=== PATIENT | female | born 1955 | race American Indian/Alaskan Native ===

== ENCOUNTER 2016-10-30 06:14 | Day surgery (SDC) | payer MEDICAID ==
[2016-10-30 07:10] VITALS: BMI 33.3
[2016-10-30 07:35] VITALS: O2SAT 100
[2016-10-30] MEDS ORDERED: Propofol 10 mg/ml Inj (20 ML) ONE (08:02)
[2016-10-30] MEDS ORDERED: Atropine 0.4 mg/ml Inj (1 mL) ONE (08:07)
--- NOTE | 2016-10-30 08:07 | CP.SDSHP ---
Same Day Surgery H & P - History Proposed Procedure: endoscopy colonoscopy Pre-Op Diagnosis: anemia, wt loss, reflux, change bowels - Previous Medical/Surgical History Cardiac: Hypertension Comments: duodenal cancer - Allergies Allergies: Allergies No Known Allergies Allergy (Verified 10/30/16 07:10) - Physical Exam Vital Signs: Vital Signs 10/30/16 10/30/16 07:34 08:01 Temperature 57 F L 97 F L Pulse Rate 9 L 57 L Respiratory 100 H 19 Rate Blood Pressure 160/71 H 160/71 H O2 Sat by Pulse 100 100 Oximetry Mental Status: Alert & Oriented x3 Neuro: WNL Heart: WNL Lungs: WNL GI: WNL - {Optional Preform as Required} Abdomen: WNL - Impression Impression: reflux, anemia, change bowels Pt. Evaluated Today:Candidate for Anesthesia & Procedure: Yes - Date & Time Date: 10/30/16 Time: 08:06 Short Stay Discharge - Short Stay Discharge Admitting Diagnosis/Reason for Visit: CHANGE IN BOWEL HABITS,GASTRO-ESOPHAGEAL REFLUX Disposition: HOME/ ROUTINE
[2016-10-30] MEDS ORDERED: ePHEDrine 50 mg/ml Inj ONE (08:23)
[2016-10-30 08:49] VITALS: TEMP 98.9
[2016-10-30 13:46] VITALS: BP 144/60; PULSE 61; RESP 12
== END 2016-10-30 11:20 | disposition home or self-care (01) ==
LOC: C.ENDO 06:14
PROVIDERS: ATTEND Internal Medicine Gastroenterology
DX: R19.4 Change in bowel habit (principal); K64.9 Unspecified hemorrhoids; K21.0 Gastro-esophageal reflux disease with esophagitis; D64.9 Anemia, unspecified; R63.4 Abnormal weight loss
CPT/HCPCS: 43239; 45378; 88305; J0461; J2001; J2704; J3010

== ENCOUNTER 2018-01-02 11:16 | Inpatient (IN) | payer MEDICARE ==
[2018-01-02 11:17] VITALS: BMI 33.3
[2018-01-02] MEDS ORDERED: Sodium Chloride 0.9% 1,000 ML IV ONE (12:12)
--- NOTE | 2018-01-02 13:00 | CT ---
Date of service: 01/02/2018 PROCEDURE: CT HEAD WITHOUT CONTRAST. HISTORY: syncope, left frontal contusion, colon cancer COMPARISON: None available. TECHNIQUE: Axial computed tomography images were obtained through the head/brain without intravenous contrast. Radiation dose: Total exam DLP = 970.2 mGy-cm. This CT exam was performed using one or more of the following dose reduction techniques: Automated exposure control, adjustment of the mA and/or kV according to patient size, and/or use of iterative reconstruction technique. FINDINGS: HEMORRHAGE: No intracranial hemorrhage. BRAIN: No mass effect or edema. No atrophy or chronic microvascular ischemic changes. Small hypodensities in the bilateral basal ganglia may represent prominent perivascular spaces versus small chronic lacunar infarcts. VENTRICLES: Unremarkable. No hydrocephalus. Cavum septum pellucidum. CALVARIUM: Unremarkable. PARANASAL SINUSES: Unremarkable as visualized. No significant inflammatory changes. MASTOID AIR CELLS: Unremarkable as visualized. No inflammatory changes. OTHER FINDINGS: Soft tissue swelling overlying the left frontal cranium IMPRESSION: No acute intracranial abnormality. Small hypodensities in the bilateral basal ganglia may represent prominent perivascular spaces versus small chronic lacunar infarcts. Soft tissue swelling overlying the left frontal cranium. If symptoms persists, consider correlation with MRI.
[2018-01-02] MEDS ORDERED: Sodium Chloride 0.9% 1,000 ML ONE (13:09)
[2018-01-02 13:14] LABS: BASO % 1.2 % (0.0-2.0); EOS # 0.1 K/uL (0.0-0.7); EOS % 3.5 % (0.0-4.0); HEMOGLOBIN 11.3 g/dL (11.0-16.0); LYMPH # 0.9 K/uL (1.0-4.3); LYMPH % 36.7 % (20.0-40.0); MEAN CORPUSCULAR HGB CONC 32.9 g/dL (33.0-37.0); MEAN PLATELET VOLUME 7.4 fL (7.2-11.7); MONO # 0.2 K/uL (0.0-0.8); MONO % 6.4 % (0.0-10.0); NEUT # 1.3 K/uL (1.8-7.0); NEUT % 52.2 % (50.0-75.0); NRBC % 0.2 % (0.0-2.0); RBC 4.36 Mil/uL (3.80-5.20); RED CELL DISTRIBUTION WIDTH 16.3 % (11.5-14.5)
[2018-01-02 13:15] LABS: WHITE BLOOD COUNT 2.4 K/uL (4.8-10.8)
[2018-01-02 13:23] LABS: SQUAMOUS EPITHIAL 5 /hpf (0-5); URINE BACTERIA RARE (<OCC); URINE BILIRUBIN NEGATIVE (NEGATIVE); URINE BLOOD NEGATIVE (NEGATIVE); URINE CLARITY Hazy (Clear); URINE COLOR Yellow (YELLOW); URINE GLUCOSE (UA) 3+ mg/dL (Normal); URINE LEUKOCYTE ESTERASE NEG Leu/uL (Negative); URINE PROTEIN 1+ mg/dL (NEGATIVE)
[2018-01-02 13:25] LABS: INR 1.5; PROTHROMBIN TIME 16.9 SECONDS (9.7-12.2)
[2018-01-02 13:29] LABS: ALB/GLOB RATIO 1.2 (1.0-2.1); ALBUMIN 3.2 g/dL (3.5-5.0); ALT/SGPT 26 U/L (9-52); AST/SGOT 22 U/L (14-36); BLOOD UREA NITROGEN 13 mg/dL (7-17); CALCIUM 8.3 mg/dl (8.6-10.4); GFR NON-AFRICAN AMERICAN > 60
--- NOTE | 2018-01-02 13:29 | RAD ---
Date of service: 01/02/2018 HISTORY: Shortness of breath COMPARISON: No prior. FINDINGS: LUNGS: Mild venous congestion. Left central venous catheter tip extending to the cavoatrial junction. Mild linear atelectasis at the right base. PLEURA: No significant pleural effusion identified, no pneumothorax apparent. CARDIOVASCULAR: No atherosclerotic calcification present Normal. OSSEOUS STRUCTURES: No significant abnormalities. VISUALIZED UPPER ABDOMEN: Normal. OTHER FINDINGS: None. IMPRESSION: Mild venous congestion. Left central venous catheter tip extending to the cavoatrial junction. Mild linear atelectasis at the right base.
[2018-01-02 13:41] LABS: B-TYPE NATRIURETIC PEPTIDE 75.3 pg/mL (0-900)
--- NOTE | 2018-01-02 15:02 | C.PDOC ---
History Of Present Illness 62 year old female referred by Dr. Alarcon for evaluation of a fall that occurred at the patients home. Patient states she struck her left forehead on fall, but does not remember falling. Patient states she did not stand suddenly when it happened. Patient reports she is under treatment for small bowel cancer and is receiving chemotherapy. Patient states she had a ct scan showing normal results 2 days ago. Denies fever, chills, neck pain, photophobia. - HPI Time Seen by Provider: 01/02/18 12:05 Chief Complaint (Nursing): Trauma History Per: Patient History/Exam Limitations: no limitations Onset/Duration Of Symptoms: Days Past Medical History Reviewed: Historical Data, Nursing Documentation, Vital Signs Vital Signs: Last Vital Signs Temp 98.0 F 01/02/18 11:22 Pulse 63 01/02/18 11:22 Resp 19 01/02/18 11:22 BP 128/73 01/02/18 11:22 Pulse Ox 100 01/02/18 11:22 - Medical History PMH: Colonic Polyps Denies: Fractures, TIA Surgical History: Endoscopy Family History: States: No Known Family Hx - Social History Hx Alcohol Use: No Hx Substance Use: No Review Of Systems Except As Marked, All Systems Reviewed And Found Negative. Constitutional: Negative for: Fever, Chills Cardiovascular: Negative for: Chest Pain Respiratory: Negative for: Cough, Shortness of Breath Musculoskeletal: Negative for: Neck Pain Neurological: Positive for: Other ((-) photophobia) Physical Exam - Physical Exam Appears: Non-toxic, No Acute Distress, Other (Pleasant) Skin: Warm, Dry Head: Atraumatic, Normacephalic Eye(s): bilateral: PERRL, EOMI Oral Mucosa: Moist Neck: Supple Cardiovascular: Rhythm Regular, No Murmur Respiratory: Normal Breath Sounds, No Rales, No Rhonchi, No Wheezing Gastrointestinal/Abdominal: Soft, No Tenderness Neurological/Psych: Oriented x3, Other (Awake, alert and oriented) ED Course And Treatment - Laboratory Results Result Diagrams: 01/02/18 13:07 01/02/18 13:07 Lab Interpretation: Normal (ua neg, trop neg.) ECG: Interpreted By Pr ECG Rhythm: Sinus Rhythm ECG Interpretation: Normal Rate From EC O2 Sat by Pulse Oximetry: 100 (RA) Pulse Ox Interpretation: Normal - Radiology CXR: Interpreted by Me CXR Interpretation: Yes: No Acute Disease - CT Scan/US head CT Other Rad Studies (CT/US): Radiology Report Reviewed (no acute findings) Reevaluation Time: 15:02 Reassessment Condition: Improved - Physician Consult Information Outcome Of Conversation: 1000, 1500 d/w akhil Villatoro to Obs, will consult. 1500: d/w akhil Martins to med/Surg Obs Medical Decision Making Medical Decision Making: syncope from standing with L frontal contusion/superficial lac normal w/u ? vasovagal vs meningial signs. consider LP and Brain MRI Plan: * CT head * EKG * Labs * Chest x-ray * Imodium * IV fluids * Toradol * Urinalysis Disposition Doctor Will See Patient In The: Office Counseled Patient/Family Regarding: Studies Performed, Diagnosis - Disposition Disposition: HOME/ ROUTINE Disposition Time: 15:04 Condition: GOOD - Clinical Impression Clinical Impression: Syncope and collapse, Head contusion - Scribe Statement The provider has reviewed the documentation as recorded by the Carlos A Vega Adi Provider Attestation: All medical record entries made by the Carlos A were at my direction and pe rsonally dictated by me. I have reviewed the chart and agree that the record accurately reflects my personal performance of the history, physical exam, medical decision making, and the department course for this patient. I have also personally directed, reviewed, and agree with the discharge instructions and disposition.
[2018-01-02] MEDS: Sodium Chloride 0.9% 1,000 ML IV SCH (17:00)
[2018-01-02] MEDS: (Novolin R) Insulin Human Regular 100 units/ml vial SC SCH (21:56)
--- NOTE | 2018-01-02 23:33 | CP.PCM.CON ---
History of Present Illness - History of Present Illness History of Present Illness: 62 yo woman with a history of small bowel cancer, diagnosed when she presented with iron deficiency anemia in 2016, underwent extensive surgery followed by postop chemo. She was in remission for less than a year, only to have disease r ecurrence and has been on chemo since. She has been tolerating chemo fairly well, on 5FU and Oxaliplatin therapy, when she started developing ataxia, with falls at home and more recently with LOC and resultant fall. The patient said she woke up on the floor this morning and was not sure how she ended up there. Called EMT who brought her in for further evaluation and work up. PMHx- Significant for HTN, newly diagnosed DM, history of 5FU related angina relieved by po nitrates Past Patient History - Past Medical History & Family History Past Medical History?: No - Past Social History Smoking Status: Former Smoker - CARDIAC Hx Heart Attack: No - NEUROLOGICAL Hx Transient Ischemic Attacks (TIA): No - ENDOCRINE/METABOLIC Hx Diabetes Mellitus Type 2: Yes - HEMATOLOGICAL/ONCOLOGICAL Hx Cancer: Yes (DUODENAL) Hx Chemotherapy: Yes (PRESENTLY Q 3 WEEKS) - MUSCULOSKELETAL/RHEUMATOLOGICAL Hx Fractures: No - GASTROINTESTINAL Hx Gastrointestinal Disorders: Yes Hx Bowel Surgery: Yes (WHIPPLE PROCEDURE 2013) Other/Comment: DUODENAL CANCER; MALROTATED INTESTINES - PSYCHIATRIC Hx Substance Use: No - SURGICAL HISTORY Hx Surgeries: Yes Hx Hysterectomy: Yes (PARTIAL 1990; FIBROIDS) Other/Comment: WHIPPLE - ANESTHESIA Hx Anesthesia: Yes Hx Anesthesia Reactions: No Hx Malignant Hyperthermia: No Meds Allergies/Adverse Reactions: Allergies Allergy/AdvReac Type Severity Reaction Status Date / Time No Known Allergies Allergy Verified 01/02/18 11:25 - Medications Medications: Current Medications Heparin Sodium (Porcine) (Heparin) 5,000 units SC Q8 [facility] Last Admin: 01/02/18 22:40 Dose: 5,000 units Sodium Chloride (Sodium Chloride 0.9%) 1,000 mls @ 50 mls/hr IV .Q20H [facility] Last Admin: 01/02/18 17:00 Dose: 50 mls/hr Insulin Human Regular (Novolin R) 0 unit SC ACHS [facility]; Protocol Last Admin: 01/02/18 21:56 Dose: Not Given Pantoprazole Sodium (Protonix Inj) 40 mg IVP DAILY [facility] Pneumococcal Polyvalent Vaccine (Pneumovax 23 Vaccine) 0.5 ml IM .ONCE ONE Stop: 01/04/18 10:01 Results - Vital Signs Recent Vital Signs: Last Vital Signs Temp 98.2 F 01/02/18 16:00 Pulse 60 01/02/18 16:00 Resp 20 01/02/18 16:00 BP 113/67 01/02/18 16:00 Pulse Ox 97 01/02/18 19:43 - Labs Result Diagrams: 01/02/18 13:07 01/02/18 13:07 Labs: Laboratory Results - last 24 hr 01/02/18 01/02/18 01/02/18 13:07 13:07 13:07 WBC 2.4 L D RBC 4.36 Hgb 11.3 Hct 34.5 MCV 79.0 L MCH 26.0 L MCHC 32.9 L RDW 16.3 H Plt Count 189 D MPV 7.4 Neut % (Auto) 52.2 Lymph % (Auto) 36.7 Yates % (Auto) 6.4 Eos % (Auto) 3.5 Baso % (Auto) 1.2 Neut # (Auto) 1.3 L Lymph # (Auto) 0.9 L Yates # (Auto) 0.2 Eos # (Auto) 0.1 Baso # (Auto) 0.0 PT 16.9 H INR 1.5 APTT 57 H Sodium 137 Potassium 3.7 Chloride 101 Carbon Dioxide 24 Anion Gap 15 BUN 13 Creatinine 0.8 Est GFR ( Amer) > 60 Est GFR (Non-Af Amer) > 60 POC Glucose (mg/dL) Random Glucose 210 H Calcium 8.3 L Magnesium 1.9 Total Bilirubin 1.6 H AST 22 ALT 26 Alkaline Phosphatase 117 Troponin I < 0.0120 NT-Pro-B Natriuret Pep 75.3 Total Protein 5.9 L Albumin 3.2 L D Globulin 2.7 Albumin/Globulin Ratio 1.2 Urine Color Urine Clarity Urine pH Ur Specific [place] Urine Protein Urine Glucose (UA) Urine Ketones Urine Blood Urine Nitrate Urine Bilirubin Urine Urobilinogen Ur Leukocyte Esterase Urine WBC (Auto) Urine RBC (Auto) Ur Squamous Epith Cells Urine Bacteria Hyaline Casts 01/02/18 01/02/18 13:07 17:36 WBC RBC Hgb Hct MCV MCH MCHC RDW Plt Count MPV Neut % (Auto) Lymph % (Auto) Yates % (Auto) Eos % (Auto) Baso % (Auto) Neut # (Auto) Lymph # (Auto) Yates # (Auto) Eos # (Auto) Baso # (Auto) PT INR APTT Sodium Potassium Chloride Carbon Dioxide Anion Gap BUN Creatinine Est GFR ( Amer) Est GFR (Non-Af Amer) POC Glucose (mg/dL) 220 H Random Glucose Calcium Magnesium Total Bilirubin AST ALT Alkaline Phosphatase Troponin I NT-Pro-B Natriuret Pep Total Protein Albumin Globulin Albumin/Globulin Ratio Urine Color Yellow Urine Clarity Hazy Urine pH 6.0 Ur Specific [place] 1.021 Urine Protein 1+ H Urine Glucose (UA) 3+ H Urine Ketones 1+ H Urine Blood Negative Urine Nitrate Negative Urine Bilirubin Negative Urine Urobilinogen 2.0 H Ur Leukocyte Esterase Neg Urine WBC (Auto) 2 Urine RBC (Auto) 2 Ur Squamous Epith Cells 5 Urine Bacteria Rare Hyaline Casts 6-10 H Assessment & Plan (1) Duodenal cancer Assessment and Plan: 62 yo woman with metastatic , progressive small bowel cancer, on several different chemotherapeutic agents for almost the past 2 years, new generalized weakness, ataxia, decreased appetite, ?LOC and falls. CAT scan of the head 2 days before admission, not showing any lesions/ bleed. Plan- MRI head, neuro eval, PT/OT Repeat labs, chemo on hold till above eval complete Status: Acute
[2018-01-03 08:07] LABS: FREE T4 1.43 ng/dL (0.78-2.19)
[2018-01-03] MEDS: (Novolin R) Insulin Human Regular 100 units/ml vial SC SCH ×4 (08:10→21:34)
[2018-01-03 08:15] LABS: PROLACTIN 14.6 ng/mL (3.0-18.9)
[2018-01-03 10:49] VITALS: RESP 20
[2018-01-03] MEDS: Sodium Chloride 0.9% 1,000 ML IV SCH (14:00)
--- NOTE | 2018-01-03 14:06 | CP.PCM.CON ---
History of Present Illness - History of Present Illness History of Present Illness: CONSULTATION DICTATED NEW SYNCOPE SUB ACUTE PROCESS OF IMBALANCE LEFT PLANTARS ARE UP -NEW VS OLD NEUROPATHY - PRE EXISTING MRI/EEG/BLOOD/CAROTID/PT ANTI PLATELETS Past Patient History - Past Medical History & Family History Past Medical History?: No - Past Social History Smoking Status: Former Smoker - CARDIAC Hx Heart Attack: No - NEUROLOGICAL Hx Transient Ischemic Attacks (TIA): No - ENDOCRINE/METABOLIC Hx Diabetes Mellitus Type 2: Yes - HEMATOLOGICAL/ONCOLOGICAL Hx Cancer: Yes (DUODENAL) Hx Chemotherapy: Yes (PRESENTLY Q 3 WEEKS) - MUSCULOSKELETAL/RHEUMATOLOGICAL Hx Fractures: No - GASTROINTESTINAL Hx Gastrointestinal Disorders: Yes Hx Bowel Surgery: Yes (WHIPPLE PROCEDURE 2013) Other/Comment: DUODENAL CANCER; MALROTATED INTESTINES - PSYCHIATRIC Hx Substance Use: No - SURGICAL HISTORY Hx Surgeries: Yes Hx Hysterectomy: Yes (PARTIAL 1990; FIBROIDS) Other/Comment: WHIPPLE - ANESTHESIA Hx Anesthesia: Yes Hx Anesthesia Reactions: No Hx Malignant Hyperthermia: No Meds Allergies/Adverse Reactions: Allergies Allergy/AdvReac Type Severity Reaction Status Date / Time No Known Allergies Allergy Verified 01/02/18 11:25 - Medications Medications: Current Medications Heparin Sodium (Porcine) (Heparin) 5,000 units SC Q8 [facility] Last Admin: 01/03/18 05:44 Dose: 5,000 units Sodium Chloride (Sodium Chloride 0.9%) 1,000 mls @ 50 mls/hr IV .Q20H [facility] Last Admin: 01/02/18 17:00 Dose: 50 mls/hr Insulin Human Regular (Novolin R) 0 unit SC ACHS [facility]; Protocol Last Admin: 01/03/18 12:15 Dose: 2 unit Lorazepam (Ativan) 1 mg IVP ONCE ONE Stop: 01/03/18 14:02 Pantoprazole Sodium (Protonix Inj) 40 mg IVP DAILY [facility] Last Admin: 01/03/18 10:30 Dose: 40 mg Pneumococcal Polyvalent Vaccine (Pneumovax 23 Vaccine) 0.5 ml IM .ONCE ONE Stop: 01/04/18 10:01 Results - Vital Signs Recent Vital Signs: Last Vital Signs Temp 99.1 F 01/03/18 10:49 Pulse 60 01/03/18 10:49 Resp 20 01/03/18 10:49 BP 117/75 01/03/18 10:49 Pulse Ox 95 01/03/18 10:49 - Labs Result Diagrams: 01/02/18 13:07 01/02/18 13:07 Labs: Laboratory Results - last 24 hr 01/02/18 01/03/18 01/03/18 17:36 07:20 07:20 POC Glucose (mg/dL) 220 H Triglycerides 96 Cholesterol 111 LDL Cholesterol Direct 46 HDL Cholesterol 59 Free T4 1.43 TSH 3rd Generation 0.66 Prolactin 14.6
[2018-01-03] MEDS ORDERED: Aluminum Hydroxide/Magnesium Hydroxide Susp (30 mL) PO STA (16:06)
--- NOTE | 2018-01-04 07:56 | CP.PCM.HP ---
History of Present Illness - History of Present Illness History of Present Illness: Chief complaint: Fall in the house History present illness: 61-year-old female with history of hypertension, heart disease, history of chemotherapy-induced heart disease. October 2013, patient underwent extensive abdominal surgery for pancreaticoduodenal cancer, Whipple's procedure. Following the procedure. Patient underwent chemotherapy for 6 months. Again recently with a followup CAT scan showing evidence of recurrence and star pankaj chemotherapy again. During the surgical intervention significant complications noted. But she r ecovered completely now. Patient was recently diagnosed with the very uncontrolled blood sugar, started on insulin. Given the history of pancreatic cancer oral anti-glycemic control was not started. For last 1 week she was having increasing difficulty in walking, climbing stairs. On the day of admission patient was trying to walk in the kitchen, and was not able to stand up and she fell on the floor, and she crawled to the bed following that. She last consciousness, but not clear how long. She did not take insulin for almost 3 days. She was also not eating well. She is also having difficult time in checking the blood sugar. Currently she is receiving intravenous IV fluids, also Decadron by the oncologist. She did not have any nausea, there was no evidence of seizure-like activities. Patient lives by herself. As the patient got the consciousness back she called the sister and who brought her to the hospital. In the hospital patient was feeling weak. But she was conscious and alert and awake and answering all the questions. She still having episodes of abdominal bloated sensation, nausea, and episodes of not eating well, pain, some occasional constipation. Patient also being treated for hypertension, osteoporosis and osteoarthritis. In the past many years ago patient had arthroscopy to the right knee, injection to the right knee, and following that the symptoms got better. Past medical history: Hypertension, osteoporosis, osteoarthritis, right knee pain history of pancrea tic duodenal cancer Surgical history: Right knee arthroscopy. Whipple's procedure in September 14, 2013 Chemotherapy, current chemotherapy. Family history: Father is 86-year-old, diabetes. Mother had a history of breast cancer, at the age of 89. Siblings healthy. Patient has no kids. Social history: Denies any smoking. Drinks alcohol occasionally. Drinks coffee and tea. Currently not working. 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 Patient had a mammogram in December 2017 normal Review of systems: No headache noted, occasional muscle spasm noted, denies any sinus symptoms, no chest pain, exertional shortness of breath noted, some gas and the bloated sensation in the abdomen noted. No skin lesions. On examination: HEENT PERRLA, neck supple No thyromegaly was noted and no cervical adenopathy noted Chest bilateral good air entry, no wheezing or rales noted CVS regular heart sound, no murmur Abdomen soft and no organomegaly Extremities no pedal edema, no leg swelling, pedal pulses are good. [employer] alert awake oriented x3 no functional neurological deficit. Significant weakness of the pelvic muscles noted,patient not able to hold her back properly. Weakness of the pelvic muscles and the pelvic girdle weakness noted Patient is having tenderness over the medial joint area, and it medial right tibiofemoral other area. Right knee moment is full patient's labs reviewed Nonspecific Elevated cholesterol, blood sugar noted. CAT scan of the head negative. Patient had Abrasion over the forehead Assessment/recommendation: 61-year-old female with multiple medical history hypertension, osteoarthritis, osteoporosis.Cancer of the pancreas Patient had a history of Whipple's procedure. Postoperatively having nonsignificant abdominal symptoms. Right knee pain, associate of osteoarthritis Patient may need intra-articular injection Patient admittedFollowing the fall. patient possibly has a hypoglycemic event,possible pelvic muscle weakness. Neuropathy seizure like activity possible Neurology evaluation oncology evaluation DVT, GI prophylaxis Glucose control. , Present on Admission - Present on Admission Any Indicators Present on Admission: No History of DVT/PE: No History of Uncontrolled Diabetes: No Urinary Catheter: No Decubitus Ulcer Present: No Past Patient History - Past Medical History & Family History Past Medical History?: No - Past Social History Smoking Status: Former Smoker - CARDIAC Hx Heart Attack: No - NEUROLOGICAL Hx Transient Ischemic Attacks (TIA): No - ENDOCRINE/METABOLIC Hx Diabetes Mellitus Type 2: Yes - HEMATOLOGICAL/ONCOLOGICAL Hx Cancer: Yes (DUODENAL) Hx Chemotherapy: Yes (PRESENTLY Q 3 WEEKS) - MUSCULOSKELETAL/RHEUMATOLOGICAL Hx Fractures: No - GASTROINTESTINAL Hx Gastrointestinal Disorders: Yes Hx Bowel Surgery: Yes (WHIPPLE PROCEDURE 2013) Other/Comment: DUODENAL CANCER; MALROTATED INTESTINES - PSYCHIATRIC Hx Substance Use: No - SURGICAL HISTORY Hx Surgeries: Yes Hx Hysterectomy: Yes (PARTIAL 1989; FIBROIDS) Other/Comment: WHIPPLE - ANESTHESIA Hx Anesthesia: Yes Hx Anesthesia Reactions: No Hx Malignant Hyperthermia: No Meds Allergies/Adverse Reactions: Allergies Allergy/AdvReac Type Severity Reaction Status Date / Time No Known Allergies Allergy Verified 01/02/18 11:25 Results - Vital Signs Recent Vital Signs: Last Vital Signs Temp 98.5 F 01/03/18 16:00 Pulse 54 L 01/03/18 16:00 Resp 20 01/03/18 16:00 BP 119/75 01/03/18 16:00 Pulse Ox 99 01/03/18 16:00 - Labs Result Diagrams: 01/02/18 13:07 01/02/18 13:07 Labs: Laboratory Results - last 24 hr 01/03/18 01/03/18 07:20 07:20 LDL Cholesterol Direct 46 Free T4 1.43 TSH 3rd Generation 0.66 Prolactin 14.6
--- NOTE | 2018-01-04 07:58 | CP.PCM.PN ---
Subjective - Date & Time of Evaluation Date of Evaluation: 01/03/18 Time of Evaluation: 20:00 - Subjective Subjective: Patient is having hard time in eating. She is able to have some breakfast. But no lunch. Having the nutritional supplementation. Patient calorie intake is low. No chest pain. Able to use bedside commode On examination: Vital signs stable. Chest good air entry. Regular heart sound. Reflexes normal Currently seen by neurologist. MRI pending. Labs pending. Assessment: 62-year-old female with a history of pancreatic cancer. Postprocedure. Hypertension diabetes. New onset diabetes. Diabetic neuropathy, pelvic muscle myopathy cannot be ruled out. Neurological follow-up. Will follow-up the patient Objective - Vital Signs/Intake and Output Vital Signs (last 24 hours): Temp Pulse Resp BP Pulse Ox 98.5 F 54 L 20 119/75 99 01/03/18 16:00 01/03/18 16:00 01/03/18 16:00 01/03/18 16:00 01/03/18 16:00 Intake and Output: 01/04/18 01/04/18 06:59 18:59 Intake Total 900 Balance 900 - Medications Medications: Current Medications Aspirin (Ecotrin) 81 mg PO DAILY [facility] Heparin Sodium (Porcine) (Heparin) 5,000 units SC Q8 [facility] Last Admin: 01/04/18 06:36 Dose: 5,000 units Sodium Chloride (Sodium Chloride 0.9%) 1,000 mls @ 50 mls/hr IV .Q20H [facility] Last Admin: 01/03/18 14:00 Dose: 50 mls/hr Insulin Human Regular (Novolin R) 0 unit SC ACHS [facility]; Protocol Last Admin: 01/03/18 21:34 Dose: Not Given Lorazepam (Ativan) 1 mg IVP ONCE PRN PRN Reason: MRI Stop: 01/04/18 14:53 Pantoprazole Sodium (Protonix Inj) 40 mg IVP DAILY [facility] Last Admin: 01/03/18 10:30 Dose: 40 mg Pneumococcal Polyvalent Vaccine (Pneumovax 23 Vaccine) 0.5 ml IM .ONCE ONE Stop: 01/04/18 10:01 - Labs Labs: 01/02/18 13:07 01/02/18 13:07 PT 16.9 SECONDS (9.7-12.2) H 10/20/18 13:07 INR 1.5 01/02/18 13:07 APTT 57 SECONDS (21-34) H 01/02/18 13:07
[2018-01-04] MEDS: (Novolin R) Insulin Human Regular 100 units/ml vial SC SCH ×4 (08:00→21:22)
[2018-01-04] MEDS ORDERED: Pneumococcal 23-Valent Vaccine IM ONE (10:00)
[2018-01-04] MEDS: Sodium Chloride 0.9% 1,000 ML IV SCH (10:00)
[2018-01-04] MEDS ORDERED: Gadodiamide 287 mg/ml 20 ml IV ONE (12:50)
--- NOTE | 2018-01-04 13:03 | PN ---
DATE: 01/04/2018 TIME OF EVALUATION: 07:05 a.m. NEUROLOGICAL PROBLEM: Subacute presence of balance problem with syncope. PHYSICAL EXAMINATION: VITAL SIGNS: Blood pressure 119/75 with mean arterial pressure of 89, respiratory rate 18, pulse rate 54, temperature 98.5 degrees Fahrenheit. The patient is comfortably sleeping, easily arousable on calling her first name. Speech is clear. She is claiming Levemir could be the cause for her losing her balance and passing out spell. She walked independently yesterday without any assistance. She claims . Examination which is unchanged to compare with my yesterday's examination except bilateral distal symmetric sensory motor neuropathy. Re-scheduled workup. MRI and electroencephalogram is on progress. Recent blood workup is not on board yet. The patient will be followed closely with you. Suhas Bourne MD
--- NOTE | 2018-01-04 15:29 | MRI ---
Date of service: 01/04/2018 PROCEDURE: MRI BRAIN WITH AND WITHOUT CONTRAST HISTORY: ataxia, confusion COMPARISON: Noncontrast head CT from 01/02/2018. TECHNIQUE: Multiplanar, multisequence MR images of the brain were obtained with and without intravenous contrast enhancement. 16 mL Omniscan was injected intravenously. FINDINGS: HEMORRHAGE: None DWI: No evidence of an acute or early subacute infarction. BRAIN PARENCHYMA: There are mild chronic microangiopathic changes. There is no mass mass effect or abnormal extra-axial fluid collection. The midline sagittal structures are normal. ENHANCEMENT: No abnormal intracranial enhancement. VENTRICLES: There are prominent perivascular spaces in bilateral basal ganglia. There is mild age-related global parenchymal volume loss and proportionate enlargement of the ventricles and cortical sulci. There is a cavum septum pellucidum. CRANIUM: There is normal bone marrow signal pattern. ORBITS: Grossly unremarkable. PARANASAL SINUSES/MASTOIDS: Predominantly clear. VASCULAR SYSTEM: There are normal signal voids in the larger intracranial arteries. OTHER FINDINGS: None . IMPRESSION: No acute intracranial abnormality. Mild chronic microangiopathic changes and mild age-related global parenchymal volume loss.
--- NOTE | 2018-01-04 16:55 | CON ---
DATE: 01/02/2018 ROOM NUMBER: Room #368, bed B. REASON FOR CONSULTATION: Syncopal attack . CHIEF COMPLAINT: The patient was brought into [facility] as per her attending advise because of new-onset of syncopal attack at home. From neurological point of view, I was called in to evaluate her for further management. HISTORY OF PRESENT ILLNESS: Ms. Jessa Yanes is a 62-year-old right-handed moderately obese female in her usual state of health. The day on admission, while she was going to grape picker her [place] for her stomach pain, the next thing she realized she was on the floor. She could not able to recall what went wrong to make her to fall on the floor and how long she was on the floor. No witness to seizure activities because she is living alone. No bowel and bladder incontinence at the scene. No bitten tongue. From the fall, she bruised her left frontal area. Immediately, she called her sister, and then she advised her to call her cordwainer, and she was advised to come to the hospital for further evaluation. No similar episodes happened in the past. PAST MEDICAL HISTORY Small bowel cancer, been diagnosed in 2013. She had undergone surgical resection, went on chemotherapy for 6 months. Since she had a recurrent problem, she was started back on chemotherapy of infusion every 3 weeks. She has been noticing for the last 1 month, often losing her balance, tendency to move her body, either left or right side. She also lost her taste for the last few weeks. No history of headache. No history of visual or bulbar dysfunction. No history of neck pain. No history of lower back pain. No history of bowel and bladder incontinence. PAST SURGICAL HISTORY: Endoscopy and stomach surgery. PERSONAL HISTORY: Denies smoking or alcohol use. ALLERGIES: NO KNOWN ALLERGIES. REVIEW OF SYSTEMS: A 12-point system being reviewed for neuro syncopal attack. MEDICATIONS: Heparin, Novolin, Pneumovax, Protonix and IV fluids. PHYSICAL EXAMINATION VITAL SIGNS: Blood pressure 117/75, mean arterial pressure of 89, respiratory rate 18, pulse rate 60 regular, and temperature 99.1 degrees Fahrenheit. NECK: Supple. No carotid bruits. HEART: Sounds are regular. LUNGS: Chest fair air entry. EXTREMITIES: No edema in the legs. ABDOMEN: Soft. NEUROLOGIC: The patient is awake, alert and orient to person, place and time. The speech is clear. Naming, repetition, fluency, and comprehension all within normal. CRANIAL NERVE EXAMINATION: Visual field intact. Pupils reactive to light. Extraocular movement normal. No nystagmus. No facial sensory deficit. No facial asymmetry. Hearing is normal. Tongue is midline. Good gag. MOTOR EXAMINATION: Outstretched hand with eyes closed, no drift noted. No asterixis. Power is symmetric on either side of her upper extremities. Both legs, could able to lift against the gravity. DEEP TENDON REFLEXES: Left upper extremity is 1+, right upper extremity is absent. Both knees are absent. Both ankles are absent. Plantar's are upgoing on her left side, right side was downgoing. SENSORY EXAMINATION: Significantly increased pinprick in both lower extremities, decreased vibration and position sense are intact. COORDINATION: Eafrkk-knhe-dmyrri test is intact. GAIT: Broad-based gait. CONCLUSION: As per neurological examination, Ms. Jessa Yanes has been presenting with new onset of syncopal attack which is superimposed with subacute process of imbalance, and as per neurological examination shows right cortical dysfunction manifesting with left hemiparesis. It is probably new versus old. WORKUP: CT of the head reviewed, no acute pathology is noted. BLOOD WORKUP: WBC 2.4, hemoglobin 11.3, hematocrit 34.5, and platelets 189. PT is 16.9, INR 1.5, and PTT is 57. Sodium 137, potassium 3.7, chloride 101, bicarbonate 24, BUN 13, creatinine 0.8, GFR more than 60, glucose 220, magnesium 1.9, cholesterol 111, LDL of 46, HDL 59, TSH is 0.66. Prolactin . Urine shows there is 1+ proteinuria, 3+ glycosuria, and 1+ ketonuria with hyaline cast noted. RECOMMENDATIONS: 1. Hydration. 2. MRI of the brain with and without gadolinium to rule out any metastatic process or ischemic process. 3. Carotid Doppler to assess the stenosis. 4. EEG to rule out any paroxysmal activities or focal slowing. 5. Aspirin should be started to prevent a stroke. 6. Out of bed and physical therapy should be followed, and keep her fall precaution. The patient condition meanwhile discussed. The patient agreed to plan of management. The patient will be followed closely with you during the hospitalization. Oleksandr Arndt MD [facility] # [id number]
[2018-01-05] MEDS: Sodium Chloride 0.9% 1,000 ML IV SCH (04:44)
[2018-01-05] MEDS: (Novolin R) Insulin Human Regular 100 units/ml vial SC SCH ×2 (08:01→12:05)
[2018-01-05 08:31] VITALS: BP 127/75; PULSE 60; TEMP 98.7; O2SAT 100
[2018-01-05] MEDS ORDERED: Influenza Vaccine 60 MCG/0.5 ML SYR (3 yr & up) IM ONE (12:30)
--- NOTE | 2018-01-05 12:52 | PN ---
DATE: 01/05/2018 TIME OF EVALUATION: 07:05 a.m. NEUROLOGICAL PROBLEM: Syncopal attack with metabolic encephalopathy superimposed with neuropathy. PHYSICAL EXAMINATION: VITAL SIGNS: Blood pressure 124/82, mean arterial pressure of 96, respiratory rate 18, temperature 98.5 with a pulse rate of 58. The patient is sleepy, easily arousable on calling her first name. She appears good. No new symptoms. No dizziness. No visual or verbal dysfunction. She is ambulatory on her own. The recommended MRI of the brain has been reviewed by me. 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 No metastatic processes noted. Her examination which is unchanged to compare with my previous examination. Her sugar was 215 last night. The patient should get out of the bed and encourage her ambulation. Neurologically the patient is stable at present. Suhas Bourne MD
--- NOTE | 2018-01-05 16:59 | CP.PCM.PN ---
Subjective - Date & Time of Evaluation Date of Evaluation: 01/05/18 Time of Evaluation: 11:00 - Subjective Subjective: Alert and orientedx3, no acute distress. Objective - Vital Signs/Intake and Output Vital Signs (last 24 hours): Temp Pulse Resp BP Pulse Ox 98.7 F 60 20 127/75 100 01/05/18 07:00 01/05/18 07:00 01/05/18 07:00 01/05/18 07:00 01/05/18 07:00 Intake and Output: 01/05/18 01/05/18 06:59 18:59 Intake Total 1610 Output Total 0 Balance 1610 - Labs Labs: 01/02/18 13:07 01/02/18 13:07 PT 16.9 SECONDS (9.7-12.2) H 01/02/18 13:07 INR 1.5 01/02/18 13:07 APTT 57 SECONDS (21-34) H 01/02/18 13:07 Assessment and Plan - Assessment and Plan (Free Text) Assessment: 62 Year old female admitted with syncope episode, gait ataxia, seen and examined. Denies any complaints. Alert and orientedx3, no acute distress. MRI of the brain shows no acute changes. Discussed with DR Arndt, plan to discharge home today. Refused to start with glipizide, says going to monitor blood sugar levels and follow up with DR Arndt in 1 week. Arranged home care, home PT.
--- NOTE | 2018-01-05 19:36 | CARD ---
APPROVED REPORT Date of service: 01/02/2018 EKG Measurement Heart [id number] <Conclusion> Sinus bradycardia Left axis deviation Abnormal ECG
[2018-01-06] MEDS ORDERED: Pantoprazole 40 mg EC Tab PO SCH (10:00)
--- NOTE | 2018-01-06 10:32 | VASCLAB ---
Date of service: 01/04/2018 PROCEDURE: Carotid Duplex Exam. HISTORY: Syncope, Ataxia COMPARISON: None available. TECHNIQUE: Grayscale and duplex Doppler evaluation of the cervical carotid and vertebral arteries were performed. The common carotid, carotid bifurcations and cervical Internal Carotid Artery (ICA) and proximal External Carotid Artery (ECA) were evaluated. The vertebral arteries were evaluated for gross patency and flow direction. Report prepared by Corey Raza, BS, RVT FINDINGS: RIGHT CAROTID ARTERIES: 1. Common Carotid Artery: No significant focal plaque formation of the right common carotid artery. Maximum Peak Systolic velocity: 76 cm/sec: End-diastolic velocity 15 cm/sec. 2. Carotid Bifurcation: plaque formation. Maximum Peak Systolic velocity: 52 cm/sec: End-diastolic velocity 13 cm/sec. 3. Internal Carotid Artery: Plaque description: 3.1. Proximal Segment: Peak systolic velocity 74 cm/sec: End-diastolic velocity 23 cm/sec - % stenosis 0-15% 3.2. Middle Segment: Peak systolic velocity 68 cm/sec: End-diastolic velocity 23 cm/sec - % stenosis 0-15% 3.3. Distal Segment: Peak systolic velocity 80 cm/sec: End-diastolic velocity 30 cm/sec - % stenosis 0-15% 4. External Carotid Artery: No significant focal plaque formation. Peak systolic velocity 83 cm/sec 5. ICA/CCA Ratio: 1.1 LEFT CAROTID ARTERIES: 1. Common Carotid Artery: No significant focal plaque formation of the left common carotid artery. Maximum Peak Systolic velocity: 96 cm/sec: End-diastolic velocity 15 cm/sec. 2. Carotid Bifurcation: plaque formation. Maximum Peak Systolic velocity: 69 cm/sec: End-diastolic velocity 12 cm/sec. 3. Internal Carotid Artery: Plaque description: 3.1. Proximal Segment: Peak systolic velocity 70 cm/sec: End-diastolic velocity 26 cm/sec - % stenosis 0-15% 3.2. Middle Segment: Peak systolic velocity 97 cm/sec: End-diastolic velocity 36 cm/sec - % stenosis 0-15% 3.3. Distal Segment: Peak systolic velocity 93 cm/sec: End-diastolic velocity 32 cm/sec - % stenosis 0-15% 4. External Carotid Artery: No significant focal plaque formation. Peak systolic velocity 88 cm/sec 5. ICA/CCA Ratio: 1.5 VERTEBRAL ARTERIES: 1. Right Vertebral Artery: The right vertebral artery flow direction is antegrade. 2. Left Vertebral Artery: The left vertebral artery flow direction is antegrade. OTHER FINDINGS: 1. Right Brachial Blood pressure: 138 mmHg. 2. Left Brachial Blood pressure: 130 mmHg. 3. No atherosclerotic calcification present IMPRESSION: RIGHT: Duplex scan does not suggest hemodynamically significant stenosis of the right extracranial carotid arteries. LEFT: Duplex scan does not suggest hemodynamically significant stenosis of the left extracranial carotid arteries.
== END 2018-01-05 14:15 | disposition home or self-care (01) | DRG 73 ==
LOC: C.ER 11:16 → C.9E 15:05 → C.3T 15:50 → OBSVTOIN 01-04 14:35
PROVIDERS: ADMIT Internal Medicine; ATTEND Internal Medicine
DX: E11.40 Type 2 diabetes mellitus with diabetic neuropathy, unspecified (principal); G93.41 Metabolic encephalopathy; R55 Syncope and collapse; G81.94 Hemiplegia, unspecified affecting left nondominant side; S00.83XA Contusion of other part of head, initial encounter; C17.9 Malignant neoplasm of small intestine, unspecified; C25.9 Malignant neoplasm of pancreas, unspecified; I10 Essential (primary) hypertension; M19.90 Unspecified osteoarthritis, unspecified site; M81.0 Age-related osteoporosis without current pathological fracture; W19.XXXA Unspecified fall, initial encounter; E66.9 Obesity, unspecified; G93.89 Other specified disorders of brain; R26.0 Ataxic gait; M17.11 Unilateral primary osteoarthritis, right knee; Y92.009 Unspecified place in unspecified non-institutional (private) residence as the place of occurrence of the external cause; Z90.411 Acquired partial absence of pancreas; Z80.3 Family history of malignant neoplasm of breast; Z83.3 Family history of diabetes mellitus; Z86.010 Personal history of colon polyps; Z90.710 Acquired absence of both cervix and uterus; Z87.891 Personal history of nicotine dependence; Z85.07 Personal history of malignant neoplasm of pancreas; Z92.21 Personal history of antineoplastic chemotherapy; Z79.4 Long term (current) use of insulin

== ENCOUNTER 2018-05-15 22:14 | Observation (INO) | payer MEDICARE ==
[2018-05-15 22:15] VITALS: BMI 33.3
--- NOTE | 2018-05-15 22:48 | C.PDOC ---
History Of Present Illness 62 year old female with PMHx of HTN, heart diseasem Hx of chemotherapy- induced heart disease presents to the ED c/o generalized weakness, decreased appetite, weight loss that has been worsening for the last several days. Patient also reports intermittent chronic abdominal pain, which has now resolved "Because I haven't been eating anything". Patient saw Dr. Alarcon on 05/11 s/p IVF and Keytruda. Patient has history of abdominal surgery for pancreaticoduodenal cancer, Whipple's procedure. Patient denies fever, chills, headache, CP, SOB, palpitations, rash, dysuria, recent travel, sick contacts. GEN WEAKNESS, DECR APPETITE, WT LOSS WORSENING X SEV DAYS. INTERMIT CHRONIC ABD PAIN, NOW RESOLVED "BC I HAVEN'T BEEN EATING ANYTHING. SAW DR LOPEZ 05/11 SP IVF AND KEYTRUDA. NO FEVER hypertension, heart disease, history of chemotherapy-induced heart disease. October 2013, HO abdominal surgery for pancreaticoduodenal cancer, Whipple's procedure. EXAM MILD DIST NONTOXIC HEENT NO PALLOR MMM ABD NEG REMAINDER NEG Time Seen by Provider: 05/15/18 22:46 Chief Complaint (Nursing): Abdominal Pain History Per: Patient History/Exam Limitations: no limitations Onset/Duration Of Symptoms: Days Current Symptoms Are (Timing): Still Present Reports Recently: Treated By A Physician (05/11 DR LOPEZ ) Recent travel outside of the [place]: No Additional History Per: Patient Past Medical History Reviewed: Historical Data, Nursing Documentation, Vital Signs Vital Signs: Last Vital Signs Temp 98.2 F 05/15/18 22:40 Pulse 96 H 05/15/18 22:40 Resp 20 05/15/18 22:40 BP 114/77 05/15/18 22:40 Pulse Ox 100 05/15/18 22:40 - Medical History PMH: Anxiety, Colonic Polyps Denies: Fractures, Chronic Kidney Disease, TIA Other PMH: chemotherapy-induced heart disease, pancreaticoduodenal cancer Surgical History: Endoscopy Other Surgeries: Whipple's procedure. Family History: States: Unknown Family Hx - Social History Hx Alcohol Use: No Hx Substance Use: No - Immunization History Hx Influenza Vaccination: Yes Hx Pneumococcal Vaccination: Yes Review Of Systems Constitutional: Positive for: Weight loss. Negative for: Fever, Chills Cardiovascular: Negative for: Chest Pain, Palpitations Respiratory: Negative for: Shortness of Breath Gastrointestinal: Positive for: Abdominal Pain. Negative for: Nausea, Vomiting, Diarrhea Skin: Negative for: Rash Neurological: Positive for: Weakness. Negative for: Numbness Physical Exam - Physical Exam Appears: Non-toxic, In Acute Distress Skin: Normal Color, Warm, Dry Head: Atraumatic, Normacephalic Eye(s): bilateral: Normal Inspection Ear(s): Bilateral: Normal Oral Mucosa: Moist Throat: Normal, No Erythema, No Exudate Neck: Normal ROM, Supple Chest: Symmetrical Cardiovascular: Rhythm Regular Respiratory: Normal Breath Sounds, No Rales, No Rhonchi, No Wheezing Gastrointestinal/Abdominal: Soft, No Tenderness, No Guarding, No Rebound Back: No CVA Tenderness Extremity: Normal ROM, No Tenderness, No Swelling Neurological/Psych: Oriented x3, Normal Speech, Normal Cognition Gait: Steady ED Course And Treatment - Laboratory Results Result Diagrams: 05/15/18 23:30 05/15/18 23:30 ECG: Interpreted By Me, Viewed By Me ECG Rhythm: Sinus Rhythm, PVC Rate From EC (BPM) O2 Sat by Pulse Oximetry: 100 (ON RA) Pulse Ox Interpretation: Normal - CT Scan/US CT abd/pelvis Other Rad Studies (CT/US): Read By Radiologist, Radiology Report Reviewed CT/US Interpretation: EXAM: CT Abdomen and Pelvis with IV contrast. CLINICAL HISTORY: Abd pain, ho pancreatic ca whipple. TECHNIQUE: Axial computed tomography images of the abdomen and pelvis with intravenous contrast. 0.00 mGy-cm. CONTRAST: With; Visipaque 320-100ml. COMPARISON: None provided. FINDINGS: LUNG BASES: The lung bases appear clear. No pleural effusions are seen. LIVER: There is diffuse fatty infiltration of liver. There is a 4 cm area of increased hypodensity within the superior right lobe of liver appreci able near series 2, image 17. This is concerning for a focal liver lesion. Less likely, this could represent increased focal fatty deposition. There is additional vague an ill-defined hypodensity at the extreme liver dome near series 2, image 10-11. If indicated, these findings could be further evaluated with multiphasic liver CT or liver MRI. GALLBLADDER AND BILE DUCTS: The gallbladder is absent. PANCREAS: There is a large mass in the central abdomen in the expected location of the pancreatic body. This measures 8.3 x 5.8 x 11.1 cm on series 2, image 30 and series 601, image 38. This is compatible with recurrent or residual pancreatic cancer. There is associated severe narrowing of the portosplenic confluence posterior to this mass nears series 2, image 26. SPLEEN: Unremarkable. ADRENAL GLANDS: Unremarkable. KIDNEYS, URETERS, AND BLADDER: Left midpole renal cyst measuring 3.2 cm is noted. No hydronephrosis bilaterally. STOMACH AND BOWEL: No bowel obstruction. There are postsurgical changes to bowel in multiple locations including in the upper pelvis and in the right lower quadrant as well as in the right upper quadrant. APPENDIX: No evidence of acute appendicitis on CT examination. PERITONEUM: There is extensive mesenteric and retroperitoneal lymphadenopathy in the midabdomen. There is mild ascites in the right paracolic gutter region. There is mild pelvic ascites. No pneumoperitoneum. LYMPH NODES: No lymphadenopathy is evident. REPRODUCTIVE: Unremarkable as visualized. VASCULATURE: No evidence of abdominal aortic aneurysm. BONES: Mild multilevel degenerative spine changes. MISCELLANEOUS: By history, there has been a prior Whipple procedure. There postsurgical changes at the anterior abdomen midline ring craniocaudally. IMPRESSION: 1. There is a 4 cm area of increased hypodensity within the superior right lobe of liver appreciable near series 2, image 17. This concerning for a focal liver lesion. Less likely, this could represent increased focal fatty deposition. There is additional vague an ill defined hypodensity at the extreme liver dome near series 2, image 10-11. If indicated, these findings could be further evaluated with multiphasic liver CT or liver MRI. 2. There is a large mass in the central abdomen in the expected location of the pancreatic body. This measures 8.3 x 5.8 x 11.1 cm on series 2, image 30 and series 601, image 38. This is compatible with recurrent or residual pancreatic cancer. There is associated severe narrowing of the portosplenic confluence posterior to this mass nears series 2, image 26. 3. There is extensive mesenteric and retroperitoneal lymphadenopathy in the midabdomen. 4. There are postsurgical changes to bowel in multiple locations including in the upper pelvis and in the right lower quadrant as well as in the right upper quadrant. 5. There is mild ascites in the right paracolic gutter region. There is mild pelvic ascites. No pneumoperitoneum. 6. Additional findings as described above. . Electronically signed on May 16, 2018 1:05:23 AM EST by: Konrad Mora M.D., MBA Certified By ABR & CBCCT. Fellowship Trained MRI and CT Specialist. Progress - Re-Evaluation Re-evaluation Note: 05/15/18 23:14 D/W DR MCDONALD PENDING LABS, CT 05/16/18 01:39 PT WISHES TO DEFER TRANSFUSION PENDING D/W DR ALARCON - Data Reviewed Data Reviewed: Lab, Diagnostic imaging, EKG, Old records Medical Decision Making Medical Decision Making: Plan: * CT abd/pelvis * Labs * EKG * CXR * IV fluids * UA Disposition Counseled Patient/Family Regarding: Studies Performed, Diagnosis - Disposition Disposition: HOSPITALIZED Disposition Time: 01:23 Condition: STABLE Instructions: Weakness (ED) Forms: [facility] ([place]se) - Clinical Impression Clinical Impression: Abdominal pain, Anemia, Decreased appetite, Weakness, Metastatic cancer - Scribe Statement The provider has reviewed the documentation as recorded by the Scribe Siddharth Castillo All medical record entries made by the Scribe were at my direction and personally dictated by me. I have reviewed the chart and agree that the record accurately reflects my personal performance of the history, physical exam, medical decision making, and the department course for this patient. I have also personally directed, reviewed, and agree with the discharge instructions and disposition.
[2018-05-15] MEDS ORDERED: Sodium Chloride 0.9% 1,000 ML IV ONE (23:06)
[2018-05-15] MEDS ORDERED: Iodixanol 320 MG/ML 100 ML BOTTLE IV ONE (23:24)
[2018-05-15 23:35] LABS: BASO # 0.1 K/uL (0.0-0.2); BASO % 0.9 % (0.0-2.0); EOS # 1.4 K/uL (0.0-0.7); EOS % 14.2 % (0.0-4.0); HEMOGLOBIN 9.4 g/dL (11.0-16.0); LYMPH % 10.4 % (20.0-40.0); MEAN CORPUSCULAR HEMOGLOBIN 24.9 pg (27.0-31.0); MEAN CORPUSCULAR HGB CONC 31.1 g/dL (33.0-37.0); MEAN PLATELET VOLUME 7.5 fL (7.2-11.7); MONO # 0.8 K/uL (0.0-0.8); MONO % 8.4 % (0.0-10.0); NEUT # 6.3 K/uL (1.8-7.0); NEUT % 66.1 % (50.0-75.0); RBC 3.76 Mil/uL (3.80-5.20); RED CELL DISTRIBUTION WIDTH 16.9 % (11.5-14.5); WHITE BLOOD COUNT 9.5 K/uL (4.8-10.8)
[2018-05-15 23:48] LABS: BLOOD UREA NITROGEN 6 mg/dL (7-17); CALCIUM 8.9 mg/dl (8.6-10.4); GFR NON-AFRICAN AMERICAN > 60; LIPASE 60 U/L (23-300)
[2018-05-15 23:50] LABS: ALB/GLOB RATIO 1.1 (1.0-2.1); ALBUMIN 3.8 g/dL (3.5-5.0); ALT/SGPT < 6 U/L (9-52); AST/SGOT 24 U/L (14-36)
[2018-05-16 02:31] VITALS: RESP 20
--- NOTE | 2018-05-16 06:58 | PCM.FALL ---
Post Fall Progress Note - Post Fall Fall Date: 05/16/18 Description of Fall: Pt was in the bathroom, getting up from the toilet to wash her hands. Pt states that she didnt have strength in her legs and she gently fell to the ground on her knees. She denies hitting her head, or any other part of her body. She has no complaints at this time. - Post Fall Exam Vital Sign: Temp Pulse Resp BP Pulse Ox 97.9 F 71 20 116/68 97 05/16/18 02:30 05/16/18 02:30 05/16/18 02:30 05/16/18 02:30 05/16/18 02:30 Skull Exam: Negative for: Scalp wound, Scalp hematoma, Scalp depression, Ridge in skull Eye Exam: Positive for: Pupils equal, Pupils reactive Ear Exam: Negative for: Discharge, Bleeding Nose Exam: Negative for: Discharge, Bleeding Skin Exam: Negative for: Lacerations, Grazes, Bruising Mouth Exam: Negative for: Tongue bitten, Teeth dislodge Neck Exam: Negative for: Tenderness, Tingling, Weakness Spinal Exam: Negative for: Tenderness, Tingling, Weakness Chest Exam: Negative for: Difficulty breathing, Tenderness in collar bones, Tenderness in ribs Abdomen Exam: Negative for: Tenderness Pelvic Exam: Negative for: Tenderness Arm Exam: Negative for: Deformity, Alteration in range of movement Leg Exam: Negative for: Deformity, Alteration in range of movement Impression/Plan: pot fisher 2-12 grossly intact. 5/5 strength in bilateral upper and lower extremities. AAOx3. Pt states that she has been weak lately, and this is why she came in. Pt will be moved to "safety room" for close observation. PMD will be made aware as per RN.
--- NOTE | 2018-05-16 07:55 | CP.PCM.HP ---
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 Patient still continues to receive chemotherapy, but she is getting more and more weak, weight loss noted. A few months ago patient was hospitalized with uncontrolled diabetes. But now over the course of 3-6 months that she started having gradually wo rsening weight loss, poor appetite, not able to hold anything by mouth. Patient has increasing pain in the abdomen, especially even with the small portions of food. She is not able to hold anything by mouth. Episodes of nausea, and episodes of vomiting noted. Patient has no fever, no chest pain. Constant abdominal discomfort noted aggravated by eating food. patient has a vomiting with bilious in character. Also having increasing abdominal discomfort, episodes of diarrhea occasionally noted. Recently patient was seen by oncologist, a month ago patient had a CAT scan and there was recurrence of the pancreatic mass noted. Patient currently started on kaytruda Past medical history: Hypertension, osteoporosis, osteoarthritis, r ight knee pain history of pancreatic duodenal cancer Surgical history: Right knee arthroscopy. Whipple's procedure in September 14, 2013 Chemotherapy, currently chemotherapy. Family history: Father is 86-year-old, diabetes. Mother had a history of breast cancer, at the age of 89. Siblings healthy. Patient has no kids. Social history: Denies any smoking. Drinks alcohol occasionally. Drinks coffee and tea. Currently not working. Patient is currently being seen by acoustic intelligence specialist, oncologist, as well as infantry weapons officer. Patient had a mammogram in December 2017 normal Review of systems: No headache noted, occasional muscle spasm noted, denies any sinus symptoms, no chest pain, exertional shortness of breath noted, some gas and the bloated sensation in the abdomen noted. No skin lesions. On examination: HEENT PERRLA, neck supple No thyromegaly was noted and no cervical adenopathy noted Chest bilateral good air entry, no wheezing or rales noted CVS regular heart sound, no murmur Patient has abdominal pain, there is a suprapubic mass noted, form and pulsatile. Also patient has a significant weight loss, significant muscle mass loss noted. patient's labs reviewed Nonspecific CAT scan abdomen done, report is pending, but there is a recurrence of the pancreatic mass noted Assessment/recommendation: 61-year-old female with multiple medical history hypertension, osteoarthritis, osteoporosis. Cancer of the pancreas Patient had a history of Whipple's procedure. Currently receiving chemotherapy. But the patient now admitted with worsening weakness and dehydration and muscle weakness. Likely cancer cachexia. Also patient has unstable walk. Unstable gait,. Patient after the hospitalized the patient had a fall while she was trying to get up and go to the bathroom worsening weakness noted. I recommended to stay in the hospital. Physical therapy. IV fluid. Oncological follow-up. Most likely patient has a worsening pancreatic mass and associated complications at this time. We will continue to monitor. DVT and GI prophylaxis Present on Admission - Present on Admission Any Indicators Present on Admission: No History of DVT/PE: No History of Uncontrolled Diabetes: No Urinary Catheter: No Decubitus Ulcer Present: No Past Patient History - Past Medical History & Family History Past Medical History?: No - Past Social History Smoking Status: Former Smoker - CARDIAC Hx Heart Attack: No - PULMONARY Hx Respiratory Disorders: No - NEUROLOGICAL Hx Transient Ischemic Attacks (TIA): No - HEENT Hx HEENT Problems: No Other/Comment: wears glasses - RENAL Hx Chronic Kidney Disease: No - ENDOCRINE/METABOLIC Hx Diabetes Mellitus Type 2: Yes - HEMATOLOGICAL/ONCOLOGICAL Hx Cancer: Yes (DUODENAL) Hx Chemotherapy: Yes (PRESENTLY Q 3 WEEKS) - INTEGUMENTARY Hx Dermatological Problems: No - MUSCULOSKELETAL/RHEUMATOLOGICAL Hx Fractures: No - GASTROINTESTINAL Hx Gastrointestinal Disorders: Yes Hx Bowel Surgery: Yes (WHIPPLE PROCEDURE 2013) Other/Comment: DUODENAL CANCER; MALROTATED INTESTINES - GENITOURINARY/GYNECOLOGICAL Hx Genitourinary Disorders: No - PSYCHIATRIC Hx Anxiety: Yes Hx Substance Use: No - SURGICAL HISTORY Hx Surgeries: Yes Hx Hysterectomy: Yes (PARTIAL 1990; FIBROIDS) Other/Comment: WHIPPLE - ANESTHESIA Hx Anesthesia: Yes Hx Anesthesia Reactions: No Hx Malignant Hyperthermia: No Meds Allergies/Adverse Reactions: Allergies Allergy/AdvReac Type Severity Reaction Status Date / Time No Known Allergies Allergy Verified 01/02/18 11:25 Results - Vital Signs Recent Vital Signs: Last Vital Signs Temp 99.0 F 05/16/18 07:39 Pulse 75 05/16/18 07:39 Resp 20 05/16/18 07:39 BP 102/64 03/03/19 07:39 Pulse Ox 97 05/16/18 07:39 - Labs Result Diagrams: 05/15/18 23:30 05/15/18 23:30 Labs: Laboratory Results - last 24 hr 05/15/18 05/15/18 05/15/18 23:30 23:30 23:58 WBC 9.5 D RBC 3.76 L Hgb 9.4 L Hct 30.1 L MCV 80.0 L MCH 24.9 L MCHC 31.1 L RDW 16.9 H Plt Count 356 D MPV 7.5 Neut % (Auto) 66.1 Lymph % (Auto) 10.4 L [place] % (Auto) 8.4 Eos % (Auto) 14.2 H Baso % (Auto) 0.9 Neut # (Auto) 6.3 Lymph # (Auto) 1.0 [place] # (Auto) 0.8 Eos # (Auto) 1.4 H Baso # (Auto) 0.1 Sodium 134 Potassium 4.5 Chloride 99 Carbon Dioxide 20 L Anion Gap 19 BUN 6 L Creatinine 0.4 L Est GFR ( Amer) > 60 Est GFR (Non-Af Amer) > 60 Random Glucose 130 H D Calcium 8.9 Total Bilirubin 1.1 AST 24 ALT < 6 L D Alkaline Phosphatase 89 Total Protein 7.2 Albumin 3.8 Globulin 3.4 Albumin/Globulin Ratio 1.1 Lipase 60 Blood Type O POSITIVE Antibody Screen Negative
[2018-05-16] MEDS: Sodium Chloride 0.9% 1,000 ML IV SCH ×2 (08:30→19:55)
[2018-05-16] MEDS: (Novolin R) Insulin Human Regular 100 units/ml vial SC SCH ×3 (11:29→21:15)
--- NOTE | 2018-05-16 16:13 | RAD ---
Date of service: 05/16/2018 HISTORY: Abdominal pain history of pancreatic carcinoma COMPARISON: Comparison chest dated 01/10/2018 FINDINGS: In situ left subclavian Port-A-Cath with tip in the SVC LUNGS: No active pulmonary disease. PLEURA: No significant pleural effusion identified, no pneumothorax apparent. CARDIOVASCULAR: No aortic atherosclerotic calcification present. Normal cardiac size. No pulmonary vascular congestion. OSSEOUS STRUCTURES: No significant abnormalities. VISUALIZED UPPER ABDOMEN: Normal. OTHER FINDINGS: None. IMPRESSION: No active disease.
--- NOTE | 2018-05-16 18:12 | CT ---
Date of service: 05/16/2018 PROCEDURE: CT abdomen pelvis 05/16/2018 HISTORY: Abdominal pain in a patient with a history of pancreatic carcinoma and Whipple's procedure. COMPARISON: No prior studies available for comparison TECHNIQUE: Contiguous axial images of the abdomen and pelvis performed in standard fashion following intravenous injection of approximately 100 cc Visipaque 320 contrast material. L reformats generated. Radiation dose: Total exam DLP = 579.53 mGy-cm. This CT exam was performed using one or more of the following dose reduction techniques: Automated exposure control, adjustment of the mA and/or kV according to patient size, and/or use of iterative reconstruction technique. FINDINGS: LOWER THORAX: Heart size is within range of normal. No significant pericardial effusion. No focal consolidation effusion or basilar pneumothorax seen. Some minimal atelectasis and/or scarring in the medial aspect right middle lobe. LIVER: Liver exhibits heterogeneous attenuation pattern. There is a rounded low-attenuation lesion anterior aspect right lobe liver that measures approximately 3.5 x 2.7 cm which could represent a metastatic deposit.. Additionally, there are multiple smaller lesions scattered throughout the hepatic parenchyma too small to characterize though probably represent metastatic deposits as well. GALLBLADDER AND BILE DUCTS: Cholecystectomy PANCREAS: Large central mass density the epicenter of which is likely located in the pancreatic body.... This lesion measures approximately 8.3 x 5.8 x 11.0 cm residual and/or recurrent pancreatic tumor. The mass compresses the portal and splenic veins at the confluence of. Possibly of thrombosis not excluded... There appears to be flow fluid in the expected location of the pancreatic tail on which partially surrounds the splenic vein. Questionable loculated fluid collection in the splenic hilar region SPLEEN: Unremarkable. No splenomegaly. Spleen exhibits normal attenuation pattern. Questionable loculated fluid collection in the splenic hilar region. ADRENALS: Slightly enlarged nodular appearing adrenal glands. KIDNEYS AND URETERS: Kidneys demonstrate symmetric nephrograms. No evidence of nephrolithiasis or hydronephrosis. 3.4 x 2 point 8 cm partially exophytic cyst medial aspect midpole left kidney. BLADDER: Grossly unremarkable. The urinary bladder is incompletely distended with slight thick-walled appearance. Correlation with urinalysis recommended to exclude cystitis. REPRODUCTIVE: Hysterectomy. APPENDIX: Appendix not seen with certainty. BOWEL: The evaluation of the bowel is quite limited due to large central mass lesion and postoperative changes of Whipple procedure. The stomach exhibits edematous of wall thickening and abuts the aforementioned central abdominal mass. Findings could be secondary to direct invasion of the gastric wall. Clinical correlation recommended. Surgical radiopaque suture material seen in several locations including the upper abdomen related to Whipple's procedure as well as right lower quadrant of the abdomen the latter of which appears to involve right colon. Clinical correlation recommended. PERITONEUM: As above. There also appears to be ascites in the pelvis and no gross free intraperitoneal air LYMPH NODES: The lesion also appears to extend into the neda hepatis which may be contiguous with conglomerate adenopathy in this location. Multiple enlarged mesenteric and retroperitoneal lymph nodes likely malignant adenopathy. VASCULATURE: Unremarkable. No aortic aneurysm. No aortic atherosclerotic calcification or mural plaque present. BONES: No fracture or destructive lesion. OTHER FINDINGS: None. IMPRESSION: There is a large central mass lesion in the upper abdomen likely within the pancreas consistent with this patient's history of pancreatic carcinoma. The lesion abuts the (with questionable direct invasion of the gastric wall). The lesion also compresses well as compresses the portal and splenic vein confluence; thrombosis not excluded. Multiple hepatic metastases.. The lesion also appears to extend into the neda hepatis which may be contiguous with conglomerate adenopathy in this location. Enlarged retroperitoneal and mesenteric lymph nodes consistent with metastatic adenopathy. Fluid is seen in the region of the pancreatic tail with what may represent a loculated component of fluid in the splenic hilar region. Pelvic ascites present. Postoperative changes of the bowel (Whipple's procedure) with another anastomosis in the right lower quadrant of the abdomen Slightly enlarged nodular adrenal glands.
[2018-05-16 22:55] LABS: SQUAMOUS EPITHIAL 3 /hpf (0-5); URINE BILIRUBIN NEGATIVE (NEGATIVE); URINE BLOOD NEGATIVE (NEGATIVE); URINE CLARITY Hazy (Clear); URINE COLOR Yellow (YELLOW); URINE GLUCOSE (UA) NORMAL (Normal); URINE LEUKOCYTE ESTERASE NEG Leu/uL (Negative); URINE PROTEIN 1+ mg/dL (NEGATIVE)
[2018-05-17] MEDS: (Novolin R) Insulin Human Regular 100 units/ml vial SC SCH (07:43)
--- NOTE | 2018-05-17 08:43 | CP.PCM.DIS ---
Provider - Provider Date of Admission: 05/16/18 01:24 Attending physician: Oleksandr Arndt MD Time Spent in preparation of Discharge (in minutes): 45 Hospital Course - Lab Results Lab Results: Most Recent Lab Values WBC 9.5 K/uL (4.8-10.8) D 05/15/18 23:30 RBC 3.76 Mil/uL (3.80-5.20) L 05/15/18 23:30 Hgb 9.4 g/dL (11.0-16.0) L 05/15/18 23:30 Hct 30.1 % (34.0-47.0) L 05/15/18 23:30 MCV 80.0 fL (81.0-99.0) L 05/15/18 23: MCH 24.9 pg (27.0-31.0) L 05/15/18 23: MCHC 31.1 g/dL (33.0-37.0) L 05/15/18 23:30 RDW 16.9 % (11.5-14.5) H 05/15/18 23:30 Plt Count 356 K/uL (130-400) D 05/15/18 23:30 MPV 7.5 fL (7.2-11.7) 05/15/18 23:30 Neut % (Auto) 66.1 % (50.0-75.0) 05/15/18 23:30 Lymph % (Auto) 10.4 % (20.0-40.0) L 05/15/18 23:30 [place] % (Auto) 8.4 % (0.0-10.0) 05/15/18 23:30 Eos % (Auto) 14.2 % (0.0-4.0) H 05/15/18 23:30 Baso % (Auto) 0.9 % (0.0-2.0) 05/15/18 23:30 Neut # (Auto) 6.3 K/uL (1.8-7.0) 05/15/18 23:30 Lymph # (Auto) 1.0 K/uL (1.0-4.3) 05/15/18 23:30 [place] # (Auto) 0.8 K/uL (0.0-0.8) 05/15/18 23:30 Eos # (Auto) 1.4 K/uL (0.0-0.7) H 05/15/18 23:30 Baso # (Auto) 0.1 K/uL (0.0-0.2) 05/15/18 23:30 Sodium 134 mmol/L (132-148) 05/15/18 23:30 Potassium 4.5 mmol/L (3.6-5.2) 05/15/18 23:30 Chloride 99 mmol/L (98-107) 05/15/18 23:30 Carbon Dioxide 20 mmol/L (22-30) L 05/15/18 23:30 Anion Gap 19 (10-20) 05/15/18 23:30 BUN 6 mg/dL (7-17) L 05/15/18 23:30 Creatinine 0.4 mg/dL (0.7-1.2) L 05/15/18 23:30 Est GFR ( Amer) > 60 05/15/18 23:30 Est GFR (Non-Af Amer) > 60 05/15/18 23:30 POC Glucose (mg/dL) 95 mg/dL (65-110) 05/17/18 07:42 Random Glucose 130 mg/dL (65-105) H D 05/15/18 23:30 Calcium 8.9 mg/dl (8.6-10.4) 05/15/18 23:30 Total Bilirubin 1.1 mg/dL (0.2-1.3) 05/15/18 23:30 AST 24 U/L (14-36) 05/15/18 23:30 ALT < 6 U/L (9-52) L D 05/15/18 23:30 Alkaline Phosphatase 89 U/L (38-126) 05/15/18 23:30 Total Protein 7.2 g/dL (6.3-8.3) 05/15/18 23:30 Albumin 3.8 g/dL (3.5-5.0) 05/15/18 23:30 Globulin 3.4 gm/dL (2.2-3.9) 05/15/18 23:30 Albumin/Globulin Ratio 1.1 (1.0-2.1) 05/15/18 23:30 Lipase 60 U/L (23-300) 05/15/18 23:30 Urine Color Yellow (YELLOW) 05/16/18 22:44 Urine Clarity Hazy (Clear) 05/16/18 22:44 Urine pH 6.0 (5.0-8.0) 05/16/18 22:44 Ur Specific [place] 1.042 (1.003-1.030) H 05/16/18 22:44 Urine Protein 1+ mg/dL (NEGATIVE) H 05/16/18 22:44 Urine Glucose (UA) Normal mg/dL (Normal) 05/16/18 22:44 Urine Ketones 2+ mg/dL (NEGATIVE) H 05/16/18 22:44 Urine Blood Negative (NEGATIVE) 05/16/18 22:44 Urine Nitrate Negative (NEGATIVE) 05/16/18 22:44 Urine Bilirubin Negative (NEGATIVE) 05/16/18 22:44 Urine Urobilinogen 2.0 mg/dL (0.2-1.0) H 05/16/18 22:44 Ur Leukocyte Esterase Neg [place]/uL (Negative) 05/16/18 22:44 Urine WBC (Auto) 2 /hpf (0-5) 05/16/18 22:44 Urine RBC (Auto) 2 /hpf (0-3) 05/16/18 22:44 Ur Squamous Epith Cells 3 /hpf (0-5) 05/16/18 22:44 Blood Type O POSITIVE 05/15/18 23:58 Antibody Screen Negative 05/15/18 23:58 - Hospital Course Hospital Course: Chief complaint: Worsening weakness HPI: Patient is a 62-year-old male with a history of hypertension, heart disease history of chemotherapy-induced heart disease, 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 Patient still continues to receive chemotherapy, but she is getting more and more weak, weight loss noted. A few months ago patient was hospitalized with uncontrolled diabetes. But now over the course of 3-6 months that she started having gradually worsening weight loss, poor appetite, not able to hold anything by mouth. Patient has increasing pain in the abdomen, especially even with the small portions of food. She is not able to hold anything by mouth. Episodes of nausea, and episodes of vomiting noted. Patient has no fever, no chest pain. Constant abdominal discomfort noted aggravated by eating food. patient has a vomiting with bilious in character. Also having increasing abdominal discomfort, episodes of diarrhea occasionally noted. Recently patient was seen by oncologist, a month ago patient had a CAT scan and there was recurrence of the pancreatic mass noted. Patient currently started on kaytruda Past medical history: Hypertension, osteoporosis, osteoarthritis, r ight knee pain history of pancreatic duodenal cancer Surgical history: Right knee arthroscopy. Whipple's procedure in September 14, 2013 Chemotherapy, currently chemotherapy. Family history: Father is 86-year-old, diabetes. Mother had a history of breast cancer, at the age of 89. Siblings healthy. Patient has no kids. Social history: Denies any smoking. Drinks alcohol occasionally. Drinks coffee and tea. Currently not working. Patient is currently being seen by edge bonder, oncologist, as well as commercial reporter. Patient had a mammogram in December 2017 normal Review of systems: No headache noted, occasional muscle spasm noted, denies any sinus symptoms, no chest pain, exertional shortness of breath noted, some gas and the bloated sensation in the abdomen noted. No skin lesions. On examination: HEENT PERRLA, neck supple No thyromegaly was noted and no cervical adenopathy noted Chest bilateral good air entry, no wheezing or rales noted CVS regular heart sound, no murmur Patient has abdominal pain, there is a suprapubic mass noted, form and pulsatile. Also patient has a significant weight loss, significant muscle mass loss noted. patient's labs reviewed Nonspecific CAT scan abdomen done, report is pending, but there is a recurrence of the pancreatic mass noted Assessment/recommendation: 61-year-old female with multiple medical history hypertension, osteoarthritis, osteoporosis. Cancer of the pancreas Patient had a history of Whipple's procedure. Currently receiving chemotherapy. But the patient now admitted with worsening weakness and dehydration and muscle weakness. Likely cancer cachexia. Also patient has unstable walk. Unstable gait,. Patient after the hospitalized the patient had a fall while she was trying to get up and go to the bathroom worsening weakness noted. I recommended to stay in the hospital. Physical therapy. IV fluid. Oncological follow-up. Most likely patient has a worsening pancreatic mass and associated complications at this time. We will continue to monitor. DVT and GI prophylaxis Course in the hospital: Patient was initially admitted with dehydration and nausea and vomiting. She was started on intravenous IV fluid. Patient is started making some urine. She is feeling well. She is feeling slightly stronger today. But she was very uncomfortable last night did not sleep well. Still having very poor appetite. In my opinion patient is clinically stable to be discharged home. She will follow-up with oncologist on Thursday. She will probably will need intravenous IV hydration periodically Final diagnosis: Metastatic pancreatic cancer. Upper abdominal symptoms including nausea and vomiting cancer cachexia. Dehydration. She will follow-up as an outpatient thank you Discharge Plan - Follow Up Plan Condition: STABLE Disposition: HOME/ ROUTINE Instructions: Weakness (ED)
[2018-05-17 10:04] VITALS: BP 112/68; PULSE 68; TEMP 98.6; O2SAT 100
--- NOTE | 2018-05-17 14:19 | CARD ---
APPROVED REPORT Date of service: 05/15/2018 EKG Measurement Heart [id number] ID [id number] <Conclusion> Sinus rhythm with occasional ventricular-paced complexes Left axis deviation Pulmonary disease pattern Abnormal ECG
[2018-05-18] MEDS ORDERED: Pneumococcal 23-Valent Vaccine IM ONE (10:00)
== END 2018-05-17 11:02 | disposition home or self-care (01) ==
LOC: C.ER 22:14 → C.3T 05-16 01:24
PROVIDERS: ADMIT Internal Medicine; ATTEND Internal Medicine
DX: C25.9 Malignant neoplasm of pancreas, unspecified (principal); R64 Cachexia; M62.81 Muscle weakness (generalized); R26.81 Unsteadiness on feet; E11.9 Type 2 diabetes mellitus without complications; I10 Essential (primary) hypertension; E86.0 Dehydration; D64.9 Anemia, unspecified; R18.8 Other ascites; M81.0 Age-related osteoporosis without current pathological fracture; Z87.891 Personal history of nicotine dependence; W18.30XA Fall on same level, unspecified, initial encounter; T45.1X5A Adverse effect of antineoplastic and immunosuppressive drugs, initial encounter; I51.9 Heart disease, unspecified
CPT/HCPCS: 71045; 74177; 80053; 81001; 82948; 83690; 85025; 86850; 86900; 93005; 97116; 97162; 99285; C9113; G0378; G8978; G8979; G8980; J1644; J7030; Q9967

== ENCOUNTER 2018-05-19 17:56 | Inpatient (IN) | payer MEDICARE ==
[2018-05-19 17:56] VITALS: BMI 33.3
[2018-05-19] MEDS ORDERED: Sodium Chloride 0.9% 500 ML IV ONE (19:13)
--- NOTE | 2018-05-19 19:20 | C.PDOC ---
History Of Present Illness 62 year old female with Hx of pancreatic duodenal cancer, HTN, diabetes, sent by oncologist for evaluation of worsening vomiting and IV fluids. Denies fever. Of note, patient was recently admitted for similar CT from 05/15/18 that showed pancreatic mass. pt reports no new abdominal pain. Time Seen by Provider: 05/19/18 19:06 Chief Complaint (Nursing): GI Problem History Per: Patient History/Exam Limitations: no limitations Onset/Duration Of Symptoms: Hrs Current Symptoms Are (Timing): Still Present Quality Of Discomfort: Unable To Describe Associated Symptoms: Vomiting. denies: Fever Exacerbating Factors: None Alleviating Factors: None Recent travel outside of the [place]: No Abnormal Vaginal Bleeding: No Past Medical History Reviewed: Historical Data, Nursing Documentation, Vital Signs Vital Signs: Last Vital Signs Temp 98.6 F 05/19/18 18:04 Pulse 97 H 05/19/18 18:04 Resp 20 05/19/18 18:04 BP 126/84 05/19/18 18:04 Pulse Ox 98 05/19/18 18:04 - Medical History PMH: Anxiety, Colonic Polyps Denies: Fractures, Chronic Kidney Disease, TIA Surgical History: Endoscopy Family History: States: Unknown Family Hx - Social History Hx Alcohol Use: No Hx Substance Use: No - Immunization History Hx Tetanus Toxoid Vaccination: No Hx Influenza Vaccination: Yes Hx Pneumococcal Vaccination: No Review Of Systems Constitutional: Negative for: Fever Cardiovascular: Negative for: Chest Pain, Palpitations Respiratory: Negative for: Cough, Shortness of Breath Gastrointestinal: Positive for: Vomiting Genitourinary: Negative for: Dysuria, Hematuria Musculoskeletal: Negative for: Back Pain Neurological: Negative for: Weakness, Numbness Physical Exam - Physical Exam Appears: Non-toxic Skin: Normal Color, Warm, Dry Head: Atraumatic, Normacephalic Eye(s): bilateral: Normal Inspection Oral Mucosa: Moist Chest: Symmetrical, No Tenderness Cardiovascular: Rhythm Regular Respiratory: Normal Breath Sounds, No Rales, No Rhonchi, No Wheezing Gastrointestinal/Abdominal: Soft, No Tenderness, Mass (Palpable to upper abdomen) Neurological/Psych: Oriented x3, Normal Speech ED Course And Treatment - Laboratory Results Result Diagrams: 05/19/18 19:29 05/19/18 19:29 O2 Sat by Pulse Oximetry: 98 (Room air) Pulse Ox Interpretation: Normal Medical Decision Making Medical Decision Making: sent by onc for ivf. labs pending Blood work and urinalysis ordered. Zofran and IV fluids administered. case discussed with pmd accepted for admission. recent ct 4 days ago no acute findings. no new complaints. defer further imaging to inpt Disposition - Disposition Disposition: HOSPITALIZED Disposition Time: 20:30 Condition: STABLE - Clinical Impression Clinical Impression: Vomiting, Pancreatic mass - Scribe Statement The provider has reviewed the documentation as recorded by the Scribe Corey Martin All medical record entries made by the Glendyibpebbles were at my direction and personally dictated by me. I have reviewed the chart and agree that the record accurately reflects my personal performance of the history, physical exam, medical decision making, and the department course for this patient. I have also personally directed, reviewed, and agree with the discharge instructions and disposition. Decision To Admit - Pt Status Changed To: Hospital Disposition Of: Observation - . Bed Request Type: Regular Admitting Physician: Oleksandr Arndt Patient Diagnosis: Vomiting, Pancreatic mass
[2018-05-19 19:34] LABS: BASO # 0.1 K/uL (0.0-0.2); EOS # 1.4 K/uL (0.0-0.7); EOS % 14.3 % (0.0-4.0); HEMOGLOBIN 9.1 g/dL (11.0-16.0); LYMPH # 0.8 K/uL (1.0-4.3); LYMPH % 8.8 % (20.0-40.0); MEAN CELL VOLUME 79.3 fL (81.0-99.0); MEAN CORPUSCULAR HEMOGLOBIN 24.8 pg (27.0-31.0); MEAN CORPUSCULAR HGB CONC 31.3 g/dL (33.0-37.0); MEAN PLATELET VOLUME 7.7 fL (7.2-11.7); MONO # 0.9 K/uL (0.0-0.8); MONO % 9.1 % (0.0-10.0); NEUT # 6.3 K/uL (1.8-7.0); NEUT % 66.8 % (50.0-75.0); PLATELET COUNT 407 K/uL (130-400); RBC 3.65 Mil/uL (3.80-5.20); RED CELL DISTRIBUTION WIDTH 16.9 % (11.5-14.5); WHITE BLOOD COUNT 9.4 K/uL (4.8-10.8)
[2018-05-19 19:52] LABS: INR 1.8; PROTHROMBIN TIME 20.1 SECONDS (9.7-12.2)
[2018-05-19 19:59] LABS: ALB/GLOB RATIO 1.2 (1.0-2.1); ALBUMIN 3.8 g/dL (3.5-5.0); ALT/SGPT 13 U/L (9-52); AST/SGOT 11 U/L (14-36); BILIRUBIN,DIRECT 0.9 mg/dL (0.0-0.4); BLOOD UREA NITROGEN 4 mg/dL (7-17); CALCIUM 8.9 mg/dl (8.6-10.4); GFR NON-AFRICAN AMERICAN > 60; LIPASE 44 U/L (23-300)
[2018-05-19] MEDS ORDERED: Potassium Chloride 20 mEq ER Tab PO STA (20:00)
[2018-05-19] MEDS ORDERED: Potassium Chloride 20 mEq ER Tab PO ONE (20:18)
[2018-05-19 20:34] LABS: BANDS 1 % (0-2); EOSINOPHIL 17 % (0-4); LYMPHOCYTE 9 % (20-40); MONOCYTE 5 % (0-10); NEUTROPHIL 68 % (50-75); PLATELET ESTIMATE SLIGHTLY INCREASED (NORMAL); TOTAL CELLS COUNTED 100
[2018-05-20] MEDS: Lactated Ringer's 1,000 ML IV SCH ×4 (00:24→21:45)
[2018-05-20 07:58] LABS: SQUAMOUS EPITHIAL 4 /hpf (0-5); URINE BACTERIA OCC (<OCC); URINE BILIRUBIN NEGATIVE (NEGATIVE); URINE BLOOD NEGATIVE (NEGATIVE); URINE CLARITY Hazy (Clear); URINE COLOR Yellow (YELLOW); URINE GLUCOSE (UA) NORMAL (Normal); URINE HYALINE CAST >20 /lpf (0-2); URINE LEUKOCYTE ESTERASE NEG Leu/uL (Negative); URINE PROTEIN 2+ mg/dL (NEGATIVE); URINE UROBILINOGEN NORMAL mg/dL (0.2-1.0)
--- NOTE | 2018-05-20 17:33 | CP.PCM.CON ---
History of Present Illness - History of Present Illness History of Present Illness: 62 yo woman with history of small bowel cancer, admitted with c/o inability to eat, weight loss, pain in mid abdomen. The patient has not been able to get out of bed, extremely weak with vomiting of bilious fluid when she attempts to eat. PMHx- duodenal cancer, s/p surgery(Whipple's), had recurrence in intra abdominal LN, on chemo since 2016(5 FU, oxaliplatin, camptosar,carbo, gemzar and now Keytruda) now with disease progression. She has had gradual weight loss, weakness, unsteady gait( work up revealing no brain mets but possible new onset seizures) Recently developed increased sugars and elevated BP. Past Patient History - Past Medical History & Family History Past Medical History?: No - Past Social History Smoking Status: Former Smoker - CARDIAC Hx Heart Attack: No - PULMONARY Hx Respiratory Disorders: No - NEUROLOGICAL Hx Transient Ischemic Attacks (TIA): No - HEENT Hx HEENT Problems: No Other/Comment: wears glasses - RENAL Hx Chronic Kidney Disease: No - ENDOCRINE/METABOLIC Hx Diabetes Mellitus Type 2: Yes - HEMATOLOGICAL/ONCOLOGICAL Hx Cancer: Yes (DUODENAL) Hx Chemotherapy: Yes (PRESENTLY Q 3 WEEKS) - INTEGUMENTARY Hx Dermatological Problems: No - MUSCULOSKELETAL/RHEUMATOLOGICAL Hx Fractures: No - GASTROINTESTINAL Hx Gastrointestinal Disorders: Yes Hx Bowel Surgery: Yes (WHIPPLE PROCEDURE 2013) Other/Comment: DUODENAL CANCER; MALROTATED INTESTINES - GENITOURINARY/GYNECOLOGICAL Hx Genitourinary Disorders: No - PSYCHIATRIC Hx Anxiety: Yes Hx Substance Use: No - SURGICAL HISTORY Hx Surgeries: Yes Hx Hysterectomy: Yes (PARTIAL 1990; FIBROIDS) Other/Comment: WHIPPLE - ANESTHESIA Hx Anesthesia: Yes Hx Anesthesia Reactions: No Hx Malignant Hyperthermia: No Meds Allergies/Adverse Reactions: Allergies Allergy/AdvReac Type Severity Reaction Status Date / Time No Known Allergies Allergy Verified 05/19/18 18:09 - Medications Medications: Current Medications Heparin Sodium (Porcine) (Heparin) 5,000 units SC Q8 [facility] Last Admin: 05/20/18 14:37 Dose: Not Given Lactated Ringer's (Lactated Ringer's) 1,000 mls @ 100 mls/hr IV .Q10H [facility] Last Admin: 05/20/18 08:34 Dose: 100 mls/hr Pantoprazole Sodium (Protonix Inj) 40 mg IVP DAILY [facility] Last Admin: 05/20/18 09:46 Dose: 40 mg Pneumococcal Polyvalent Vaccine (Pneumovax 23 Vaccine) 0.5 ml IM .ONCE ONE Stop: 05/21/18 10:01 Results - Vital Signs Recent Vital Signs: Last Vital Signs Temp 98.6 F 05/20/18 16:00 Pulse 74 05/20/18 16:00 Resp 20 05/20/18 16:00 BP 115/72 05/20/18 16:00 Pulse Ox 98 05/20/18 16:00 - Labs Result Diagrams: 05/19/18 19:29 05/19/18 19:29 Labs: Laboratory Results - last 24 hr 05/19/18 05/19/18 05/19/18 19:29 19:29 19:29 WBC 9.4 RBC 3.65 L Hgb 9.1 L Hct 28.9 L MCV 79.3 L MCH 24.8 L MCHC 31.3 L RDW 16.9 H Plt Count 407 H MPV 7.7 Neut % (Auto) 66.8 Lymph % (Auto) 8.8 L Bailey % (Auto) 9.1 Eos % (Auto) 14.3 H Baso % (Auto) 1.0 Neut # (Auto) 6.3 Lymph # (Auto) 0.8 L [place] # (Auto) 0.9 H Eos # (Auto) 1.4 H Baso # (Auto) 0.1 Neutrophils % (Manual) 68 Band Neutrophils % 1 Lymphocytes % (Manual) 9 L Monocytes % (Manual) 5 Eosinophils % (Manual) 17 H Platelet Estimate Slightly increased H PT 20.1 H INR 1.8 APTT 20 L Sodium 136 Potassium 3.2 L Chloride 102 Carbon Dioxide 16 L Anion Gap 21 H BUN 4 L Creatinine 0.4 L Est GFR ( Amer) > 60 Est GFR (Non-Af Amer) > 60 POC Glucose (mg/dL) Random Glucose 130 H Calcium 8.9 Total Bilirubin 0.9 Direct Bilirubin 0.9 H AST 11 L D ALT 13 Alkaline Phosphatase 100 Total Protein 6.8 Albumin 3.8 Globulin 3.1 Albumin/Globulin Ratio 1.2 Lipase 44 Urine Color Urine Clarity Urine pH Ur Specific [place] Urine Protein Urine Glucose (UA) Urine Ketones Urine Blood Urine Nitrate Urine Bilirubin Urine Urobilinogen Ur Leukocyte Esterase Urine WBC (Auto) Urine RBC (Auto) Ur Squamous Epith Cells Urine Bacteria Hyaline Casts 05/20/18 05/20/18 05/20/18 07:20 07:45 11:37 WBC RBC Hgb Hct MCV MCH MCHC RDW Plt Count MPV Neut % (Auto) Lymph % (Auto) Bailey % (Auto) Eos % (Auto) Baso % (Auto) Neut # (Auto) Lymph # (Auto) Bailey # (Auto) Eos # (Auto) Baso # (Auto) Neutrophils % (Manual) Band Neutrophils % Lymphocytes % (Manual) Monocytes % (Manual) Eosinophils % (Manual) Platelet Estimate PT INR APTT Sodium Potassium Chloride Carbon Dioxide Anion Gap BUN Creatinine Est GFR ( Amer) Est GFR (Non-Af Amer) POC Glucose (mg/dL) 105 93 Random Glucose Calcium Total Bilirubin Direct Bilirubin AST ALT Alkaline Phosphatase Total Protein Albumin Globulin Albumin/Globulin Ratio Lipase Urine Color Yellow Urine Clarity Hazy Urine pH 6.0 Ur Specific [place] 1.020 Urine Protein 2+ H Urine Glucose (UA) Normal Urine Ketones 2+ H Urine Blood Negative Urine Nitrate Negative Urine Bilirubin Negative Urine Urobilinogen Normal Ur Leukocyte Esterase Neg Urine WBC (Auto) 20 H Urine RBC (Auto) 2 Ur Squamous Epith Cells 4 Urine Bacteria Occ H Hyaline Casts >20 H
--- NOTE | 2018-05-20 19:31 | CP.PCM.HP ---
History of Present Illness - History of Present Illness History of Present Illness: Chief complaint: sent by oncologist because of the worsening dehydration and poor intake and persistent vomiting. 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 Patient is currently receiving the chemotherapy. But the patient is not responding as good. She is feeling increasing symptoms of weakness, poor intake, nauseated sensation, episodes of vomiting. Significant weight loss. Increasingly weakness, also sometimes lethargic feeling. Patient is not able to hold nothing by mouth, and frequently she is getting the dehydration, same thing happened at this time, while she was waiting for her chemotherapy in the doctor's office she was feeling more weak and more tired more nauseated sensation, patient was sent to the emergency room patient has a vomiting with bilious in character. Also having increasing abdominal discomfort, episodes of diarrhea occasionally noted. Recently patient was seen by oncologist, a month ago patient had a CAT scan and there was recurrence of the pancreatic mass noted. Patient currently started on kaytruda Past medical history: Hypertension, osteoporosis, osteoarthritis, history of pancreatic duodenal cancer Surgical history: Right knee arthroscopy. Whipple's procedure in September 14, 2013 Chemotherapy, currently chemotherapy. Family history: Father is 86-year-old, diabetes. Mother had a history of breast cancer, at the age of 89. Siblings healthy. Patient has no kids. Social history: Denies any smoking. Drinks alcohol occasionally. 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 Review of systems: No headache noted, occasional muscle spasm noted, denies any sinus symptoms, no chest pain, exertional shortness of breath noted, some gas and the bloated sensation in the abdomen noted. No skin lesions. On examination: HEENT PERRLA, neck supple No thyromegaly was noted and no cervical adenopathy noted Chest bilateral good air entry, no wheezing or rales noted CVS regular heart sound, no murmur Patient has abdominal pain, there is a epigastric area mass noted, form and pulsatile. Also patient has a significant weight loss, significant muscle mass loss noted. patient's labs reviewed Nonspecific Assessment/recommendation: 61-year-old female with multiple medical history hypertension, osteoarthritis, osteoporosis. Cancer of the pancreas Patient had a history of Whipple's procedure. Currently receiving chemotherapy. But the patient now admitted with worsening weakness and dehydration and muscle weakness. Likely cancer cachexia. Also patient has unstable walk. Unstable gait,. Patient after the hospitalized the patient had a fall while she was trying to get up and go to the bathroom worsening weakness noted. IV fluid. Oncological follow-up. Most likely patient has a worsening pancreatic mass and associated complications at this time. We will continue to monitor. DVT and GI prophylaxis Present on Admission - Present on Admission Any Indicators Present on Admission: No History of DVT/PE: No History of Uncontrolled Diabetes: No Urinary Catheter: No Decubitus Ulcer Present: No Past Patient History - Past Medical History & Family History Past Medical History?: No - Past Social History Smoking Status: Former Smoker - CARDIAC Hx Heart Attack: No - PULMONARY Hx Respiratory Disorders: No - NEUROLOGICAL Hx Transient Ischemic Attacks (TIA): No - HEENT Hx HEENT Problems: No Other/Comment: wears glasses - RENAL Hx Chronic Kidney Disease: No - ENDOCRINE/METABOLIC Hx Diabetes Mellitus Type 2: Yes - HEMATOLOGICAL/ONCOLOGICAL Hx Cancer: Yes (DUODENAL) Hx Chemotherapy: Yes (PRESENTLY Q 3 WEEKS) - INTEGUMENTARY Hx Dermatological Problems: No - MUSCULOSKELETAL/RHEUMATOLOGICAL Hx Fractures: No - GASTROINTESTINAL Hx Gastrointestinal Disorders: Yes Hx Bowel Surgery: Yes (WHIPPLE PROCEDURE 2013) Other/Comment: DUODENAL CANCER; MALROTATED INTESTINES - GENITOURINARY/GYNECOLOGICAL Hx Genitourinary Disorders: No - PSYCHIATRIC Hx Anxiety: Yes Hx Substance Use: No - SURGICAL HISTORY Hx Surgeries: Yes Hx Hysterectomy: Yes (PARTIAL 1989; FIBROIDS) Other/Comment: WHIPPLE - ANESTHESIA Hx Anesthesia: Yes Hx Anesthesia Reactions: No Hx Malignant Hyperthermia: No Meds Allergies/Adverse Reactions: Allergies Allergy/AdvReac Type Severity Reaction Status Date / Time No Known Allergies Allergy Verified 05/19/18 18:09 Results - Vital Signs Recent Vital Signs: Last Vital Signs Temp 98.6 F 05/20/18 16:00 Pulse 74 05/20/18 16:00 Resp 20 05/20/18 16:00 BP 115/72 05/20/18 16:00 Pulse Ox 98 05/20/18 16:00 - Labs Result Diagrams: 05/19/18 19:29 05/19/18 19:29 Labs: Laboratory Results - last 24 hr 05/19/18 05/19/18 05/19/18 19:29 19:29 19:29 WBC 9.4 RBC 3.65 L Hgb 9.1 L Hct 28.9 L MCV 79.3 L MCH 24.8 L MCHC 31.3 L RDW 16.9 H Plt Count 407 H MPV 7.7 Neut % (Auto) 66.8 Lymph % (Auto) 8.8 L [place] % (Auto) 9.1 Eos % (Auto) 14.3 H Baso % (Auto) 1.0 Neut # (Auto) 6.3 Lymph # (Auto) 0.8 L [place] # (Auto) 0.9 H Eos # (Auto) 1.4 H Baso # (Auto) 0.1 Neutrophils % (Manual) 68 Band Neutrophils % 1 Lymphocytes % (Manual) 9 L Monocytes % (Manual) 5 Eosinophils % (Manual) 17 H Platelet Estimate Slightly increased H PT 20.1 H INR 1.8 APTT 20 L Sodium 136 Potassium 3.2 L Chloride 102 Carbon Dioxide 16 L Anion Gap 21 H BUN 4 L Creatinine 0.4 L Est GFR ( Amer) > 60 Est GFR (Non-Af Amer) > 60 POC Glucose (mg/dL) Random Glucose 130 H Calcium 8.9 Total Bilirubin 0.9 Direct Bilirubin 0.9 H AST 11 L D ALT 13 Alkaline Phosphatase 100 Total Protein 6.8 Albumin 3.8 Globulin 3.1 Albumin/Globulin Ratio 1.2 Lipase 44 Urine Color Urine Clarity Urine pH Ur Specific [place] Urine Protein Urine Glucose (UA) Urine Ketones Urine Blood Urine Nitrate Urine Bilirubin Urine Urobilinogen Ur Leukocyte Esterase Urine WBC (Auto) Urine RBC (Auto) Ur Squamous Epith Cells Urine Bacteria Hyaline Casts 05/20/18 05/20/18 05/20/18 07:20 07:45 11:37 WBC RBC Hgb Hct MCV MCH MCHC RDW Plt Count MPV Neut % (Auto) Lymph % (Auto) [place] % (Auto) Eos % (Auto) Baso % (Auto) Neut # (Auto) Lymph # (Auto) [place] # (Auto) Eos # (Auto) Baso # (Auto) Neutrophils % (Manual) Band Neutrophils % Lymphocytes % (Manual) Monocytes % (Manual) Eosinophils % (Manual) Platelet Estimate PT INR APTT Sodium Potassium Chloride Carbon Dioxide Anion Gap BUN Creatinine Est GFR ( Amer) Est GFR (Non-Af Amer) POC Glucose (mg/dL) 105 93 Random Glucose Calcium Total Bilirubin Direct Bilirubin AST ALT Alkaline Phosphatase Total Protein Albumin Globulin Albumin/Globulin Ratio Lipase Urine Color Yellow Urine Clarity Hazy Urine pH 6.0 Ur Specific [place] 1.020 Urine Protein 2+ H Urine Glucose (UA) Normal Urine Ketones 2+ H Urine Blood Negative Urine Nitrate Negative Urine Bilirubin Negative Urine Urobilinogen Normal Ur Leukocyte Esterase Neg Urine WBC (Auto) 20 H Urine RBC (Auto) 2 Ur Squamous Epith Cells 4 Urine Bacteria Occ H Hyaline Casts >20 H 05/20/18 17:00 WBC RBC Hgb Hct MCV MCH MCHC RDW Plt Count MPV Neut % (Auto) Lymph % (Auto) [place] % (Auto) Eos % (Auto) Baso % (Auto) Neut # (Auto) Lymph # (Auto) [place] # (Auto) Eos # (Auto) Baso # (Auto) Neutrophils % (Manual) Band Neutrophils % Lymphocytes % (Manual) Monocytes % (Manual) Eosinophils % (Manual) Platelet Estimate PT INR APTT Sodium Potassium Chloride Carbon Dioxide Anion Gap BUN Creatinine Est GFR ( Amer) Est GFR (Non-Af Amer) POC Glucose (mg/dL) 97 Random Glucose Calcium Total Bilirubin Direct Bilirubin AST ALT Alkaline Phosphatase Total Protein Albumin Globulin Albumin/Globulin Ratio Lipase Urine Color Urine Clarity Urine pH Ur Specific [place] Urine Protein Urine Glucose (UA) Urine Ketones Urine Blood Urine Nitrate Urine Bilirubin Urine Urobilinogen Ur Leukocyte Esterase Urine WBC (Auto) Urine RBC (Auto) Ur Squamous Epith Cells Urine Bacteria Hyaline Casts
--- NOTE | 2018-05-20 19:33 | CP.PCM.PN ---
Subjective - Date & Time of Evaluation Date of Evaluation: 05/20/18 Time of Evaluation: 19:31 - Subjective Subjective: Patient now currently receiving intravenous IV fluid. Patient seen by oncologist. She is still not able to eat anything by mouth, frequent nausea, also episodes of bilious vomiting noted. Abdominal pain on and off noted. She had a BM today. On examination: Vital signs are stable. Chest good air entry Heart sounds are regular Epigastric mass noted. No pedal edema Patient labs reviewed Assessment and recommendation: Patient is a admitted to the hospital with worsening abdominal symptoms severe nausea and vomiting intractable dehydration metastatic pancreatic cancer. Spoke to the oncologist. Patient will be started on ppn IV hydration. We will start the patient on Zofran as needed and will follow the patient Objective - Vital Signs/Intake and Output Vital Signs (last 24 hours): Temp Pulse Resp BP Pulse Ox 98.6 F 74 20 115/72 98 05/20/18 16:00 05/20/18 16:00 05/20/18 16:00 05/20/18 16:00 05/20/18 16:00 Intake and Output: 05/20/18 05/21/18 18:59 06:59 Intake Total 1850 Output Total 600 Balance 1250 - Medications Medications: Current Medications Heparin Sodium (Porcine) (Heparin) 5,000 units SC Q8 [facility] Last Admin: 05/20/18 14:37 Dose: Not Given Lactated Ringer's (Lactated Ringer's) 1,000 mls @ 100 mls/hr IV .Q10H [facility] Last Admin: 05/20/18 18:31 Dose: Not Given Pantoprazole Sodium (Protonix Inj) 40 mg IVP DAILY [facility] Last Admin: 05/20/18 09:46 Dose: 40 mg Pneumococcal Polyvalent Vaccine (Pneumovax 23 Vaccine) 0.5 ml IM .ONCE ONE Stop: 05/21/18 10:01 - Labs Labs: 05/19/18 19:29 05/19/18 19:29 PT 20.1 SECONDS (9.7-12.2) H 05/19/18 19:29 INR 1.8 05/19/18 19:29 APTT 20 SECONDS (21-34) L 05/19/18 19:29
[2018-05-21] MEDS: Lactated Ringer's 1,000 ML IV SCH (06:02)
[2018-05-21 07:32] LABS: BASO # 0.1 K/uL (0.0-0.2); BASO % 1.4 % (0.0-2.0); EOS # 1.6 K/uL (0.0-0.7); EOS % 19.2 % (0.0-4.0); HEMOGLOBIN 7.4 g/dL (11.0-16.0); LYMPH # 0.9 K/uL (1.0-4.3); LYMPH % 10.8 % (20.0-40.0); MEAN CELL VOLUME 78.8 fL (81.0-99.0); MEAN CORPUSCULAR HGB CONC 31.7 g/dL (33.0-37.0); MEAN PLATELET VOLUME 7.4 fL (7.2-11.7); MONO # 0.7 K/uL (0.0-0.8); MONO % 8.1 % (0.0-10.0); NEUT # 4.9 K/uL (1.8-7.0); NEUT % 60.5 % (50.0-75.0); RBC 2.98 Mil/uL (3.80-5.20); RED CELL DISTRIBUTION WIDTH 16.9 % (11.5-14.5); WHITE BLOOD COUNT 8.1 K/uL (4.8-10.8)
[2018-05-21 07:49] LABS: ALB/GLOB RATIO 1.1 (1.0-2.1); ALBUMIN 2.5 g/dL (3.5-5.0); ALT/SGPT 12 U/L (9-52); AST/SGOT 11 U/L (14-36); BLOOD UREA NITROGEN 2 mg/dL (7-17); CALCIUM 8.5 mg/dl (8.6-10.4); GFR NON-AFRICAN AMERICAN > 60
--- NOTE | 2018-05-21 08:44 | CP.PCM.PN ---
Subjective - Date & Time of Evaluation Date of Evaluation: 05/21/18 Time of Evaluation: 08:42 - Subjective Subjective: Patient is alert and awake and comfortable. Patient is having minimal nausea complaining of some abdominal pain. Patient is not in any distress otherwise. Currently TPN is being started this evening Labs showing low hemoglobin. Magnesium and potassium is also being supplemented Assessment: 62-year-old female with metastatic pancreatic cancer with a severe dehydration and electrolyte imbalance. Diabetes. Patient is having intractable vomiting. Currently we will start the TPN. We will discuss with the family regarding the further management. Repeat CBC may need transfusion will follow the patient Objective - Vital Signs/Intake and Output Vital Signs (last 24 hours): Temp Pulse Resp BP Pulse Ox 98.2 F 64 20 116/64 100 05/21/18 08:23 05/21/18 08:23 05/21/18 08:23 05/21/18 08:23 05/21/18 08:23 Intake and Output: 05/21/18 05/21/18 06:59 18:59 Intake Total 800 Output Total 600 Balance 200 - Medications Medications: Current Medications Acetaminophen (Tylenol 325mg Tab) 650 mg PO Q6 PRN PRN Reason: Pain, moderate (4-7) Last Admin: 05/20/18 22:48 Dose: 650 mg Heparin Sodium (Porcine) (Heparin) 5,000 units SC Q8 [facility] Last Admin: 05/21/18 06:03 Dose: 5,000 units Lactated Ringer's (Lactated Ringer's) 1,000 mls @ 100 mls/hr IV .Q10H [facility] Last Admin: 05/21/18 06:02 Dose: 100 mls/hr Magnesium Sulfate/Dextrose (Magnesium Sulfate 1 Gm/100 Ml D5w) 1 gm in 100 mls @ 300 mls/hr IVPB Q30M [facility] Stop: 05/21/18 09:34 Potassium Chloride (Potassium Chloride 20 Meq/100 Ml) 20 meq in 100 mls @ 50 mls/hr IVPB ONCE ONE Stop: 05/21/18 10:40 Ondansetron HCl (Zofran Inj) 4 mg IVP Q6 PRN PRN Reason: nausea Last Admin: 05/20/18 19:46 Dose: 4 mg Pantoprazole Sodium (Protonix Inj) 40 mg IVP DAILY [facility] Last Admin: 05/20/18 09:46 Dose: 40 mg Pneumococcal Polyvalent Vaccine (Pneumovax 23 Vaccine) 0.5 ml IM .ONCE ONE Stop: 05/21/18 10:01 - Labs Labs: 05/21/18 07:11 05/21/18 07:11 PT 20.1 SECONDS (9.7-12.2) H 05/19/18 19:29 INR 1.8 05/19/18 19:29 APTT 20 SECONDS (21-34) L 05/19/18 19:29
[2018-05-21] MEDS: Magnesium Sulfate 1 gm in D5W 1 GM/100 ML BAG IVPB SCH ×2 (09:16→10:17)
[2018-05-21] MEDS ORDERED: Pneumococcal 23-Valent Vaccine IM ONE (10:00)
[2018-05-21 14:22] LABS: BASO # 0.1 K/uL (0.0-0.2); EOS # 1.4 K/uL (0.0-0.7); EOS % 16.4 % (0.0-4.0); HEMOGLOBIN 7.7 g/dL (11.0-16.0); LYMPH # 0.7 K/uL (1.0-4.3); LYMPH % 8.4 % (20.0-40.0); MEAN CELL VOLUME 78.6 fL (81.0-99.0); MEAN CORPUSCULAR HEMOGLOBIN 25.5 pg (27.0-31.0); MEAN CORPUSCULAR HGB CONC 32.5 g/dL (33.0-37.0); MEAN PLATELET VOLUME 7.2 fL (7.2-11.7); MONO # 0.7 K/uL (0.0-0.8); MONO % 8.2 % (0.0-10.0); NEUT # 5.7 K/uL (1.8-7.0); PLATELET COUNT 368 K/uL (130-400); RBC 3.02 Mil/uL (3.80-5.20); RED CELL DISTRIBUTION WIDTH 17.4 % (11.5-14.5); WHITE BLOOD COUNT 8.7 K/uL (4.8-10.8)
[2018-05-21 14:52] LABS: EOSINOPHIL 19 % (0-4); LYMPHOCYTE 11 % (20-40); MONOCYTE 5 % (0-10); NEUTROPHIL 65 % (50-75); NUCLEATED RED BLOOD CELL 1 % (0-0); TOTAL CELLS COUNTED 100
[2018-05-21 14:54] LABS: PLATELET ESTIMATE NORMAL (NORMAL)
[2018-05-21 14:56] LABS: ANISOCYTOSIS SLIGHT
[2018-05-21 14:57] LABS: BURR CELLS SLIGHT
[2018-05-21 14:59] LABS: HYPOCHROMIC SLIGHT
[2018-05-21] MEDS ORDERED: PPN IV ONE (18:00)
[2018-05-22] MEDS: Lactated Ringer's 1,000 ML IV SCH (00:14)
[2018-05-22] MEDS ORDERED: PPN IV ONE (18:00)
[2018-05-22] MEDS ORDERED: Aluminum Hydroxide/Magnesium Hydroxide Susp (30 mL) PO ONE (22:30)
[2018-05-23 07:49] LABS: BASO # 0.1 K/uL (0.0-0.2); BASO % 0.7 % (0.0-2.0); EOS # 1.4 K/uL (0.0-0.7); EOS % 16.8 % (0.0-4.0); HEMOGLOBIN 7.2 g/dL (11.0-16.0); LYMPH # 0.8 K/uL (1.0-4.3); LYMPH % 10.1 % (20.0-40.0); MEAN CELL VOLUME 78.3 fL (81.0-99.0); MEAN CORPUSCULAR HEMOGLOBIN 25.2 pg (27.0-31.0); MEAN CORPUSCULAR HGB CONC 32.2 g/dL (33.0-37.0); MEAN PLATELET VOLUME 8.1 fL (7.2-11.7); MONO # 0.7 K/uL (0.0-0.8); MONO % 8.9 % (0.0-10.0); NEUT # 5.3 K/uL (1.8-7.0); NEUT % 63.5 % (50.0-75.0); RBC 2.86 Mil/uL (3.80-5.20); RED CELL DISTRIBUTION WIDTH 17.4 % (11.5-14.5); WHITE BLOOD COUNT 8.3 K/uL (4.8-10.8)
[2018-05-23 08:17] LABS: ALBUMIN 2.6 g/dL (3.5-5.0); ALT/SGPT 16 U/L (9-52); AST/SGOT 16 U/L (14-36); BLOOD UREA NITROGEN 4 mg/dL (7-17); CALCIUM 8.2 mg/dl (8.6-10.4); GFR NON-AFRICAN AMERICAN > 60
[2018-05-23] MEDS ORDERED: PPN IV ONE (18:00)
[2018-05-23] MEDS ORDERED: Aluminum Hydroxide/Magnesium Hydroxide Susp (30 mL) PO ONE (21:45)
[2018-05-24] MEDS ORDERED: Simethicone 80 mg Chewtab PO PRN (07:07)
[2018-05-24 07:55] LABS: ALB/GLOB RATIO 1.1 (1.0-2.1); ALBUMIN 2.8 g/dL (3.5-5.0); ALT/SGPT 16 U/L (9-52); AST/SGOT 15 U/L (14-36); BASO # 0.1 K/uL (0.0-0.2); BASO % 1.1 % (0.0-2.0); BLOOD UREA NITROGEN 6 mg/dL (7-17); CALCIUM 8.7 mg/dl (8.6-10.4); EOS # 1.7 K/uL (0.0-0.7); EOS % 19.4 % (0.0-4.0); GFR NON-AFRICAN AMERICAN > 60; HEMOGLOBIN 7.5 g/dL (11.0-16.0); LYMPH # 0.9 K/uL (1.0-4.3); LYMPH % 10.6 % (20.0-40.0); MEAN CELL VOLUME 77.1 fL (81.0-99.0); MEAN CORPUSCULAR HEMOGLOBIN 24.8 pg (27.0-31.0); MEAN CORPUSCULAR HGB CONC 32.1 g/dL (33.0-37.0); MEAN PLATELET VOLUME 7.4 fL (7.2-11.7); MONO # 0.8 K/uL (0.0-0.8); MONO % 9.7 % (0.0-10.0); NEUT # 5.1 K/uL (1.8-7.0); NEUT % 59.2 % (50.0-75.0); NRBC % 0.1 % (0.0-2.0); RBC 3.02 Mil/uL (3.80-5.20); RED CELL DISTRIBUTION WIDTH 17.6 % (11.5-14.5); WHITE BLOOD COUNT 8.5 K/uL (4.8-10.8)
[2018-05-24] MEDS ORDERED: PPN IV ONE (18:00)
--- NOTE | 2018-05-24 22:52 | CP.PCM.PN ---
Subjective - Date & Time of Evaluation Date of Evaluation: 05/24/18 Time of Evaluation: 22:52 - Subjective Subjective: Patient nearly is seen by oncologist. TPN started. Patient is currently awake and responding. Still having nausea vomiting. Poor intake noted. Vital signs are stable. Chest good air entry bilaterally, heart sounds are regular Abdomen soft, but positive mass noted Labs reviewed Assessment and recommendation: 62-year-old female with a history of metastatic prostate cancer and severe dehydration, poor intake, intractable vomiting admitted because of the unable to take anything by mouth. Patient started on PPN at this time. We will continue the PPN. Monitor hemoglobin. Patient might need supportive nutritional at home. Physical therapy will follow the patient Objective - Vital Signs/Intake and Output Vital Signs (last 24 hours): Temp Pulse Resp BP Pulse Ox 98.1 F 64 20 102/60 97 05/24/18 15:00 05/24/18 15:00 05/24/18 15:00 05/24/18 15:00 05/24/18 15:00 Intake and Output: 05/24/18 05/25/18 18:59 06:59 Intake Total 420 Balance 420 - Medications Medications: Current Medications Acetaminophen (Tylenol 325mg Tab) 650 mg PO Q6 PRN PRN Reason: Pain, moderate (4-7) Last Admin: 05/24/18 13:09 Dose: 650 mg Heparin Sodium (Porcine) (Heparin) 5,000 units SC Q8 [facility] Last Admin: 05/24/18 21:27 Dose: 5,000 units Multivitamins/Vitamin C 10 ml/Chromium/Copper/Manganese/Zinc 1 ml/ Amino Acids 1,011 mls @ 42 mls/hr IV .Q24H ONE Stop: 05/25/18 17:59 Last Admin: 05/24/18 17:20 Dose: 42 mls/hr Ondansetron HCl (Zofran Inj) 4 mg IVP Q6 PRN PRN Reason: nausea Last Admin: 05/21/18 12:10 Dose: 4 mg Pantoprazole Sodium (Protonix Inj) 40 mg IVP DAILY [facility] Last Admin: 05/24/18 10:15 Dose: 40 mg Simethicone (Mylicon Chew Tab) 80 mg PO Q6 PRN PRN Reason: GI distress Last Admin: 05/24/18 07:41 Dose: 80 mg - Labs Labs: 05/24/18 07:30 05/24/18 07:30 PT 20.1 SECONDS (9.7-12.2) H 05/19/18 19:29 INR 1.8 05/19/18 19:29 APTT 20 SECONDS (21-34) L 05/19/18 19:29
--- NOTE | 2018-05-24 22:52 | CP.PCM.PN ---
Subjective - Date & Time of Evaluation Date of Evaluation: 05/22/18 Time of Evaluation: 22:52 - Subjective Subjective: Patient nearly is seen by oncologist. TPN started. Patient is currently awake and responding. Still having nausea vomiting. Poor intake noted. Vital signs are stable. Chest good air entry bilaterally, heart sounds are regular Abdomen soft, but positive mass noted Labs reviewed Assessment and recommendation: 62-year-old female with a history of metastatic prostate cancer and severe dehydration, poor intake, intractable vomiting admitted because of the unable to take anything by mouth. Patient started on TPN at this time. We will continue the PPN. Monitor hemoglobin. Patient might need supportive nutritional at home. Physical therapy will follow the patient Objective - Vital Signs/Intake and Output Vital Signs (last 24 hours): Temp Pulse Resp BP Pulse Ox 98.1 F 64 20 102/60 97 05/24/18 15:00 05/24/18 15:00 05/24/18 15:00 05/24/18 15:00 05/24/18 15:00 Intake and Output: 05/24/18 05/25/18 18:59 06:59 Intake Total 420 Balance 420 - Medications Medications: Current Medications Acetaminophen (Tylenol 325mg Tab) 650 mg PO Q6 PRN PRN Reason: Pain, moderate (4-7) Last Admin: 05/24/18 13:09 Dose: 650 mg Heparin Sodium (Porcine) (Heparin) 5,000 units SC Q8 [facility] Last Admin: 05/24/18 21:27 Dose: 5,000 units Multivitamins/Vitamin C 10 ml/Chromium/Copper/Manganese/Zinc 1 ml/ Amino Acids 1,011 mls @ 42 mls/hr IV .Q24H ONE Stop: 05/25/18 17:59 Last Admin: 05/24/18 17:20 Dose: 42 mls/hr Ondansetron HCl (Zofran Inj) 4 mg IVP Q6 PRN PRN Reason: nausea Last Admin: 05/21/18 12:10 Dose: 4 mg Pantoprazole Sodium (Protonix Inj) 40 mg IVP DAILY [facility] Last Admin: 05/24/18 10:15 Dose: 40 mg Simethicone (Mylicon Chew Tab) 80 mg PO Q6 PRN PRN Reason: GI distress Last Admin: 05/24/18 07:41 Dose: 80 mg - Labs Labs: 05/24/18 07:30 05/24/18 07:30 PT 20.1 SECONDS (9.7-12.2) H 05/19/18 19:29 INR 1.8 05/19/18 19:29 APTT 20 SECONDS (21-34) L 05/19/18 19:29
--- NOTE | 2018-05-24 22:52 | CP.PCM.PN ---
Subjective - Date & Time of Evaluation Date of Evaluation: 05/23/18 Time of Evaluation: 22:52 - Subjective Subjective: Patient nearly is seen by oncologist. TPN started. Patient is currently awake and responding. Still having nausea vomiting. Poor intake noted. Vital signs are stable. Chest good air entry bilaterally, heart sounds are regular Abdomen soft, but positive mass noted Labs reviewed Assessment and recommendation: 62-year-old female with a history of metastatic prostate cancer and severe dehydration, poor intake, intractable vomiting admitted because of the unable to take anything by mouth. Patient started on TPN at this time. We will continue the PPN. Monitor hemoglobin. may need blood Objective - Vital Signs/Intake and Output Vital Signs (last 24 hours): Temp Pulse Resp BP Pulse Ox 98.1 F 64 20 102/60 97 05/24/18 15:00 05/24/18 15:00 05/24/18 15:00 05/24/18 15:00 05/24/18 15:00 Intake and Output: 05/24/18 05/25/18 18:59 06:59 Intake Total 420 Balance 420 - Medications Medications: Current Medications Acetaminophen (Tylenol 325mg Tab) 650 mg PO Q6 PRN PRN Reason: Pain, moderate (4-7) Last Admin: 05/24/18 13:09 Dose: 650 mg Heparin Sodium (Porcine) (Heparin) 5,000 units SC Q8 [facility] Last Admin: 05/24/18 21:27 Dose: 5,000 units Multivitamins/Vitamin C 10 ml/Chromium/Copper/Manganese/Zinc 1 ml/ Amino Acids 1,011 mls @ 42 mls/hr IV .Q24H ONE Stop: 05/25/18 17:59 Last Admin: 05/24/18 17:20 Dose: 42 mls/hr Ondansetron HCl (Zofran Inj) 4 mg IVP Q6 PRN PRN Reason: nausea Last Admin: 05/21/18 12:10 Dose: 4 mg Pantoprazole Sodium (Protonix Inj) 40 mg IVP DAILY [facility] Last Admin: 05/24/18 10:15 Dose: 40 mg Simethicone (Mylicon Chew Tab) 80 mg PO Q6 PRN PRN Reason: GI distress Last Admin: 05/24/18 07:41 Dose: 80 mg - Labs Labs: 05/24/18 07:30 05/24/18 07:30 PT 20.1 SECONDS (9.7-12.2) H 05/19/18 19:29 INR 1.8 05/19/18 19:29 APTT 20 SECONDS (21-34) L 05/19/18 19:29
--- NOTE | 2018-05-25 08:38 | CP.PCM.PN ---
Subjective - Date & Time of Evaluation Date of Evaluation: 05/25/18 Time of Evaluation: 08:37 - Subjective Subjective: Patient this morning was comfortable. Not in any distress. No chest pain or shortness of breath But complaining of some abdominal discomfort pain nausea. On examination: Vital signs are stable. Chest good air entry, regular heart sounds noted Patient has a mild suprapubic, epigastric tenderness. Still nausea noted. Currently on TPN Will get the labs today, if the hemoglobin is low patient might need a transfusion. We will continue the current treatment. And the patient will need possibly home infusion of TPN, as well as home health aide and visiting nurse. We will follow the patient Objective - Vital Signs/Intake and Output Vital Signs (last 24 hours): Temp Pulse Resp BP Pulse Ox 98.4 F 67 30 H 109/71 97 05/25/18 07:52 05/25/18 07:52 05/25/18 07:52 05/25/18 07:52 05/25/18 07:52 Intake and Output: 05/25/18 05/25/18 06:59 18:59 Intake Total 800 336 Balance 800 336 - Medications Medications: Current Medications Acetaminophen (Tylenol 325mg Tab) 650 mg PO Q6 PRN PRN Reason: Pain, moderate (4-7) Last Admin: 05/24/18 13:09 Dose: 650 mg Heparin Sodium (Porcine) (Heparin) 5,000 units SC Q8 MELVA Last Admin: 05/25/18 05:59 Dose: 5,000 units Multivitamins/Vitamin C 10 ml/Chromium/Copper/Manganese/Zinc 1 ml/ Amino Acids 1,011 mls @ 42 mls/hr IV .Q24H ONE Stop: 05/25/18 17:59 Last Admin: 05/24/18 17:20 Dose: 42 mls/hr Ondansetron HCl (Zofran Inj) 4 mg IVP Q6 PRN PRN Reason: nausea Last Admin: 05/21/18 12:10 Dose: 4 mg Pantoprazole Sodium (Protonix Inj) 40 mg IVP DAILY MELVA Last Admin: 05/24/18 10:15 Dose: 40 mg Simethicone (Mylicon Chew Tab) 80 mg PO Q6 PRN PRN Reason: GI distress Last Admin: 05/24/18 07:41 Dose: 80 mg - Labs Labs: 05/24/18 07:30 05/24/18 07:30 PT 20.1 SECONDS (9.7-12.2) H 05/19/18 19:29 INR 1.8 05/19/18 19:29 APTT 20 SECONDS (21-34) L 05/19/18 19:29
[2018-05-25 09:15] LABS: BASO # 0.1 K/uL (0.0-0.2); EOS # 1.8 K/uL (0.0-0.7); EOS % 17.4 % (0.0-4.0); HEMOGLOBIN 7.3 g/dL (11.0-16.0); LYMPH # 1.1 K/uL (1.0-4.3); LYMPH % 10.9 % (20.0-40.0); MEAN CORPUSCULAR HEMOGLOBIN 25.1 pg (27.0-31.0); MEAN CORPUSCULAR HGB CONC 31.6 g/dL (33.0-37.0); MEAN PLATELET VOLUME 7.7 fL (7.2-11.7); MONO # 1.1 K/uL (0.0-0.8); MONO % 10.9 % (0.0-10.0); NEUT # 6.1 K/uL (1.8-7.0); NEUT % 59.8 % (50.0-75.0); RBC 2.91 Mil/uL (3.80-5.20); RED CELL DISTRIBUTION WIDTH 17.9 % (11.5-14.5); WHITE BLOOD COUNT 10.2 K/uL (4.8-10.8)
[2018-05-25 09:17] LABS: MEAN CELL VOLUME 79.4 fL (81.0-99.0)
[2018-05-25 09:34] LABS: ALB/GLOB RATIO 1.1 (1.0-2.1); ALBUMIN 2.6 g/dL (3.5-5.0); ALT/SGPT 14 U/L (9-52); AST/SGOT 16 U/L (14-36); BLOOD UREA NITROGEN 8 mg/dL (7-17); CALCIUM 8.4 mg/dl (8.6-10.4); GFR NON-AFRICAN AMERICAN > 60
[2018-05-25 16:00] VITALS: RESP 20
[2018-05-25] MEDS ORDERED: PPN#5 IV ONE (18:00)
[2018-05-25] MEDS: Amoxicillin-Clav 875-125 mg Tab PO SCH (21:33)
[2018-05-26] MEDS: Amoxicillin-Clav 875-125 mg Tab PO SCH ×2 (09:35→21:29)
[2018-05-26] MEDS ORDERED: PPN#6 IV ONE (18:00)
--- NOTE | 2018-05-26 18:35 | CP.PCM.PN ---
Subjective - Date & Time of Evaluation Date of Evaluation: 05/26/18 Time of Evaluation: 18:35 - Subjective Subjective: Patient had a very low albumin currently. Patient is also having significant epigastric mass, CAT scan showing evidence of large mass in the pancreatic, extending into the stomach wall, and also there is extension into the neda hepatis area. With this situation it is impossible to put the PEG tube. Patient also having evidence of worsening weight loss patient lost almost 60 pounds over the course of 2 months. In my opinion patient will benefit with total parenteral nutrition. Patient has advanced metastatic pancreatic cancer and poor nutrition, poor prognosis. Objective - Vital Signs/Intake and Output Vital Signs (last 24 hours): Temp Pulse Resp BP Pulse Ox 99 F 78 20 106/68 97 05/26/18 16:00 05/26/18 16:00 05/26/18 16:00 05/26/18 16:00 05/26/18 16:00 Intake and Output: 05/26/18 05/26/18 06:59 18:59 Intake Total 456 536 Balance 456 536 - Medications Medications: Current Medications Acetaminophen (Tylenol 325mg Tab) 650 mg PO Q6 PRN PRN Reason: Pain, moderate (4-7) Last Admin: 05/25/18 19:30 Dose: 650 mg Amoxicillin/Clavulanate Potassium (Augmentin 875 Mg-125 Mg Tab) 1 tab PO Q12H [facility]; Protocol Last Admin: 05/26/18 09:35 Dose: 1 tab Heparin Sodium (Porcine) (Heparin) 5,000 units SC Q8 MELVA Last Admin: 05/26/18 15:00 Dose: 5,000 units Multivitamins/Vitamin C 10 ml/Chromium/Copper/Manganese/Zinc 1 ml/ Amino Acids 1,011 mls @ 42 mls/hr IV .Q24H ONE Stop: 05/27/18 17:59 Last Admin: 05/26/18 17:09 Dose: 42 mls/hr Ondansetron HCl (Zofran Inj) 4 mg IVP Q6 PRN PRN Reason: nausea Last Admin: 05/21/18 12:10 Dose: 4 mg Pantoprazole Sodium (Protonix Inj) 40 mg IVP DAILY MELVA Last Admin: 05/26/18 09:36 Dose: 40 mg Simethicone (Mylicon Chew Tab) 80 mg PO Q6 PRN PRN Reason: GI distress Last Admin: 05/24/18 07:41 Dose: 80 mg - Labs Labs: 05/25/18 08:51 05/25/18 08:51 PT 20.1 SECONDS (9.7-12.2) H 05/19/18 19:29 INR 1.8 05/19/18 19:29 APTT 20 SECONDS (21-34) L 05/19/18 19:29
[2018-05-27] MEDS: Amoxicillin-Clav 875-125 mg Tab PO SCH ×2 (10:01→21:40)
[2018-05-27] MEDS ORDERED: PPN IV ONE (18:00)
--- NOTE | 2018-05-27 21:51 | CP.PCM.PN ---
Subjective - Date & Time of Evaluation Date of Evaluation: 05/27/18 Time of Evaluation: 21:49 - Subjective Subjective: Patient is now comfortable not in any distress She received 1 unit of blood transfusion this morning. She is feeling well, some less pain Still continues to have nausea, vomiting, poor intake noted. Bowel movements are very scanty On examination: Vital signs otherwise stable. Chest good air entry Heart sounds are regular Nontender abdomen. Assessment and recommendation: 62-year-old female with a history of metastatic pancreatic cancer, status post Whipple's for the procedure we will continue the current treatment. Possible discharge plan tomorrow Patient will need a possible nutritional supplementation , Will awaiting for the insurance approval Objective - Vital Signs/Intake and Output Vital Signs (last 24 hours): Temp Pulse Resp BP Pulse Ox 99 F 76 20 114/75 98 05/27/18 17:24 05/27/18 17:24 05/27/18 17:24 05/27/18 17:24 05/27/18 16:00 Intake and Output: 05/27/18 05/28/18 18:59 06:59 Intake Total 934 Balance 934 - Medications Medications: Current Medications Acetaminophen (Tylenol 325mg Tab) 650 mg PO Q6 PRN PRN Reason: Pain, moderate (4-7) Last Admin: 05/27/18 13:34 Dose: 650 mg Amoxicillin/Clavulanate Potassium (Augmentin 875 Mg-125 Mg Tab) 1 tab PO Q12H MELVA; Protocol Last Admin: 05/27/18 21:40 Dose: 1 tab Heparin Sodium (Porcine) (Heparin) 5,000 units SC Q8 MELVA Last Admin: 05/27/18 21:41 Dose: 5,000 units Multivitamins/Vitamin C 10 ml/Chromium/Copper/Manganese/Zinc 1 ml/ Amino Acids 1,011 mls @ 42 mls/hr IV .Q24H ONE Stop: 05/28/18 17:59 Last Admin: 05/27/18 18:01 Dose: 42 mls/hr Ondansetron HCl (Zofran Inj) 4 mg IVP Q6 PRN PRN Reason: nausea Last Admin: 05/21/18 12:10 Dose: 4 mg Pantoprazole Sodium (Protonix Inj) 40 mg IVP DAILY MELVA Last Admin: 05/27/18 11:06 Dose: 40 mg Simethicone (Mylicon Chew Tab) 80 mg PO Q6 PRN PRN Reason: GI distress Last Admin: 05/24/18 07:41 Dose: 80 mg - Labs Labs: 05/25/18 08:51 05/25/18 08:51 PT 20.1 SECONDS (9.7-12.2) H 05/19/18 19:29 INR 1.8 05/19/18 19:29 APTT 20 SECONDS (21-34) L 05/19/18 19:29
[2018-05-28 07:43] LABS: BASO # 0.1 K/uL (0.0-0.2); BASO % 0.6 % (0.0-2.0); EOS # 1.7 K/uL (0.0-0.7); EOS % 13.8 % (0.0-4.0); HEMOGLOBIN 8.4 g/dL (11.0-16.0); LYMPH # 1.1 K/uL (1.0-4.3); LYMPH % 8.9 % (20.0-40.0); MEAN CELL VOLUME 80.6 fL (81.0-99.0); MEAN CORPUSCULAR HEMOGLOBIN 24.8 pg (27.0-31.0); MEAN CORPUSCULAR HGB CONC 30.8 g/dL (33.0-37.0); MEAN PLATELET VOLUME 7.5 fL (7.2-11.7); MONO % 8.1 % (0.0-10.0); NEUT # 8.5 K/uL (1.8-7.0); NEUT % 68.6 % (50.0-75.0); PLATELET COUNT 340 K/uL (130-400); RED CELL DISTRIBUTION WIDTH 18.5 % (11.5-14.5); WHITE BLOOD COUNT 12.3 K/uL (4.8-10.8)
[2018-05-28 08:03] LABS: ALB/GLOB RATIO 1.1 (1.0-2.1); ALBUMIN 2.9 g/dL (3.5-5.0); ALT/SGPT 15 U/L (9-52); AST/SGOT 19 U/L (14-36); BLOOD UREA NITROGEN 6 mg/dL (7-17); CALCIUM 8.6 mg/dl (8.6-10.4); GFR NON-AFRICAN AMERICAN > 60
[2018-05-28 08:36] LABS: EOSINOPHIL 16 % (0-4); LYMPHOCYTE 11 % (20-40); MONOCYTE 8 % (0-10); NEUTROPHIL 65 % (50-75); TOTAL CELLS COUNTED 100
[2018-05-28 08:40] LABS: PLATELET ESTIMATE NORMAL (NORMAL)
[2018-05-28 08:43] LABS: ANISOCYTOSIS SLIGHT
[2018-05-28 08:45] LABS: HYPOCHROMIC MODERATE
--- NOTE | 2018-05-28 09:39 | CP.PCM.PN ---
Subjective - Date & Time of Evaluation Date of Evaluation: 05/28/18 Time of Evaluation: 09:37 - Subjective Subjective: Patient is complaining of abdominal pain left lower quadrant pain noted No nausea. Yesterday patient had at least 5-6 times of diarrhea mostly loose BM. This morning patient had one episode of BM. She is also feeling pain more on the left lower quadrant She was complaining of some rash in the left upper quadrant in the abdominal area Vital signs are stable. Chest good air entry Heart sounds are regular Nontender Minimal left lower quadrant tenderness Abdomen. There is no visible rash noted Labs reviewed Assessment and recommendation: 62-year-old female with a history of pancreatic cancer Now metastasizing into the extending into the posterior gastric mucosa. Patient is also having metastatic lesions around the neda hepatis with lymphadenopathy. Unable to do any intervention at this time. Patient is on TPN which he needs to be. Also unable to tolerate the feeding, nausea vomiting as well as frequent diarrheal episodes noted. Possible discharge plan today Objective - Vital Signs/Intake and Output Vital Signs (last 24 hours): Temp Pulse Resp BP Pulse Ox 99 F 70 20 111/64 97 05/28/18 08:10 05/28/18 08:10 05/28/18 08:10 05/28/18 08:10 05/28/18 08:10 Intake and Output: 05/28/18 05/28/18 06:59 18:59 Intake Total 1168 Balance 1168 - Medications Medications: Current Medications Acetaminophen (Tylenol 325mg Tab) 650 mg PO Q6 PRN PRN Reason: Pain, moderate (4-7) Last Admin: 05/27/18 13:34 Dose: 650 mg Amoxicillin/Clavulanate Potassium (Augmentin 875 Mg-125 Mg Tab) 1 tab PO Q12H [facility]; Protocol Last Admin: 05/27/18 21:40 Dose: 1 tab Heparin Sodium (Porcine) (Heparin) 5,000 units SC Q8 MELVA Last Admin: 05/28/18 07:49 Dose: Not Given Multivitamins/Vitamin C 10 ml/Chromium/Copper/Manganese/Zinc 1 ml/ Amino Acids 1,011 mls @ 42 mls/hr IV .Q24H ONE Stop: 05/28/18 17:59 Last Admin: 05/27/18 18:01 Dose: 42 mls/hr Ketorolac Tromethamine (Toradol) 15 mg IVP STAT STA Stop: 05/28/18 09:35 Ondansetron HCl (Zofran Inj) 4 mg IVP Q6 PRN PRN Reason: nausea Last Admin: 05/21/18 12:10 Dose: 4 mg Pantoprazole Sodium (Protonix Inj) 40 mg IVP DAILY MELVA Last Admin: 05/27/18 11:06 Dose: 40 mg Simethicone (Mylicon Chew Tab) 80 mg PO Q6 PRN PRN Reason: GI distress Last Admin: 05/24/18 07:41 Dose: 80 mg - Labs Labs: 05/28/18 07:34 05/28/18 07:34 PT 20.1 SECONDS (9.7-12.2) H 05/19/18 19:29 INR 1.8 05/19/18 19:29 APTT 20 SECONDS (21-34) L 05/19/18 19:29
[2018-05-28] MEDS: Amoxicillin-Clav 875-125 mg Tab PO SCH ×2 (09:46→22:14)
--- NOTE | 2018-05-28 16:18 | CP.PCM.DIS ---
Provider - Provider Date of Admission: 05/21/18 09:00 Attending physician: Oleksandr Arndt MD Consults: 05/19/18 22:18 Hematology Oncology Consult Routine Comment: Consulting Provider: Siena Alarcon Consulting Physician: Siena Alarcon Reason for Consult: ca pancreas 05/21/18 09:20 Nursing Referral for Palliative Care Routine Comment: Physician Instructions: for eval Reason For Exam: score 12 05/21/18 09:33 Case Management Referral Routine Comment: Physician Instructions: Reason For Exam: needs assistance at home Reason for Referral: Discharge Planning 05/21/18 09:45 Social Work Referral Routine Comment: FOR EVAL Physician Instructions: Reason For Exam: KISHORE SCORE 9 Time Spent in preparation of Discharge (in minutes): 30 Hospital Course - Lab Results Lab Results: Most Recent Lab Values WBC 12.3 K/uL (4.8-10.8) H 05/28/18 07:34 RBC 3.40 Mil/uL (3.80-5.20) L 05/28/18 07:34 Hgb 8.4 g/dL (11.0-16.0) L 05/28/18 07:34 Hct 27.4 % (34.0-47.0) L 05/28/18 07:34 MCV 80.6 fL (81.0-99.0) L 05/28/18 07:34 MCH 24.8 pg (27.0-31.0) L 05/28/18 07:34 MCHC 30.8 g/dL (33.0-37.0) L 05/28/18 07:34 RDW 18.5 % (11.5-14.5) H 05/28/18 07:34 Plt Count 340 K/uL (130-400) 05/28/18 07:34 MPV 7.5 fL (7.2-11.7) 05/28/18 07:34 Neut % (Auto) 68.6 % (50.0-75.0) 05/28/18 07:34 Lymph % (Auto) 8.9 % (20.0-40.0) L 05/28/18 07:34 [place] % (Auto) 8.1 % (0.0-10.0) 05/28/18 07:34 Eos % (Auto) 13.8 % (0.0-4.0) H 05/28/18 07:34 Baso % (Auto) 0.6 % (0.0-2.0) 05/28/18 07:34 Neut # (Auto) 8.5 K/uL (1.8-7.0) H 05/28/18 07:34 Lymph # (Auto) 1.1 K/uL (1.0-4.3) 05/28/18 07:34 [place] # (Auto) 1.0 K/uL (0.0-0.8) H 05/28/18 07:34 Eos # (Auto) 1.7 K/uL (0.0-0.7) H 05/28/18 07:34 Baso # (Auto) 0.1 K/uL (0.0-0.2) 05/28/18 07:34 Neutrophils % (Manual) 65 % (50-75) 05/28/18 07:34 Band Neutrophils % 1 % (0-2) 05/19/18 19:29 Lymphocytes % (Manual) 11 % (20-40) L 05/28/18 07:34 Monocytes % (Manual) 8 % (0-10) 05/28/18 07:34 Eosinophils % (Manual) 16 % (0-4) H 05/28/18 07:34 Nucleated RBC % 1 % (0-0) H 05/21/18 14:17 Platelet Estimate Normal (NORMAL) 05/28/18 07:34 Hypochromasia (manual) Moderate 05/28/18 07:34 Anisocytosis (manual) Slight 05/28/18 07:34 [place] Cells Slight 05/21/18 14:17 PT 20.1 SECONDS (9.7-12.2) H 05/19/18 19:29 INR 1.8 05/19/18 19:29 APTT 20 SECONDS (21-34) L 05/19/18 19:29 Sodium 130 mmol/L (132-148) L 05/28/18 07:34 Potassium 3.8 mmol/L (3.6-5.2) 05/28/18 07:34 Chloride 98 mmol/L (98-107) 05/28/18 07:34 Carbon Dioxide 24 mmol/L (22-30) 05/28/18 07:34 Anion Gap 12 (10-20) 05/28/18 07:34 BUN 6 mg/dL (7-17) L 05/28/18 07:34 Creatinine 0.4 mg/dL (0.7-1.2) L 05/28/18 07:34 Est GFR ( Amer) > 60 05/28/18 07:34 Est GFR (Non-Af Amer) > 60 05/28/18 07:34 POC Glucose (mg/dL) 172 mg/dL (65-110) H 05/27/18 21:15 Random Glucose 182 mg/dL (65-105) H 05/28/18 07:34 Calcium 8.6 mg/dl (8.6-10.4) 05/28/18 07:34 Phosphorus 4.1 mg/dL (2.5-4.5) 05/28/18 07:34 Magnesium 1.6 mg/dL (1.6-2.3) 05/28/18 07:34 Total Bilirubin 0.5 mg/dL (0.2-1.3) 05/28/18 07:34 Direct Bilirubin 0.9 mg/dL (0.0-0.4) H 05/19/18 19:29 AST 19 U/L (14-36) 05/28/18 07:34 ALT 15 U/L (9-52) 05/28/18 07:34 Alkaline Phosphatase 108 U/L (38-126) 05/28/18 07:34 Total Protein 5.4 g/dL (6.3-8.3) L 05/28/18 07:34 Albumin 2.9 g/dL (3.5-5.0) L 05/28/18 07:34 Globulin 2.5 gm/dL (2.2-3.9) 05/28/18 07:34 Albumin/Globulin Ratio 1.1 (1.0-2.1) 05/28/18 07:34 Lipase 44 U/L (23-300) 05/19/18 19:29 Urine Color Yellow (YELLOW) 05/20/18 07:45 Urine Clarity Hazy (Clear) 05/20/18 07:45 Urine pH 6.0 (5.0-8.0) 05/20/18 07:45 Ur Specific [place] 1.020 (1.003-1.030) 05/20/18 07:45 Urine Protein 2+ mg/dL (NEGATIVE) H 05/20/18 07:45 Urine Glucose (UA) Normal mg/dL (Normal) 05/20/18 07:45 Urine Ketones 2+ mg/dL (NEGATIVE) H 05/20/18 07:45 Urine Blood Negative (NEGATIVE) 05/20/18 07:45 Urine Nitrate Negative (NEGATIVE) 05/20/18 07:45 Urine Bilirubin Negative (NEGATIVE) 05/20/18 07:45 Urine Urobilinogen Normal mg/dL (0.2-1.0) 05/20/18 07:45 Ur Leukocyte Esterase Neg [place]/uL (Negative) 05/20/18 07:45 Urine WBC (Auto) 20 /hpf (0-5) H 05/20/18 07:45 Urine RBC (Auto) 2 /hpf (0-3) 05/20/18 07:45 Ur Squamous Epith Cells 4 /hpf (0-5) 05/20/18 07:45 Urine Bacteria Occ (<OCC) H 05/20/18 07:45 Hyaline Casts >20 /lpf (0-2) H 05/20/18 07:45 Blood Type O POSITIVE 05/26/18 19:43 Antibody Screen Negative 05/26/18 19:43 - Hospital Course Hospital Course: the patient supposed to be ge getting discharged to today, but because of thebed availability, patient is not able to get discharged today. Patient is currently feeling well otherwise. Weakness noted. No chest pain No nausea, and vomiting clinical examination is unremarkable Patient is currently receiving partial parenteral nutritio we'll continue the current [facility] follow the patient Discharge Plan - Discharge Medications Prescriptions: Ondansetron ODT [Zofran ODT] 4 mg PO Q8 PRN #90 odt PRN Reason: Nausea/Vomiting - Follow Up Plan Condition: STABLE Disposition: REHAB FACILITY/REHAB UNIT Instructions: Nausea and Vomiting, Adult (DC) Additional Instructions: discharge to [facility] with portacath accessed as per dr arndt
--- NOTE | 2018-05-28 18:07 | CP.PCM.PN ---
Subjective - Date & Time of Evaluation Date of Evaluation: 05/28/18 Time of Evaluation: 18:05 - Subjective Subjective: The patient remains weak, poor appetite, unable to eat much of her tray, which is all liquid diet. Able to sit up, is not c/o pain now, there are times she has abdominal cramps and diarrhea. Objective - Vital Signs/Intake and Output Vital Signs (last 24 hours): Temp Pulse Resp BP Pulse Ox 98.3 F 60 20 120/77 99 05/28/18 15:00 05/28/18 15:00 05/28/18 15:00 05/28/18 15:00 05/28/18 15:00 Intake and Output: 05/28/18 05/28/18 06:59 18:59 Intake Total 1168 436 Balance 1168 436 - Medications Medications: Current Medications Acetaminophen (Tylenol 325mg Tab) 650 mg PO Q6 PRN PRN Reason: Pain, moderate (4-7) Last Admin: 05/27/18 13:34 Dose: 650 mg Amoxicillin/Clavulanate Potassium (Augmentin 875 Mg-125 Mg Tab) 1 tab PO Q12H [facility]; Protocol Last Admin: 05/28/18 09:46 Dose: 1 tab Heparin Sodium (Porcine) (Heparin) 5,000 units SC Q8 MELVA Last Admin: 05/28/18 13:36 Dose: 5,000 units Ondansetron HCl (Zofran Inj) 4 mg IVP Q6 PRN PRN Reason: nausea Last Admin: 05/21/18 12:10 Dose: 4 mg Pantoprazole Sodium (Protonix Inj) 40 mg IVP DAILY [facility] Last Admin: 05/28/18 09:50 Dose: 40 mg Simethicone (Mylicon Chew Tab) 80 mg PO Q6 PRN PRN Reason: GI distress Last Admin: 05/24/18 07:41 Dose: 80 mg - Labs Labs: 05/28/18 07:34 05/28/18 07:34 PT 20.1 SECONDS (9.7-12.2) H 05/19/18 19:29 INR 1.8 05/19/18 19:29 APTT 20 SECONDS (21-34) L 05/19/18 19:29 Assessment and Plan (1) Duodenal cancer Assessment & Plan: Metastatic , progressive duodenal cancer, 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 The patient has been unable to eat, On PPn since admission, difficulty eating because of poor appetite secondary to the cancer and partial obstruction caused by the large duodenal area/pancreatic head mass. Have discussed with the patient regarding continuing PPN and switching to PO Stivarga as an outpatient. The patient has elected to go to a rehab facility for now. Status: Acute
[2018-05-29] MEDS: Amoxicillin-Clav 875-125 mg Tab PO SCH ×2 (10:00→22:18)
[2018-05-29] MEDS ORDERED: PPN IV ONE (18:00)
[2018-05-30] MEDS: Amoxicillin-Clav 875-125 mg Tab PO SCH ×2 (09:08→21:31)
[2018-05-30] MEDS: Pantoprazole 40 mg EC Tab PO SCH (09:08)
--- NOTE | 2018-05-30 12:21 | CP.PCM.PN ---
Subjective - Date & Time of Evaluation Date of Evaluation: 05/30/18 Time of Evaluation: 12:21 - Subjective Subjective: Patient is currently feeling well, no chest pain no shortness of breath. Currently receiving the PPN. Patient will be possibly discharged tomorrow to long-term rehab, and she will be continuously getting the TPN. Patient is a 62-year-old female with metastatic pancreatic cancer. Objective - Vital Signs/Intake and Output Vital Signs (last 24 hours): Temp Pulse Resp BP Pulse Ox 99.1 F 76 20 98/64 L 98 05/30/18 08:30 05/30/18 08:30 05/30/18 08:30 05/30/18 08:30 05/30/18 08:30 Intake and Output: 05/30/18 05/30/18 06:59 18:59 Intake Total 336 Balance 336 - Medications Medications: Current Medications Acetaminophen (Tylenol 325mg Tab) 650 mg PO Q6 PRN PRN Reason: Pain, moderate (4-7) Last Admin: 05/27/18 13:34 Dose: 650 mg Amoxicillin/Clavulanate Potassium (Augmentin 875 Mg-125 Mg Tab) 1 tab PO Q12H [facility]; Protocol Last Admin: 05/30/18 09:08 Dose: 1 tab Heparin Sodium (Porcine) (Heparin) 5,000 units SC Q8 [facility]ELVA Last Admin: 05/30/18 05:35 Dose: 5,000 units Dextrose (Dextrose 10% In Water) 1,000 mls @ 42 mls/hr IV .[id number] [facility] Last Admin: 05/29/18 22:13 Dose: Not Given Multivitamins/Vitamin C 10 ml/Chromium/Copper/Manganese/Zinc 1 ml/ Amino Acids 1,011 mls @ 42 mls/hr IV .Q24H ONE Stop: 05/30/18 17:59 Last Admin: 05/29/18 18:34 Dose: 42 mls/hr Multivitamins/Vitamin C 10 ml/Chromium/Copper/Manganese/Zinc 1 ml/ Amino Acids 1,011 mls @ 42 mls/hr IV .Q24H ONE Stop: 05/31/18 17:59 Ondansetron HCl (Zofran Inj) 4 mg IVP Q6 PRN PRN Reason: nausea Last Admin: 05/21/18 12:10 Dose: 4 mg Pantoprazole Sodium (Protonix Ec Tab) 40 mg PO DAILY [facility] Last Admin: 05/30/18 09:08 Dose: 40 mg Simethicone (Mylicon Chew Tab) 80 mg PO Q6 PRN PRN Reason: GI distress Last Admin: 05/24/18 07:41 Dose: 80 mg - Labs Labs: 05/28/18 07:34 05/28/18 07:34 PT 20.1 SECONDS (9.7-12.2) H 05/19/18 19:29 INR 1.8 05/19/18 19:29 APTT 20 SECONDS (21-34) L 05/19/18 19:29
[2018-05-30] MEDS ORDERED: PPN IV ONE (18:00)
[2018-05-31] MEDS: Amoxicillin-Clav 875-125 mg Tab PO SCH (09:12)
[2018-05-31] MEDS: Pantoprazole 40 mg EC Tab PO SCH (09:12)
[2018-05-31 15:47] VITALS: BP 102/88; PULSE 77; TEMP 98.8; O2SAT 100
[2018-05-31] MEDS ORDERED: Dextrose 5%/0.9% NS 1,000 ML IV SCH (16:45)
[2018-05-31] MEDS ORDERED: PPN IV ONE (18:00)
--- NOTE | 2018-06-01 15:42 | CP.PCM.PN ---
Subjective - Date & Time of Evaluation Date of Evaluation: 05/29/18 Time of Evaluation: 15:42 - Subjective Subjective: Patient is now having mild nausea, vomiting occasionally noted. But poorly eating. On examination: Vital signs are stable. Chest good air entry, regular [place] noted, nontender abdomen, no pedal edema Patient is currently awaiting for the placement at long-term rehab. Patient will be needing TPN. We will follow the patient Objective - Vital Signs/Intake and Output Vital Signs (last 24 hours): Temp Pulse Resp BP Pulse Ox 98.8 F 77 20 102/88 100 05/31/18 15:00 05/31/18 15:00 05/31/18 15:00 05/31/18 15:00 05/31/18 15:00 - Labs Labs: 05/28/18 07:34 05/28/18 07:34 PT 20.1 SECONDS (9.7-12.2) H 05/19/18 19:29 INR 1.8 05/19/18 19:29 APTT 20 SECONDS (21-34) L 05/19/18 19:29
--- NOTE | 2018-06-01 15:43 | CP.PCM.DIS ---
Provider - Provider Date of Admission: 05/21/18 09:00 Attending physician: Oleksandr Arndt MD Consults: 05/19/18 22:18 Hematology Oncology Consult Routine Comment: Consulting Provider: Siena Alarcon Consulting Physician: Siena Alarcon Reason for Consult: ca pancreas 05/21/18 09:20 Nursing Referral for Palliative Care Routine Comment: Physician Instructions: for eval Reason For Exam: score 12 05/21/18 09:33 Case Management Referral Routine Comment: Physician Instructions: Reason For Exam: needs assistance at home Reason for Referral: Discharge Planning 05/21/18 09:45 Social Work Referral Routine Comment: FOR EVAL Physician Instructions: Reason For Exam: KISHORE SCORE 9 Time Spent in preparation of Discharge (in minutes): 45 Hospital Course - Lab Results Lab Results: Most Recent Lab Values WBC 12.3 K/uL (4.8-10.8) H 05/28/18 07:34 RBC 3.40 Mil/uL (3.80-5.20) L 05/28/18 07:34 Hgb 8.4 g/dL (11.0-16.0) L 05/28/18 07:34 Hct 27.4 % (34.0-47.0) L 05/28/18 07:34 MCV 80.6 fL (81.0-99.0) L 05/28/18 07:34 MCH 24.8 pg (27.0-31.0) L 05/28/18 07:34 MCHC 30.8 g/dL (33.0-37.0) L 05/28/18 07:34 RDW 18.5 % (11.5-14.5) H 05/28/18 07:34 Plt Count 340 K/uL (130-400) 05/28/18 07:34 MPV 7.5 fL (7.2-11.7) 05/28/18 07:34 Neut % (Auto) 68.6 % (50.0-75.0) 05/28/18 07:34 Lymph % (Auto) 8.9 % (20.0-40.0) L 05/28/18 07:34 [place] % (Auto) 8.1 % (0.0-10.0) 05/28/18 07:34 Eos % (Auto) 13.8 % (0.0-4.0) H 05/28/18 07:34 Baso % (Auto) 0.6 % (0.0-2.0) 05/28/18 07:34 Neut # (Auto) 8.5 K/uL (1.8-7.0) H 05/28/18 07:34 Lymph # (Auto) 1.1 K/uL (1.0-4.3) 05/28/18 07:34 [place] # (Auto) 1.0 K/uL (0.0-0.8) H 05/28/18 07:34 Eos # (Auto) 1.7 K/uL (0.0-0.7) H 05/28/18 07:34 Baso # (Auto) 0.1 K/uL (0.0-0.2) 05/28/18 07:34 Neutrophils % (Manual) 65 % (50-75) 05/28/18 07:34 Band Neutrophils % 1 % (0-2) 05/19/18 19:29 Lymphocytes % (Manual) 11 % (20-40) L 05/28/18 07:34 Monocytes % (Manual) 8 % (0-10) 05/28/18 07:34 Eosinophils % (Manual) 16 % (0-4) H 05/28/18 07:34 Nucleated RBC % 1 % (0-0) H 05/21/18 14:17 Platelet Estimate Normal (NORMAL) 05/28/18 07:34 Hypochromasia (manual) Moderate 05/28/18 07:34 Anisocytosis (manual) Slight 05/28/18 07:34 [place] Cells Slight 05/21/18 14:17 PT 20.1 SECONDS (9.7-12.2) H 05/19/18 19:29 INR 1.8 05/19/18 19:29 APTT 20 SECONDS (21-34) L 05/19/18 19:29 Sodium 130 mmol/L (132-148) L 05/28/18 07:34 Potassium 3.8 mmol/L (3.6-5.2) 05/28/18 07:34 Chloride 98 mmol/L (98-107) 05/28/18 07:34 Carbon Dioxide 24 mmol/L (22-30) 05/28/18 07:34 Anion Gap 12 (10-20) 05/28/18 07:34 BUN 6 mg/dL (7-17) L 05/28/18 07:34 Creatinine 0.4 mg/dL (0.7-1.2) L 05/28/18 07:34 Est GFR ( Amer) > 60 05/28/18 07:34 Est GFR (Non-Af Amer) > 60 05/28/18 07:34 POC Glucose (mg/dL) 215 mg/dL (65-110) H 05/30/18 07:27 Random Glucose 182 mg/dL (65-105) H 05/28/18 07:34 Calcium 8.6 mg/dl (8.6-10.4) 05/28/18 07:34 Phosphorus 4.1 mg/dL (2.5-4.5) 05/28/18 07:34 Magnesium 1.6 mg/dL (1.6-2.3) 05/28/18 07:34 Total Bilirubin 0.5 mg/dL (0.2-1.3) 05/28/18 07:34 Direct Bilirubin 0.9 mg/dL (0.0-0.4) H 05/19/18 19:29 AST 19 U/L (14-36) 05/28/18 07:34 ALT 15 U/L (9-52) 05/28/18 07:34 Alkaline Phosphatase 108 U/L (38-126) 05/28/18 07:34 Total Protein 5.4 g/dL (6.3-8.3) L 05/28/18 07:34 Albumin 2.9 g/dL (3.5-5.0) L 05/28/18 07:34 Globulin 2.5 gm/dL (2.2-3.9) 05/28/18 07:34 Albumin/Globulin Ratio 1.1 (1.0-2.1) 05/28/18 07:34 Lipase 44 U/L (23-300) 05/19/18 19:29 Urine Color Yellow (YELLOW) 05/20/18 07:45 Urine Clarity Hazy (Clear) 05/20/18 07:45 Urine pH 6.0 (5.0-8.0) 05/20/18 07:45 Ur Specific [place] 1.020 (1.003-1.030) 05/20/18 07:45 Urine Protein 2+ mg/dL (NEGATIVE) H 05/20/18 07:45 Urine Glucose (UA) Normal mg/dL (Normal) 05/20/18 07:45 Urine Ketones 2+ mg/dL (NEGATIVE) H 05/20/18 07:45 Urine Blood Negative (NEGATIVE) 05/20/18 07:45 Urine Nitrate Negative (NEGATIVE) 05/20/18 07:45 Urine Bilirubin Negative (NEGATIVE) 05/20/18 07:45 Urine Urobilinogen Normal mg/dL (0.2-1.0) 05/20/18 07:45 Ur Leukocyte Esterase Neg [place]/uL (Negative) 05/20/18 07:45 Urine WBC (Auto) 20 /hpf (0-5) H 05/20/18 07:45 Urine RBC (Auto) 2 /hpf (0-3) 05/20/18 07:45 Ur Squamous Epith Cells 4 /hpf (0-5) 05/20/18 07:45 Urine Bacteria Occ (<OCC) H 05/20/18 07:45 Hyaline Casts >20 /lpf (0-2) H 05/20/18 07:45 C. difficile Ag & Toxin Negative (NEGATIVE) 05/30/18 23:50 Blood Type O POSITIVE 05/26/18 19:43 Antibody Screen Negative 05/26/18 19:43 - Hospital Course Hospital Course: Chief complaint: sent by oncologist because of the worsening dehydration and poor intake and persistent vomiting. 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 Patient is currently receiving the chemotherapy. But the patient is not responding as good. She is feeling increasing symptoms of weakness, poor intake, nauseated sensation, episodes of vomiting. Significant weight loss. Increasingly weakness, also sometimes lethargic feeling. Patient is not able to hold nothing by mouth, and frequently she is getting the dehydration, same thing happened at this time, while she was waiting for her chemotherapy in the doctor's office she was feeling more weak and more tired more nauseated sensation, patient was sent to the emergency room patient has a vomiting with bilious in character. Also having increasing abdominal discomfort, episodes of diarrhea occasionally noted. Recently patient was seen by oncologist, a month ago patient had a CAT scan and there was recurrence of the pancreatic mass noted. Patient currently started on kaytruda Past medical history: Hypertension, osteoporosis, osteoarthritis, history of pancreatic duodenal cancer Surgical history: Right knee arthroscopy. Whipple's procedure in September 14, 2013 Chemotherapy, currently chemotherapy. Family history: Father is 86-year-old, diabetes. Mother had a history of breast cancer, at the age of 89. Siblings healthy. Patient has no kids. Social history: Denies any smoking. Drinks alcohol occasionally. Patient is currently being seen by grain shoveler, oncologist, as well as barrel burner. Review of systems: No headache noted, occasional muscle spasm noted, denies any sinus symptoms, no chest pain, exertional shortness of breath noted, some gas and the bloated sensation in the abdomen noted. No skin lesions. On examination: HEENT PERRLA, neck supple No thyromegaly was noted and no cervical adenopathy noted Chest bilateral good air entry, no wheezing or rales noted CVS regular heart sound, no murmur Patient has abdominal pain, there is a epigastric area mass noted, form and pulsatile. Also patient has a significant weight loss, significant muscle mass loss noted. patient's labs reviewed Nonspecific Assessment/recommendation: 61-year-old female with multiple medical history hypertension, osteoarthritis, osteoporosis. Cancer of the pancreas Patient had a history of Whipple's procedure. Currently receiving chemotherapy. But the patient now admitted with worsening weakness and dehydration and muscle weakness. Likely cancer cachexia. Also patient has unstable walk. Unstable gait,. Patient after the hospitalized the patient had a fall while she was trying to get up and go to the bathroom worsening weakness noted. IV fluid. Oncological follow-up. Most likely patient has a worsening pancreatic mass and associated complications at this time. We will continue to monitor. DVT and GI prophylaxis Course in the hospital: Patient initially started on intravenous IV fluid. Patient admitted to the hospital with a severe dehydration. Attempted to feed the patient, patient was continues to have nausea, vomiting, unable to hydrate the anteriorly. Patient had significant epigastric mass, and also recurrent pancreatic tumor protruding into the stomach, unable to do PEG tube. And also jejunostomy tube is impossible because of the proposed procedure. Patient has a gastrojejunostomy. In my opinion patient will need possibly continuous TPN. She will be continuously receiving the TPN. She will continue the TPN. She will be transferred to long-term rehab. Further treatment as per the oncologist. Overall prognosis very poor Final diagnosis: Advanced metastatic pancreatic cancer Overall prognosis poor Poor nutrition. Follow-up. Discharge Plan - Discharge Medications Prescriptions: Ondansetron ODT [Zofran ODT] 4 mg PO Q8 PRN #90 odt PRN Reason: Nausea/Vomiting - Follow Up Plan Condition: STABLE Disposition: REHAB FACILITY/REHAB UNIT Instructions: Nausea and Vomiting, Adult (DC) Additional Instructions: discharge to [facility] with portacath accessed as per dr arndt
== END 2018-05-31 20:50 | DRG 641 ==
LOC: C.ER 17:56 → C.3T 20:02 → OBSVTOIN 05-21 09:00
PROVIDERS: ADMIT Internal Medicine; ATTEND Internal Medicine
PROC: 3E0336Z Introduction of Nutritional Substance into Peripheral Vein, Percutaneous Approach (ICD-10-PCS; principal; 2018-05-21)
DX: E86.0 Dehydration (principal); R64 Cachexia; C17.0 Malignant neoplasm of duodenum; C25.9 Malignant neoplasm of pancreas, unspecified; I10 Essential (primary) hypertension; E11.9 Type 2 diabetes mellitus without complications; D64.9 Anemia, unspecified; M81.0 Age-related osteoporosis without current pathological fracture; Z86.010 Personal history of colon polyps; F41.9 Anxiety disorder, unspecified; Z87.891 Personal history of nicotine dependence; E87.8 Other disorders of electrolyte and fluid balance, not elsewhere classified; Z51.5 Encounter for palliative care; R56.9 Unspecified convulsions

== ENCOUNTER 2018-07-13 16:41 | Inpatient (IN) | payer MEDICARE ==
[2018-07-13 17:00] VITALS: BMI 20.6
--- NOTE | 2018-07-13 18:05 | C.PDOC ---
History Of Present Illness 62 y/o female with a PMHx of pancreatic cancer, now progressed to duodenum (already on TPN), presents to the ED c/o multiple episodes of nausea and vomiting since Thursday07/09/18. Patient admits her sister came to visit and brought food, so she began eating foods/vegetables that she has not had in months. Also reports multiple episodes of diarrhea. Patient states the vomiting is persistent and she is unable to keep anything down, despite TPN-only diet since then. She was seen by her oncologist Dr. Alarcon and sent to the ER for further evaluation and to r/o C. diff. Denies any fevers, chills, or other complaints. Time Seen by Provider: 07/13/18 17:10 Chief Complaint (Nursing): Abdominal Pain History Per: Patient History/Exam Limitations: no limitations Onset/Duration Of Symptoms: Days Current Symptoms Are (Timing): Still Present Associated Symptoms: Nausea, Vomiting, Diarrhea Past Medical History Reviewed: Historical Data, Nursing Documentation, Vital Signs Vital Signs: Last Vital Signs Temp 98.8 F 07/13/18 17:00 Pulse 102 H 07/13/18 17:00 Resp 16 07/13/18 17:00 BP 110/76 07/13/18 17:00 Pulse Ox 98 07/13/18 17:00 Primary Care Provider: Oleksandr Arndt - Medical History PMH: Anxiety, Colonic Polyps, HTN, Malignancy (Advanced pancreatic/duodenal CA), Osteoporosis Denies: Fractures, Chronic Kidney Disease, TIA Surgical History: Endoscopy - [facility] Procedures INTRODUCTION OF NUTRITIONAL INTO PERIPH VEIN, PERC APPROACH (05/21/18) Family History: States: Unknown Family Hx - Social History Hx Alcohol Use: No Hx Substance Use: No - Immunization History Hx Tetanus Toxoid Vaccination: No Hx Influenza Vaccination: Yes (2018) Hx Pneumococcal Vaccination: No Review Of Systems Constitutional: Negative for: Fever, Chills Cardiovascular: Negative for: Chest Pain Respiratory: Negative for: Shortness of Breath Gastrointestinal: Positive for: Nausea, Vomiting, Abdominal Pain, Diarrhea Musculoskeletal: Negative for: Back Pain Neurological: Negative for: Weakness, Dizziness Physical Exam - Physical Exam Appears: No Acute Distress, Chronically Ill Skin: Warm, No Rash Head: Atraumatic, Normacephalic Eye(s): bilateral: PERRL, EOMI Tongue: Other (White-gilberto coating to tongue) Neck: Normal ROM Chest: Other (Port to the left upper chest wall) Cardiovascular: Rhythm Regular, Other (Tachycardic) Respiratory: No Rales, No Rhonchi, No Wheezing, Other (Lungs CTA bilaterally) Gastrointestinal/Abdominal: Bowel Sounds (normal), Soft, Mass (Large, tender mass protruding from left side of abdomen), Other (large well-healed midline scar in abdomen) Back: No CVA Tenderness Extremity: Normal ROM, No Pedal Edema, No Deformity Neurological/Psych: Oriented x3, Normal Speech, Normal Cognition ED Course And Treatment - Laboratory Results Result Diagrams: 07/13/18 18:31 07/13/18 18:31 O2 Sat by Pulse Oximetry: 98 (on RA) Pulse Ox Interpretation: Normal Medical Decision Making Medical Decision Making: Initial Plan: Blood work, urine, and stool sample sent for analysis. Urine and stool cultures ordered. Pending CT Abdomen/Pelvis with IV contrast. Disposition Discussed With Dr.: Oleksandr Arndt Doctor Will See Patient In The: Hospital - Disposition Disposition: HOSPITALIZED Disposition Time: 19:18 Condition: SERIOUS - Clinical Impression Clinical Impression: Leucocytosis, Vomiting, Pancreatic cancer - PA / SENIOR TECHNICAL EDITOR / Resident Statement MD/DO has reviewed & agrees with the documentation as recorded. - Scribe Statement The provider has reviewed the documentation as recorded by the Carlos A Madsen All medical record entries made by the Scribe were at my direction and personall y dictated by me. I have reviewed the chart and agree that the record accurately reflects my personal performance of the history, physical exam, medical decision making, and the department course for this patient. I have also personally directed, reviewed, and agree with the discharge instructions and disposition.
[2018-07-13 18:36] LABS: BASO # 0.2 K/uL (0.0-0.2); EOS # 0.6 K/uL (0.0-0.7); EOS % 3.8 % (0.0-4.0); HEMOGLOBIN 9.3 g/dL (11.0-16.0); LYMPH # 0.8 K/uL (1.0-4.3); LYMPH % 4.8 % (20.0-40.0); MEAN CELL VOLUME 78.4 fL (81.0-99.0); MEAN CORPUSCULAR HEMOGLOBIN 25.2 pg (27.0-31.0); MEAN CORPUSCULAR HGB CONC 32.2 g/dL (33.0-37.0); MONO # 1.2 K/uL (0.0-0.8); MONO % 7.6 % (0.0-10.0); NEUT # 13.4 K/uL (1.8-7.0); NEUT % 82.8 % (50.0-75.0); PLATELET COUNT 403 K/uL (130-400); RED CELL DISTRIBUTION WIDTH 18.4 % (11.5-14.5); WHITE BLOOD COUNT 16.2 K/uL (4.8-10.8)
[2018-07-13 18:46] LABS: INR 1.4; PROTHROMBIN TIME 15.4 SECONDS (9.7-12.2)
[2018-07-13 18:55] LABS: ALB/GLOB RATIO 1.1 (1.0-2.1); ALBUMIN 3.1 g/dL (3.5-5.0); ALT/SGPT 47 U/L (9-52); AST/SGOT 54 U/L (14-36); BLOOD UREA NITROGEN 11 mg/dL (7-17); CALCIUM 9.2 mg/dl (8.6-10.4); GFR NON-AFRICAN AMERICAN > 60; LIPASE < 10 U/L (23-300)
[2018-07-13] MEDS ORDERED: Piperacillin/Tazobact 3.375 GM in Sodium Chloride 100 ML IVPB STA (19:11)
[2018-07-13] MEDS ORDERED: Iodixanol 320 MG/ML 100 ML BOTTLE IV ONE (19:18)
[2018-07-13 19:25] LABS: VENOUS BLOOD GAS BASE EXCESS -0.3 mmol/L (0.0-2.0); VENOUS BLOOD GAS PCO2 32 mmHg (40-60); VENOUS BLOOD GAS PO2 51 mm/Hg (30-55); VENOUS BLOOD PH 7.46 (7.32-7.43)
[2018-07-13 19:44] LABS: EOSINOPHIL 2 % (0-4); LYMPHOCYTE 8 % (20-40); MICROCYTOSIS SLIGHT; MONOCYTE 3 % (0-10); NEUTROPHIL 87 % (50-75); PLATELET ESTIMATE NORMAL (NORMAL); TOTAL CELLS COUNTED 100
[2018-07-13 19:46] LABS: SQUAMOUS EPITHIAL 3 /hpf (0-5); URINE BILIRUBIN NEGATIVE (NEGATIVE); URINE BLOOD NEGATIVE (NEGATIVE); URINE CLARITY Hazy (Clear); URINE COLOR Amber (YELLOW); URINE GLUCOSE (UA) NORMAL (Normal); URINE LEUKOCYTE ESTERASE NEG Leu/uL (Negative); URINE PROTEIN 1+ mg/dL (NEGATIVE)
[2018-07-13] MEDS ORDERED: Vancomycin 1 GM 1 GM/250 ML BAG IVPB ONE (20:24)
[2018-07-13] MEDS ORDERED: Piperacillin/Tazobact 3.375 gm 100 ML IVPB ONE (20:25)
[2018-07-13] MEDS: Dextrose 5%/0.9% NS 1,000 ML IV SCH (22:26)
[2018-07-14] MEDS: Piperacill/Tazo 2.25gm in Dex 2.25 GM/50 ML BAG IVPB SCH ×4 (02:08→20:22)
--- NOTE | 2018-07-14 07:21 | RAD ---
Date of service: 07/13/2018 HISTORY: fever COMPARISON: Portable chest 05/16/2018. TECHNIQUE: 1 view obtained. FINDINGS: Left chest port unchanged in position. LUNGS: No active pulmonary disease. PLEURA: No significant pleural effusion identified, no pneumothorax apparent. CARDIOVASCULAR: No aortic atherosclerotic calcification present. Normal cardiac size. No pulmonary vascular congestion. OSSEOUS STRUCTURES: No significant abnormalities. VISUALIZED UPPER ABDOMEN: Normal. OTHER FINDINGS: None. IMPRESSION: No interval acute cardiopulmonary disease appreciated. Left chest port unchanged in position.
[2018-07-14] MEDS: Dextrose 5%/0.9% NS 1,000 ML IV SCH ×2 (07:34→16:49)
--- NOTE | 2018-07-14 07:41 | CP.PCM.HP ---
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 Patient was recently hospitalized in the [facility] with intractable vomiting, at that time because of the overall medical condition, and worsening pancreatic mass, patient was placed on TPN and she was sent to rehabilitation. Patient was in long-term acute rehab for almost 28 days, and following that she was sent to home. At home patient was there for few days, and receiving the TPN by the nurse and agency, but she started having increasing weakness, fatigue and worsening vomiting. patient has a vomiting with bilious in character. Also having increasing abdominal discomfort, episodes of diarrhea occasionally noted. Recently patient was seen by oncologist, a month ago patient had a CAT scan and there was recurrence of the pancreatic mass noted. Patient currently started on kaytruda Past medical history: Hypertension, osteoporosis, osteoarthritis, history of pancreatic duodenal cancer Surgical history: Right knee arthroscopy. Whipple's procedure in September 14, 2013 Chemotherapy, currently chemotherapy. Family history: Father is 86-year-old, diabetes. Mother had a history of breast cancer, at the age of 89. Siblings healthy. Patient has no kids. Social history: Denies any smoking. Drinks alcohol occasionally. Patient is currently being seen by harvest field ticketer, oncologist, as well as gastroe nterologist. Review of systems: No headache noted, occasional muscle spasm noted, denies any sinus symptoms, no chest pain, exertional shortness of breath noted, some gas and the bloated sensation in the abdomen noted. No skin lesions. On examination: HEENT PERRLA, neck supple No thyromegaly was noted and no cervical adenopathy noted Chest bilateral good air entry, no wheezing or rales noted CVS regular heart sound, no murmur Patient has abdominal pain, there is a epigastric area mass noted, form and pulsatile. Also patient has a significant weight loss, significant muscle mass loss noted. patient's labs reviewed Nonspecific Assessment/recommendation: 61-year-old female with multiple medical history hypertension, osteoarthritis, osteoporosis. Cancer of the pancreas Patient had a history of Whipple's procedure. Patient is now again having worsening vomiting. Intractable. Also patient had a fever. And underlying sepsis and a bacterial infection cannot be ruled out. Currently patient is receiving the TPN I will hold the TPN. IV antibiotic. DVT GI prophylaxis we will continue to monitor. We will keep the patient n.p.o. IV fluids Oncological evaluation Present on Admission - Present on Admission Any Indicators Present on Admission: No History of DVT/PE: No History of Uncontrolled Diabetes: No Urinary Catheter: No Decubitus Ulcer Present: No Past Patient History - Past Medical History & Family History Past Medical History?: Yes - Past Social History Smoking Status: Former Smoker - CARDIAC Hx Hypertension: Yes - PULMONARY Hx Respiratory Disorders: No - NEUROLOGICAL Hx Transient Ischemic Attacks (TIA): No - HEENT Hx HEENT Problems: No - RENAL Hx Chronic Kidney Disease: No - ENDOCRINE/METABOLIC Hx Endocrine Disorders: Yes Hx Diabetes Mellitus Type 2: Yes - HEMATOLOGICAL/ONCOLOGICAL Hx Blood Disorders: Yes (SEE COMMENT) Hx Cancer: Yes (DUODENAL (2015)) Hx Chemotherapy: Yes (PRESENTLY Q 3 WEEKS) Other/Comment: NO RADIATION; ORAL CHEMOTHERAPY MEDICATION - INTEGUMENTARY Hx Dermatological Problems: No - MUSCULOSKELETAL/RHEUMATOLOGICAL Hx Falls: Yes - GASTROINTESTINAL Hx Gastrointestinal Disorders: Yes (SEE COMMENT) Hx Bowel Surgery: Yes (WHIPPLE PROCEDURE SEPTEMBER 2013) Other/Comment: PANCREATICODUODENAL CANCER 2013; MALROTATED INTESTINES - GENITOURINARY/GYNECOLOGICAL Hx Genitourinary Disorders: No - PSYCHIATRIC Hx Substance Use: No - SURGICAL HISTORY Hx Surgeries: Yes Hx Hysterectomy: Yes (PARTIAL 1989; FIBROIDS) Other/Comment: WHIPPLE'S Procedure 2013 - ANESTHESIA Hx Anesthesia: Yes Hx Anesthesia Reactions: No Hx Malignant Hyperthermia: No Meds Allergies/Adverse Reactions: Allergies Allergy/AdvReac Type Severity Reaction Status Date / Time No Known Allergies Allergy Verified 07/13/18 16:58 Results - Vital Signs Recent Vital Signs: Last Vital Signs Temp 97.7 F 07/14/18 05:44 Pulse 97 H 07/14/18 00:00 Resp 20 07/14/18 00:00 BP 130/85 07/14/18 00:00 Pulse Ox 98 07/14/18 00:00 - Labs Result Diagrams: 07/15/18 13:06 07/15/18 13:06 Labs: Laboratory Results - last 24 hr 07/13/18 07/13/18 07/13/18 18:31 18:31 18:31 WBC 16.2 H RBC 3.70 L Hgb 9.3 L Hct 29.0 L MCV 78.4 L MCH 25.2 L MCHC 32.2 L RDW 18.4 H Plt Count 403 H MPV 7.0 L Neut % (Auto) 82.8 H Lymph % (Auto) 4.8 L [place] % (Auto) 7.6 Eos % (Auto) 3.8 Baso % (Auto) 1.0 Neut # (Auto) 13.4 H Lymph # (Auto) 0.8 L [place] # (Auto) 1.2 H Eos # (Auto) 0.6 Baso # (Auto) 0.2 Neutrophils % (Manual) 87 H Lymphocytes % (Manual) 8 L Monocytes % (Manual) 3 Eosinophils % (Manual) 2 Platelet Estimate Normal Microcytosis (manual) Slight PT 15.4 H INR 1.4 APTT 34.0 pO2 VBG pH VBG pCO2 VBG HCO3 VBG Total CO2 VBG O2 Sat (Calc) VBG Base Excess VBG Potassium Glucose Lactate Sodium 133 Potassium 4.1 Chloride 96 L Carbon Dioxide 23 Anion Gap 18 BUN 11 Creatinine 0.5 L Est GFR ( Amer) > 60 Est GFR (Non-Af Amer) > 60 Random Glucose 152 H Calcium 9.2 Total Bilirubin 0.5 AST 54 H D ALT 47 Alkaline Phosphatase 396 H D Total Protein 6.0 L Albumin 3.1 L Globulin 2.9 Albumin/Globulin Ratio 1.1 Lipase < 10 L Venous Blood Potassium Urine Color Urine Clarity Urine pH Ur Specific [place] Urine Protein Urine Glucose (UA) Urine Ketones Urine Blood Urine Nitrate Urine Bilirubin Urine Urobilinogen Ur Leukocyte Esterase Urine WBC (Auto) Urine RBC (Auto) Ur Squamous Epith Cells 07/13/18 07/13/18 19:22 19:33 WBC RBC Hgb Hct MCV MCH MCHC RDW Plt Count MPV Neut % (Auto) Lymph % (Auto) [place] % (Auto) Eos % (Auto) Baso % (Auto) Neut # (Auto) Lymph # (Auto) [place] # (Auto) Eos # (Auto) Baso # (Auto) Neutrophils % (Manual) Lymphocytes % (Manual) Monocytes % (Manual) Eosinophils % (Manual) Platelet Estimate Microcytosis (manual) PT INR APTT pO2 51 VBG pH 7.46 H VBG pCO2 32 L VBG HCO3 24.4 VBG Total CO2 23.8 VBG O2 Sat (Calc) 89.9 H VBG Base Excess -0.3 L VBG Potassium 3.6 Glucose 142 H Lactate 0.9 Sodium 131.0 L Potassium Chloride 102.0 Carbon Dioxide Anion Gap BUN Creatinine Est GFR ( Amer) Est GFR (Non-Af Amer) Random Glucose Calcium Total Bilirubin AST ALT Alkaline Phosphatase Total Protein Albumin Globulin Albumin/Globulin Ratio Lipase Venous Blood Potassium 3.6 Urine Color [place] Urine Clarity Hazy Urine pH 5.0 Ur Specific [place] 1.026 Urine Protein 1+ H Urine Glucose (UA) Normal Urine Ketones 1+ H Urine Blood Negative Urine Nitrate Negative Urine Bilirubin Negative Urine Urobilinogen 2.0 H Ur Leukocyte Esterase Neg Urine WBC (Auto) 5 Urine RBC (Auto) < 1 Ur Squamous Epith Cells 3
--- NOTE | 2018-07-14 07:42 | CP.PCM.PN ---
Subjective - Date & Time of Evaluation Date of Evaluation: 07/14/18 Time of Evaluation: 07:41 - Subjective Subjective: Patient is still feeling extremely weak tired fatigue. Unable to eat anything tolerate anything by mouth. We will continue the IV fluid. Will monitor the labs. Overall prognosis very poor Objective - Vital Signs/Intake and Output Vital Signs (last 24 hours): Temp Pulse Resp BP Pulse Ox 97.7 F 97 H 20 130/85 98 07/14/18 05:44 07/14/18 00:00 07/14/18 00:00 07/14/18 00:00 07/14/18 00:00 Intake and Output: 07/14/18 07/14/18 06:59 18:59 Intake Total 830 Balance 830 - Medications Medications: Current Medications Heparin Sodium (Porcine) (Heparin) 5,000 units SC Q8 MELVA Last Admin: 07/14/18 05:33 Dose: 5,000 units Dextrose/Sodium Chloride (Dextrose 5%/0.9% Ns 1000 Ml) 1,000 mls @ 100 mls/hr IV .Q10H MELVA Last Admin: 07/14/18 07:34 Dose: Not Given Piperacillin Sod/Tazobactam Sod (Zosyn 2.25 Gm Iv Premix) 2.25 gm in 50 mls @ 100 mls/hr IVPB Q6H MELVA; Protocol Last Admin: 07/14/18 02:08 Dose: 100 mls/hr Vancomycin HCl 1 gm/ Sodium (Chloride) 250 mls @ 166.7 mls/hr IVPB Q24H MELVA; Protocol Pantoprazole Sodium (Protonix Inj) 40 mg IVP [facility]ILY [facility] Pneumococcal Polyvalent Vaccine (Pneumovax 23 Vaccine) 0.5 ml IM .ONCE ONE Stop: 07/16/18 10:01 - Labs Labs: 07/13/18 18:31 07/13/18 18:31 PT 15.4 SECONDS (9.7-12.2) H 07/13/18 18:31 INR 1.4 07/13/18 18:31 APTT 34.0 SECONDS (21-34) 07/13/18 18:31
--- NOTE | 2018-07-14 10:23 | CT ---
Date of service: 07/13/2018 PROCEDURE: CT Abdomen and Pelvis with contrast HISTORY: ab cancer, vomit and inc mass COMPARISON: 05/16/2018 TECHNIQUE: Contrast dose: 100 mL Visipaque 320 Radiation dose: Total exam DLP = 469.35 mGy-cm. This CT exam was performed using one or more of the following dose reduction techniques: Automated exposure control, adjustment of the mA and/or kV according to patient size, and/or use of iterative reconstruction technique. FINDINGS: LOWER THORAX: Unremarkable. LIVER: Innumerable rounded masses throughout the liver consistent with hepatic metastasis. The number of such masses has increased markedly compared to the prior CT examination. Normal size and contour. No biliary dilatation. GALLBLADDER AND BILE DUCTS: Cholecystectomy PANCREAS: Enlarging pancreatic mass common now measures roughly 7.9 x 10.0 x 11.7 cm. There is a cystic mass in the tail of the pancreas, in the splenic hilar region, measuring approximately 2.6 cm in diameter. This is unchanged. There is marked narrowing of the portal confluence which likely indicates extrinsic compression. There is no evidence of portal venous or splenic venous thrombosis. SPLEEN: Unremarkable. ADRENALS: Unremarkable. No mass. KIDNEYS AND URETERS: 3.3 cm left lower pole renal cortical cyst. No other renal mass. No calculus or hydronephrosis. VASCULATURE: Unremarkable. No aortic aneurysm. No aortic atherosclerotic calcification or mural plaque present. BOWEL: There is marked thickening of the gastric wall, likely secondary to the adjacent pancreatic neoplasm. There is mural thickening of the duodenum. There is mural thickening of loops of proximal jejunum consistent with nonspecific enteritis though this may be related to pancreatic malignancy and possible pancreatitis. There is mural thickening of the transverse colon, nonspecific. Multiple small bowel anastomoses are identified. APPENDIX: Not identified PERITONEUM: There fluid in the pelvis. There is no pneumoperitoneum. There is mesenteric edema. LYMPH NODES: Extensive mesenteric lymphadenopathy. Retroperitoneal lymphadenopathy. No pelvic lymphadenopathy. BLADDER: Nondistended REPRODUCTIVE: Status post hysterectomy BONES: No acute fracture. OTHER FINDINGS: None. IMPRESSION: Enlarging pancreatic mass. Increasing extent of hepatic metastasis. Extensive mesenteric and retroperitoneal lymphadenopathy. Suspected compression of the portal venous confluence without thrombosis. Marked mural thickening of the stomach, duodenum and transverse colon. Mild ascites. Mesenteric edema. The preliminary findings for this examination were reported by [facility] at 8:59 p.m. on 07/13/2018. There is concurrence of this report with the preliminary findings.
[2018-07-15] MEDS: Morphine 4 MG/ML VIAL IV PRN ×2 (00:07→12:56)
[2018-07-15] MEDS: Dextrose 5%/0.9% NS 1,000 ML IV SCH ×4 (01:31→23:23)
[2018-07-15] MEDS: Piperacill/Tazo 2.25gm in Dex 2.25 GM/50 ML BAG IVPB SCH ×4 (02:34→21:52)
[2018-07-15 13:12] LABS: BASO # 0.1 K/uL (0.0-0.2); BASO % 1.1 % (0.0-2.0); EOS # 0.9 K/uL (0.0-0.7); EOS % 6.8 % (0.0-4.0); HEMOGLOBIN 7.6 g/dL (11.0-16.0); LYMPH # 0.7 K/uL (1.0-4.3); LYMPH % 5.5 % (20.0-40.0); MEAN CELL VOLUME 78.6 fL (81.0-99.0); MONO # 1.1 K/uL (0.0-0.8); MONO % 8.2 % (0.0-10.0); NEUT # 10.2 K/uL (1.8-7.0); NEUT % 78.4 % (50.0-75.0); PLATELET COUNT 329 K/uL (130-400); RBC 2.93 Mil/uL (3.80-5.20); RED CELL DISTRIBUTION WIDTH 18.8 % (11.5-14.5)
[2018-07-15 13:29] LABS: ALBUMIN 2.4 g/dL (3.5-5.0); ALT/SGPT 42 U/L (9-52); AST/SGOT 39 U/L (14-36); BLOOD UREA NITROGEN 3 mg/dL (7-17); CALCIUM 7.9 mg/dl (8.6-10.4); GFR NON-AFRICAN AMERICAN > 60
[2018-07-15 13:50] LABS: EOSINOPHIL 7 % (0-4); LYMPHOCYTE 6 % (20-40); MONOCYTE 8 % (0-10); NEUTROPHIL 79 % (50-75); PLATELET ESTIMATE NORMAL (NORMAL); TOTAL CELLS COUNTED 100
[2018-07-15 13:51] LABS: ANISOCYTOSIS SLIGHT; HYPOCHROMIC MODERATE; POIKILOCYTOSIS SLIGHT; TARGET CELLS SLIGHT
[2018-07-15 13:53] LABS: BURR CELLS SLIGHT; GIANT PLATELETS PRESENT; LARGE PLATELETS PRESENT; TEARDROP CELLS SLIGHT
[2018-07-15] MEDS ORDERED: Acetaminophen 650mg/20.3ml solution UD PO STA (19:36)
--- NOTE | 2018-07-15 21:56 | CP.PCM.PN ---
Subjective - Date & Time of Evaluation Date of Evaluation: 07/15/18 Time of Evaluation: 21:55 - Subjective Subjective: Patient is morning was feeling well. She was feeling somewhat hungry. Less weakness and less tiredness noted Still IV fluids on. No TPN was started. I am waiting for the culture of the blood and septic work-up. On antibiotic. We will continue to monitor and will follow the patient Objective - Vital Signs/Intake and Output Vital Signs (last 24 hours): Temp Pulse Resp BP Pulse Ox 98.6 F 86 18 102/65 97 07/15/18 21:34 07/15/18 21:14 07/15/18 21:14 07/15/18 21:14 07/15/18 16:00 Intake and Output: 07/15/18 07/16/18 18:59 06:59 Intake Total 800 325 Balance 800 325 - Medications Medications: Current Medications Famotidine (Pepcid) 20 mg IVP Q12 [facility] Last Admin: 07/15/18 21:51 Dose: 20 mg Heparin Sodium (Porcine) (Heparin) 5,000 units SC Q8 [facility] Last Admin: 07/15/18 21:52 Dose: Not Given Dextrose/Sodium Chloride (Dextrose 5%/0.9% Ns 1000 Ml) 1,000 mls @ 100 mls/hr IV .Q10H [facility] Last Admin: 07/15/18 12:58 Dose: 100 mls/hr Piperacillin Sod/Tazobactam Sod (Zosyn 2.25 Gm Iv Premix) 2.25 gm in 50 mls @ 100 mls/hr IVPB Q6H [facility]; Protocol Last Admin: 07/15/18 21:52 Dose: 100 mls/hr Vancomycin HCl 1 gm/ Sodium (Chloride) 250 mls @ 166.7 mls/hr IVPB Q24H [facility]; Protocol Last Admin: 07/15/18 13:12 Dose: 166.7 mls/hr Morphine Sulfate (Morphine) 2 mg IV Q6 PRN PRN Reason: Pain, moderate (4-7) Last Admin: 07/15/18 12:56 Dose: 2 mg Pantoprazole Sodium (Protonix Inj) 40 mg IVP DAILY [facility] Last Admin: 07/15/18 10:49 Dose: 40 mg Pneumococcal Polyvalent Vaccine (Pneumovax 23 Vaccine) 0.5 ml IM .ONCE ONE Stop: 07/16/18 10:01 - Labs Labs: 07/15/18 13:06 07/15/18 13:06 PT 15.4 SECONDS (9.7-12.2) H 07/13/18 18:31 INR 1.4 07/13/18 18:31 APTT 34.0 SECONDS (21-34) 07/13/18 18:31
[2018-07-15] MEDS: Magnesium Sulfate 1 gm in D5W 1 GM/100 ML BAG IVPB SCH ×2 (22:17→23:03)
[2018-07-16] MEDS: Piperacill/Tazo 2.25gm in Dex 2.25 GM/50 ML BAG IVPB SCH ×4 (03:15→21:14)
[2018-07-16 07:33] LABS: BASO # 0.1 K/uL (0.0-0.2); EOS # 1.3 K/uL (0.0-0.7); EOS % 9.5 % (0.0-4.0); LYMPH # 0.8 K/uL (1.0-4.3); LYMPH % 5.6 % (20.0-40.0); MEAN CORPUSCULAR HEMOGLOBIN 25.6 pg (27.0-31.0); MEAN CORPUSCULAR HGB CONC 31.4 g/dL (33.0-37.0); MEAN PLATELET VOLUME 7.3 fL (7.2-11.7); MONO # 1.2 K/uL (0.0-0.8); MONO % 8.7 % (0.0-10.0); NEUT # 10.4 K/uL (1.8-7.0); NEUT % 75.2 % (50.0-75.0); PLATELET COUNT 360 K/uL (130-400); WHITE BLOOD COUNT 13.8 K/uL (4.8-10.8)
[2018-07-16 07:35] LABS: MEAN CELL VOLUME 81.5 fL (81.0-99.0)
[2018-07-16 08:00] LABS: ALBUMIN 2.3 g/dL (3.5-5.0); ALT/SGPT 47 U/L (9-52); AST/SGOT 61 U/L (14-36); BLOOD UREA NITROGEN 2 mg/dL (7-17); CALCIUM 8.1 mg/dl (8.6-10.4); GFR NON-AFRICAN AMERICAN > 60
[2018-07-16] MEDS: Dextrose 5%/0.9% NS 1,000 ML IV SCH ×2 (08:18→19:22)
[2018-07-16 08:39] LABS: BANDS 1 % (0-2); EOSINOPHIL 8 % (0-4); TOTAL CELLS COUNTED 100
[2018-07-16 08:40] LABS: ANISOCYTOSIS MODERATE; BURR CELLS SLIGHT; HYPOCHROMIC SLIGHT; LYMPHOCYTE 4 % (20-40); MONOCYTE 7 % (0-10); NEUTROPHIL 80 % (50-75); OVALOCYTES SLIGHT; PLATELET ESTIMATE NORMAL (NORMAL); POIKILOCYTOSIS SLIGHT
[2018-07-16] MEDS ORDERED: Pneumococcal 23-Valent Vaccine IM ONE (10:00)
[2018-07-16] MEDS ORDERED: Potassium Chloride 20 mEq/15 ml LIQ UD PO ONE (11:30)
[2018-07-16 17:01] VITALS: RESP 20
[2018-07-16] MEDS: Morphine 4 MG/ML VIAL IV PRN (19:16)
[2018-07-17] MEDS: Piperacill/Tazo 2.25gm in Dex 2.25 GM/50 ML BAG IVPB SCH ×4 (02:56→21:18)
[2018-07-17] MEDS: Dextrose 5%/0.9% NS 1,000 ML IV SCH ×4 (04:45→19:08)
--- NOTE | 2018-07-17 06:56 | CP.PCM.PN ---
Subjective - Date & Time of Evaluation Date of Evaluation: 07/16/18 Time of Evaluation: 06:56 - Subjective Subjective: Patient is still feeling increasingly weakness. Tiredness. Fatigue. Not able to eat. Episodes of nausea. But no vomiting so far. Abdominal pain on and off on the cramping noted Vital signs are stable. Chest bilateral good air entry Heart sounds are regular No fever now. Urine output is better. Currently on IV fluid. Patient admitted with severe weakness and tiredness and a positive symptoms of sepsis including fever. Patient was on TPN. Difficult time in taking anything by mouth because of the recurrent pancreatic mass. We will continue the current treatment and will follow the patient Objective - Vital Signs/Intake and Output Vital Signs (last 24 hours): Temp Pulse Resp BP Pulse Ox 98.6 F 77 20 103/59 L 98 07/17/18 00:00 07/17/18 00:00 07/17/18 00:00 07/17/18 00:00 07/17/18 00:00 Intake and Output: 07/16/18 07/17/18 18:59 06:59 Intake Total 900 1000 Balance 900 1000 - Medications Medications: Current Medications Famotidine (Pepcid) 20 mg IVP Q12 [facility] Last Admin: 07/16/18 22:09 Dose: 20 mg Heparin Sodium (Porcine) (Heparin) 5,000 units SC Q8 [facility] Last Admin: 07/17/18 06:14 Dose: Not Given Dextrose/Sodium Chloride (Dextrose 5%/0.9% Ns 1000 Ml) 1,000 mls @ 100 mls/hr IV .Q10H [facility] Last Admin: 07/17/18 06:25 Dose: 100 mls/hr Piperacillin Sod/Tazobactam Sod (Zosyn 2.25 Gm Iv Premix) 2.25 gm in 50 mls @ 100 mls/hr IVPB Q6H [facility]; Protocol Last Admin: 07/17/18 02:56 Dose: 100 mls/hr Morphine Sulfate (Morphine) 2 mg IV Q6 PRN PRN Reason: Pain, moderate (4-7) Last Admin: 07/16/18 19:16 Dose: 2 mg - Labs Labs: 07/16/18 07:08 07/16/18 07:08 PT 15.4 SECONDS (9.7-12.2) H 07/13/18 18:31 INR 1.4 07/13/18 18:31 APTT 34.0 SECONDS (21-34) 07/13/18 18:31
--- NOTE | 2018-07-17 06:56 | CP.PCM.PN ---
Subjective - Date & Time of Evaluation Date of Evaluation: 07/17/18 Time of Evaluation: 06:56 - Subjective Subjective: Patient is still feeling increasingly weakness. Tiredness. Fatigue. Not able to eat. Episodes of nausea. But no vomiting so far. Abdominal pain on and off on the cramping noted Vital signs are stable. Chest bilateral good air entry Heart sounds are regular No fever now. Urine output is better. Currently on IV fluid. Patient admitted with severe weakness and tiredness and a positive symptoms of sepsis including fever. Patient was on TPN. Difficult time in taking anything by mouth because of the recurrent pancreatic mass. We will continue the current treatment and will follow the patient Overall currently patient is not doing well. She was also complaining of some throat pain. Cough. Continue with IV antibiotic. Bronchodilators. We will follow the patient Objective - Vital Signs/Intake and Output Vital Signs (last 24 hours): Temp Pulse Resp BP Pulse Ox 98.6 F 77 20 103/59 L 98 07/17/18 00:00 07/17/18 00:00 07/17/18 00:00 07/17/18 00:00 07/17/18 00:00 Intake and Output: 07/16/18 07/17/18 18:59 06:59 Intake Total 900 1000 Balance 900 1000 - Medications Medications: Current Medications Famotidine (Pepcid) 20 mg IVP Q12 [facility] Last Admin: 07/16/18 22:09 Dose: 20 mg Heparin Sodium (Porcine) (Heparin) 5,000 units SC Q8 [facility] Last Admin: 07/17/18 06:14 Dose: Not Given Dextrose/Sodium Chloride (Dextrose 5%/0.9% Ns 1000 Ml) 1,000 mls @ 100 mls/hr IV .Q10H [facility] Last Admin: 07/17/18 06:25 Dose: 100 mls/hr Piperacillin Sod/Tazobactam Sod (Zosyn 2.25 Gm Iv Premix) 2.25 gm in 50 mls @ 100 mls/hr IVPB Q6H [facility]; Protocol Last Admin: 07/17/18 02:56 Dose: 100 mls/hr Morphine Sulfate (Morphine) 2 mg IV Q6 PRN PRN Reason: Pain, moderate (4-7) Last Admin: 07/16/18 19:16 Dose: 2 mg - Labs Labs: 07/16/18 07:08 07/16/18 07:08 PT 15.4 SECONDS (9.7-12.2) H 07/13/18 18:31 INR 1.4 07/13/18 18:31 APTT 34.0 SECONDS (21-34) 07/13/18 18:31
[2018-07-17] MEDS: Morphine 4 MG/ML VIAL IV PRN (11:59)
[2018-07-17] MEDS: Albuterol-Ipratrop 3 mg / 0.5 (3 ml) UD INH SCH ×2 (16:54→20:39)
[2018-07-18] MEDS: Dextrose 5%/0.9% NS 1,000 ML IV SCH ×4 (00:59→21:59)
[2018-07-18] MEDS ORDERED: DiphenhydrAMINE 50 mg/ml Inj IVP STA (01:06)
[2018-07-18] MEDS: Piperacill/Tazo 2.25gm in Dex 2.25 GM/50 ML BAG IVPB SCH ×4 (02:08→22:35)
[2018-07-18] MEDS: Albuterol-Ipratrop 3 mg / 0.5 (3 ml) UD INH SCH ×4 (08:41→20:28)
[2018-07-18] MEDS: Morphine 4 MG/ML VIAL IV PRN ×2 (09:17→20:04)
[2018-07-18] MEDS: guaiFENesin 100 mg/5 ml Syrup UD PO PRN ×2 (14:25→20:26)
[2018-07-18] MEDS: Hemorrohoidal Ointment (2 oz) TOP PRN (22:36)
[2018-07-19] MEDS: Albuterol-Ipratrop 3 mg / 0.5 (3 ml) UD INH SCH ×5 (00:52→15:48)
[2018-07-19] MEDS: Piperacill/Tazo 2.25gm in Dex 2.25 GM/50 ML BAG IVPB SCH (02:27)
[2018-07-19] MEDS: Hemorrohoidal Ointment (2 oz) TOP PRN ×2 (06:53→23:06)
[2018-07-19] MEDS: Dextrose 5%/0.9% NS 1,000 ML IV SCH ×4 (08:00→22:59)
[2018-07-19] MEDS: Morphine 4 MG/ML VIAL IV PRN ×2 (10:58→18:53)
[2018-07-19] MEDS: guaiFENesin 100 mg/5 ml Syrup UD PO PRN ×2 (15:11→23:13)
--- NOTE | 2018-07-19 17:57 | CP.PCM.PN ---
Subjective - Date & Time of Evaluation Date of Evaluation: 07/19/18 Time of Evaluation: 17:56 - Subjective Subjective: Patient is now feeling still weak and tired and fatigued. Vomiting nausea noted. I spoke to the family in detail about overall prognosis. Patient's overall condition is very poor Advanced metastatic pancreatic cancer. Recommended palliative care, but the patient is currently on TPN. We will continue the current treatment possible discharge plan if stable Objective - Vital Signs/Intake and Output Vital Signs (last 24 hours): Temp Pulse Resp BP Pulse Ox 98.6 F 66 20 133/81 97 07/19/18 16:00 07/19/18 16:00 07/19/18 16:00 07/19/18 16:00 07/19/18 16:00 Intake and Output: 07/19/18 07/19/18 06:59 18:59 Intake Total 1600 Balance 1600 - Medications Medications: Current Medications Albuterol/Ipratropium (Duoneb 3 Mg/0.5 Mg (3 Ml) Ud) 3 ml INH RQ4 [facility] Last Admin: 07/19/18 15:48 Dose: Not Given Famotidine (Pepcid) 20 mg IVP Q12 [facility] Last Admin: 07/19/18 09:23 Dose: 20 mg Guaifenesin (Robitussin) 100 mg PO Q4H PRN PRN Reason: Cough Last Admin: 07/19/18 15:11 Dose: 100 mg Dextrose/Sodium Chloride (Dextrose 5%/0.9% Ns 1000 Ml) 1,000 mls @ 100 mls/hr IV .Q10H [facility] Last Admin: 07/19/18 14:31 Dose: 100 mls/hr Morphine Sulfate (Morphine) 2 mg IV Q6 PRN PRN Reason: Pain, moderate (4-7) Last Admin: 07/19/18 10:58 Dose: 2 mg Multi-Ingredient Ointment (Prep-Hem) 0 ea TOP BID PRN PRN Reason: Hemorrhoids Last Admin: 07/19/18 06:53 Dose: 1 applic - Labs Labs: 07/16/18 07:08 07/16/18 07:08 PT 15.4 SECONDS (9.7-12.2) H 07/13/18 18:31 INR 1.4 07/13/18 18:31 APTT 34.0 SECONDS (21-34) 07/13/18 18:31
[2018-07-20] MEDS: Albuterol-Ipratrop 3 mg / 0.5 (3 ml) UD INH SCH ×5 (00:53→20:11)
[2018-07-20] MEDS: Dextrose 5%/0.9% NS 1,000 ML IV SCH ×3 (04:00→13:43)
[2018-07-20] MEDS: Morphine 4 MG/ML VIAL IV PRN ×3 (07:20→20:02)
[2018-07-20] MEDS: Hemorrohoidal Ointment (2 oz) TOP PRN ×2 (10:01→22:12)
[2018-07-20 12:01] LABS: BASO # 0.2 K/uL (0.0-0.2); BASO % 1.1 % (0.0-2.0); EOS # 1.8 K/uL (0.0-0.7); EOS % 11.4 % (0.0-4.0); HEMOGLOBIN 9.2 g/dL (11.0-16.0); LYMPH # 1.1 K/uL (1.0-4.3); LYMPH % 6.8 % (20.0-40.0); MEAN CELL VOLUME 80.2 fL (81.0-99.0); MEAN CORPUSCULAR HEMOGLOBIN 27.3 pg (27.0-31.0); MONO # 1.3 K/uL (0.0-0.8); MONO % 8.1 % (0.0-10.0); NEUT # 11.5 K/uL (1.8-7.0); NEUT % 72.6 % (50.0-75.0); PLATELET COUNT 427 K/uL (130-400); RBC 3.36 Mil/uL (3.80-5.20); RED CELL DISTRIBUTION WIDTH 19.1 % (11.5-14.5); WHITE BLOOD COUNT 15.8 K/uL (4.8-10.8)
[2018-07-20 12:15] LABS: BLOOD UREA NITROGEN < 2 mg/dL (7-17); CALCIUM 7.8 mg/dl (8.6-10.4); GFR NON-AFRICAN AMERICAN > 60
[2018-07-20 12:24] LABS: ANISOCYTOSIS MODERATE; EOSINOPHIL 12 % (0-4); HYPOCHROMIC SLIGHT; LYMPHOCYTE 6 % (20-40); MONOCYTE 6 % (0-10); NEUTROPHIL 75 % (50-75); PLATELET ESTIMATE SLIGHTLY INCREASED (NORMAL); REACTIVE LYMPHOCYTES 1 % (0-0); TOTAL CELLS COUNTED 100
[2018-07-20] MEDS: Magnesium Sulfate 1 gm in D5W 1 GM/100 ML BAG IVPB SCH ×2 (14:41→15:44)
--- NOTE | 2018-07-20 21:14 | CP.PCM.PN ---
Subjective - Date & Time of Evaluation Date of Evaluation: 07/20/18 Time of Evaluation: 21:13 - Subjective Subjective: Patient is morning was feeling weak and tired. I was in the process of discharging her. I spoke to the patient's medical office assistant this morning also. Letter the labs noted to have a very low potassium and magnesium. It was supplemented by the [employer] this morning. We will continue to monitor. Repeat the labs tomorrow. If it is normal possible discharge plan Objective - Vital Signs/Intake and Output Vital Signs (last 24 hours): Temp Pulse Resp BP Pulse Ox 97.9 F 69 20 157/80 H 97 07/20/18 16:02 07/20/18 16:02 07/20/18 16:02 07/20/18 16:02 07/20/18 16:02 Intake and Output: 07/20/18 07/21/18 18:59 06:59 Intake Total 800 Balance 800 - Medications Medications: Current Medications Albuterol/Ipratropium (Duoneb 3 Mg/0.5 Mg (3 Ml) Ud) 3 ml INH RQ4 [facility] Last Admin: 07/20/18 20:11 Dose: Not Given Famotidine (Pepcid) 20 mg IVP Q12 [facility] Last Admin: 07/20/18 09:33 Dose: 20 mg Guaifenesin (Robitussin) 100 mg PO Q4H PRN PRN Reason: Cough Last Admin: 07/19/18 23:13 Dose: 100 mg Dextrose/Sodium Chloride (Dextrose 5%/0.9% Ns 1000 Ml) 1,000 mls @ 100 mls/hr IV .Q10H [facility] Last Admin: 07/20/18 13:43 Dose: Not Given Morphine Sulfate (Morphine) 2 mg IV Q6 PRN PRN Reason: Pain, moderate (4-7) Multi-Ingredient Ointment (Prep-Hem) 0 ea TOP BID PRN PRN Reason: Hemorrhoids Last Admin: 07/20/18 10:01 Dose: 1 applic Ondansetron HCl (Zofran Inj) 4 mg IVP Q8H PRN PRN Reason: Nausea/Vomiting Last Admin: 07/20/18 19:30 Dose: 4 mg - Labs Labs: 07/20/18 11:55 07/20/18 11:55 PT 15.4 SECONDS (9.7-12.2) H 07/13/18 18:31 INR 1.4 07/13/18 18:31 APTT 34.0 SECONDS (21-34) 07/13/18 18:31
[2018-07-21] MEDS: Albuterol-Ipratrop 3 mg / 0.5 (3 ml) UD INH SCH ×6 (00:20→20:39)
[2018-07-21] MEDS: Dextrose 5%/0.9% NS 1,000 ML IV SCH ×4 (02:00→16:23)
[2018-07-21 07:42] LABS: BASO # 0.2 K/uL (0.0-0.2); BASO % 1.1 % (0.0-2.0); EOS # 1.8 K/uL (0.0-0.7); EOS % 12.8 % (0.0-4.0); HEMOGLOBIN 8.6 g/dL (11.0-16.0); LYMPH % 7.2 % (20.0-40.0); MEAN CELL VOLUME 80.6 fL (81.0-99.0); MEAN CORPUSCULAR HEMOGLOBIN 26.6 pg (27.0-31.0); MEAN PLATELET VOLUME 6.8 fL (7.2-11.7); MONO # 0.9 K/uL (0.0-0.8); MONO % 6.4 % (0.0-10.0); NEUT # 10.1 K/uL (1.8-7.0); NEUT % 72.5 % (50.0-75.0); PLATELET COUNT 391 K/uL (130-400); RBC 3.24 Mil/uL (3.80-5.20); RED CELL DISTRIBUTION WIDTH 19.1 % (11.5-14.5); WHITE BLOOD COUNT 13.9 K/uL (4.8-10.8)
[2018-07-21 07:47] LABS: BLOOD UREA NITROGEN < 2 mg/dL (7-17); CALCIUM 7.7 mg/dl (8.6-10.4); GFR NON-AFRICAN AMERICAN > 60
[2018-07-21] MEDS ORDERED: Potassium Chloride 20 mEq/15 ml LIQ UD PO ONE (08:30)
[2018-07-21 10:11] LABS: TOTAL CELLS COUNTED 100
[2018-07-21 10:13] LABS: ANISOCYTOSIS MODERATE; EOSINOPHIL 11 % (0-4); HYPOCHROMIC SLIGHT; LYMPHOCYTE 7 % (20-40); MONOCYTE 6 % (0-10); NEUTROPHIL 76 % (50-75); OVALOCYTES SLIGHT; PLATELET ESTIMATE NORMAL (NORMAL)
[2018-07-21] MEDS: Hemorrohoidal Ointment (2 oz) TOP PRN (10:18)
--- NOTE | 2018-07-21 22:10 | CP.PCM.PN ---
Subjective - Date & Time of Evaluation Date of Evaluation: 07/21/18 Time of Evaluation: 22:07 - Subjective Subjective: Patient now complaining of nausea. Vomiting. Few episodes. Unable to eat. She is feeling depressed also. Electrolytes supplemented. We will continue to monitor. We will change IV fluid to DrCynthia tomorrow. I will discuss with the oncologist and possible discharge plan after that if the labs ok Objective - Vital Signs/Intake and Output Vital Signs (last 24 hours): Temp Pulse Resp BP Pulse Ox 98.3 F 71 20 123/71 97 07/21/18 17:43 07/21/18 17:43 07/21/18 17:43 07/21/18 17:43 07/21/18 17:43 Intake and Output: 07/21/18 07/22/18 18:59 06:59 Intake Total 800 Balance 800 - Medications Medications: Current Medications Albuterol/Ipratropium (Duoneb 3 Mg/0.5 Mg (3 Ml) Ud) 3 ml INH RQ4 [facility] Last Admin: 07/21/18 20:39 Dose: Not Given Famotidine (Pepcid) 20 mg IVP Q12 [facility] Last Admin: 07/21/18 21:26 Dose: 20 mg Guaifenesin (Robitussin) 100 mg PO Q4H PRN PRN Reason: Cough Last Admin: 07/19/18 23:13 Dose: 100 mg Lactated Ringer's (Lactated Ringer's) 1,000 mls @ 75 mls/hr IV .[id number] [facility] Morphine Sulfate (Morphine) 2 mg IV Q6 PRN PRN Reason: Pain, moderate (4-7) Last Admin: 07/21/18 17:33 Dose: 2 mg Multi-Ingredient Ointment (Prep-Hem) 0 ea TOP BID PRN PRN Reason: Hemorrhoids Last Admin: 07/21/18 10:18 Dose: 1 applic Ondansetron HCl (Zofran Inj) 4 mg IVP Q8H PRN PRN Reason: Nausea/Vomiting Last Admin: 07/21/18 20:31 Dose: 4 mg - Labs Labs: 07/21/18 07:25 07/21/18 07:25 PT 15.4 SECONDS (9.7-12.2) H 07/13/18 18:31 INR 1.4 07/13/18 18:31 APTT 34.0 SECONDS (21-34) 07/13/18 18:31
[2018-07-21] MEDS: Lactated Ringer's 1,000 ML IV SCH (22:56)
[2018-07-22] MEDS: Albuterol-Ipratrop 3 mg / 0.5 (3 ml) UD INH SCH ×5 (02:23→20:00)
[2018-07-22 07:00] LABS: BASO # 0.1 K/uL (0.0-0.2); BASO % 0.9 % (0.0-2.0); EOS # 1.4 K/uL (0.0-0.7); EOS % 9.3 % (0.0-4.0); HEMOGLOBIN 8.9 g/dL (11.0-16.0); LYMPH # 0.9 K/uL (1.0-4.3); LYMPH % 6.2 % (20.0-40.0); MEAN CELL VOLUME 79.7 fL (81.0-99.0); MEAN CORPUSCULAR HEMOGLOBIN 26.1 pg (27.0-31.0); MEAN CORPUSCULAR HGB CONC 32.8 g/dL (33.0-37.0); MEAN PLATELET VOLUME 6.9 fL (7.2-11.7); MONO # 1.1 K/uL (0.0-0.8); MONO % 7.2 % (0.0-10.0); NEUT # 11.6 K/uL (1.8-7.0); NEUT % 76.4 % (50.0-75.0); PLATELET COUNT 410 K/uL (130-400); RBC 3.41 Mil/uL (3.80-5.20); RED CELL DISTRIBUTION WIDTH 19.6 % (11.5-14.5); WHITE BLOOD COUNT 15.2 K/uL (4.8-10.8)
[2018-07-22 07:21] LABS: GFR NON-AFRICAN AMERICAN > 60
[2018-07-22 07:37] LABS: BLOOD UREA NITROGEN < 2 mg/dL (7-17)
[2018-07-22 08:35] LABS: BANDS 1 % (0-2); EOSINOPHIL 10 % (0-4); LYMPHOCYTE 3 % (20-40); MONOCYTE 5 % (0-10); NEUTROPHIL 81 % (50-75); PLATELET ESTIMATE SLIGHTLY INCREASED (NORMAL); TOTAL CELLS COUNTED 100
[2018-07-22 08:36] LABS: ANISOCYTOSIS MODERATE; HYPOCHROMIC SLIGHT; LARGE PLATELETS PRESENT; OVALOCYTES SLIGHT
[2018-07-22] MEDS: Magnesium Sulfate 1 gm in D5W 1 GM/100 ML BAG IVPB SCH ×2 (11:01→11:02)
[2018-07-22] MEDS: Lactated Ringer's 1,000 ML IV SCH (11:39)
[2018-07-22] MEDS ORDERED: Magnesium Sulfate 1 gm in D5W 1 GM/100 ML BAG IVPB SCH (14:45)
[2018-07-22] MEDS ORDERED: Enoxaparin 60 mg Syringe SC STA (22:06)
--- NOTE | 2018-07-22 22:41 | CP.PCM.PN ---
Subjective - Date & Time of Evaluation Date of Evaluation: 07/22/18 Time of Evaluation: 22:41 - Subjective Subjective: Patient was not able to tolerate the feeding by mouth. Increasingly nausea, increasingly vomiting noted. Abdominal pain also present. Patient is increasingly weak. I spoke to the patient's sister in detail. We will keep the patient n.p.o. Continue the IV fluid. On antibiotic. So far the culture is negative Objective - Vital Signs/Intake and Output Vital Signs (last 24 hours): Temp Pulse Resp BP Pulse Ox 99 F 74 20 148/84 95 07/22/18 15:47 07/22/18 15:47 07/22/18 15:47 07/22/18 15:47 07/22/18 15:47 Intake and Output: 07/22/18 07/23/18 18:59 06:59 Intake Total 600 Balance 600 - Medications Medications: Current Medications Albuterol/Ipratropium (Duoneb 3 Mg/0.5 Mg (3 Ml) Ud) 3 ml INH RQ4 [facility] Last Admin: 07/22/18 11:46 Dose: Not Given Enoxaparin Sodium (Lovenox) 60 mg SC Q12 [facility] Famotidine (Pepcid) 20 mg IVP Q12 [facility] Last Admin: 07/22/18 21:36 Dose: 20 mg Guaifenesin (Robitussin) 100 mg PO Q4H PRN PRN Reason: Cough Last Admin: 07/19/18 23:13 Dose: 100 mg Morphine Sulfate (Morphine) 2 mg IV Q6 PRN PRN Reason: Pain, moderate (4-7) Last Admin: 07/22/18 19:27 Dose: 2 mg Multi-Ingredient Ointment (Prep-Hem) 0 ea TOP BID PRN PRN Reason: Hemorrhoids Last Admin: 07/21/18 10:18 Dose: 1 applic Ondansetron HCl (Zofran Inj) 4 mg IVP Q8H PRN PRN Reason: Nausea/Vomiting Last Admin: 07/22/18 21:36 Dose: 4 mg - Labs Labs: 07/22/18 06:46 07/22/18 06:46 PT 15.4 SECONDS (9.7-12.2) H 07/13/18 18:31 INR 1.4 07/13/18 18:31 APTT 34.0 SECONDS (21-34) 07/13/18 18:31
[2018-07-23] MEDS: Albuterol-Ipratrop 3 mg / 0.5 (3 ml) UD INH SCH ×6 (00:36→19:18)
[2018-07-23] MEDS: Enoxaparin 60 mg Syringe SC SCH ×2 (09:51→22:02)
[2018-07-23 11:17] LABS: BASO # 0.1 K/uL (0.0-0.2); BASO % 0.8 % (0.0-2.0); EOS # 0.8 K/uL (0.0-0.7); LYMPH # 0.9 K/uL (1.0-4.3); LYMPH % 5.7 % (20.0-40.0); MEAN CORPUSCULAR HGB CONC 32.5 g/dL (33.0-37.0); MONO # 1.1 K/uL (0.0-0.8); NEUT # 12.7 K/uL (1.8-7.0); NEUT % 81.5 % (50.0-75.0); NRBC % 0.1 % (0.0-2.0); PLATELET COUNT 386 K/uL (130-400); RBC 3.44 Mil/uL (3.80-5.20); RED CELL DISTRIBUTION WIDTH 19.6 % (11.5-14.5); WHITE BLOOD COUNT 15.5 K/uL (4.8-10.8)
[2018-07-23 11:31] LABS: BLOOD UREA NITROGEN 3 mg/dL (7-17); CALCIUM 7.7 mg/dl (8.6-10.4); GFR NON-AFRICAN AMERICAN > 60
[2018-07-23 11:44] LABS: BANDS 2 % (0-2); EOSINOPHIL 6 % (0-4); LYMPHOCYTE 4 % (20-40); TOTAL CELLS COUNTED 100
[2018-07-23 11:45] LABS: ANISOCYTOSIS MODERATE; HYPOCHROMIC SLIGHT; MONOCYTE 5 % (0-10); NEUTROPHIL 83 % (50-75); PLATELET ESTIMATE NORMAL (NORMAL)
--- NOTE | 2018-07-23 14:12 | VASCLAB ---
Date of service: 07/22/2018 PROCEDURE: Lower Extremity Venous Duplex Exam. HISTORY: DVT PRIORS: None. TECHNIQUE: Bilateral common femoral, femoral, popliteal and posterior tibial, peroneal and great saphenous veins were evaluated. Flow was assessed with color Doppler, compressibility, assessment of phasic flow and augmentation response. Report prepared by MARYJANE Love FINDINGS: RIGHT: 1. Common Femoral Vein: 1.1. Compressibility - Fully compressible: Thrombus - None : Flow - Phasic: Augmentation -Normal: Reflux - None. 2. Femoral Vein: 2.1. Compressibility - Fully compressible: Thrombus - None : Flow - Phasic: Augmentation -Normal: Reflux - None. 3. Popliteal Vein: 3.1. Compressibility - Fully compressible: Thrombus - None : Flow - Phasic: Augmentation -Normal: Reflux - None. 4. Posterior Tibial Vein: 4.1. Compressibility - Fully compressible: Thrombus - None: Flow - Phasic: Augmentation -Normal: Reflux - None. 5. Peroneal Vein: 5.1. Compressibility - Incompressible: Thrombus - Acute: Flow - Reduced (ONE VEIN NOT COMPRESSIBLE) 6. Great Saphenous Vein: 6.1. Compressibility - Fully compressible: Thrombus - None: Flow - Phasic: Augmentation - Normal: Reflux - None. LEFT: 1. Common Femoral Vein: 1.1. Compressibility - Fully compressible: Thrombus - None: Flow - Phasic: Augmentation -Normal: Reflux - None. 2. Femoral Vein: 2.1. Compressibility - Fully compressible: Thrombus - None: Flow - Phasic: Augmentation -Normal: Reflux - None. 3. Popliteal Vein: 3.1. Compressibility - Fully compressible: Thrombus - None : Flow - Phasic: Augmentation -Normal: Reflux - None. 4. Posterior Tibial Vein: 4.1. Compressibility - Fully compressible: Thrombus - None: Flow - Phasic: Augmentation -Normal: Reflux - None. 5. Peroneal Vein: 5.1. Compressibility - Fully compressible: Thrombus - None: Flow - Phasic: Augmentation -Normal: Reflux - None. 6. Great Saphenous Vein: 6.1. Compressibility - Fully compressible: Thrombus - None: Flow - Phasic: Augmentation - Normal: Reflux - None. OTHER FINDINGS: Right: One of the paired peroneal veins was not compressible at the proximal to mid levels. IMPRESSION: Right: Acute deep vein thrombosis of one right peroneal vein with moderate reduction of the venous return. Findings were reported to Sergio Nunn at 3:18 p.m. Left: No evidence of deep or superficial vein thrombosis of the left lower extremity. Normal valve function noted of the left side.
[2018-07-24] MEDS: Albuterol-Ipratrop 3 mg / 0.5 (3 ml) UD INH SCH ×6 (00:08→19:02)
[2018-07-24] MEDS ORDERED: Dextrose 5%/0.9% NS 1,000 ML IV ONE (08:25)
[2018-07-24] MEDS: Enoxaparin 60 mg Syringe SC SCH ×2 (09:43→21:29)
[2018-07-24] MEDS: Dextrose 5%/0.9% NS 1,000 ML IV SCH ×2 (19:16→19:25)
[2018-07-24] MEDS: Hemorrohoidal Ointment (2 oz) TOP PRN (21:35)
[2018-07-25] MEDS: Albuterol-Ipratrop 3 mg / 0.5 (3 ml) UD INH SCH ×5 (00:30→20:12)
[2018-07-25] MEDS: Dextrose 5%/0.9% NS 1,000 ML IV SCH ×2 (05:00→16:45)
[2018-07-25] MEDS: Enoxaparin 60 mg Syringe SC SCH ×2 (09:35→21:02)
[2018-07-25] MEDS: HYDROmorphone 0.5 mg/0.5 ml ISec IVP SCH ×2 (16:57→20:57)
[2018-07-25] MEDS ORDERED: PPN #1 IV SCH (18:00)
[2018-07-25] MEDS ORDERED: Morphine 4 MG/ML VIAL IVP SCH (18:00)
[2018-07-26] MEDS: Albuterol-Ipratrop 3 mg / 0.5 (3 ml) UD INH SCH ×6 (00:44→19:17)
[2018-07-26] MEDS: HYDROmorphone 0.5 mg/0.5 ml ISec IVP SCH ×6 (00:45→19:40)
[2018-07-26] MEDS: Dextrose 5%/0.9% NS 1,000 ML IV SCH ×2 (09:59)
[2018-07-26] MEDS ORDERED: PPN #2 IV SCH (10:03)
[2018-07-26] MEDS: Enoxaparin 60 mg Syringe SC SCH ×2 (10:28→21:14)
[2018-07-26] MEDS ORDERED: PPN #3 IV ONE (18:00)
[2018-07-27] MEDS: Albuterol-Ipratrop 3 mg / 0.5 (3 ml) UD INH SCH ×6 (00:04→23:48)
[2018-07-27] MEDS: HYDROmorphone 0.5 mg/0.5 ml ISec IVP SCH ×6 (00:36→20:30)
[2018-07-27] MEDS ORDERED: PPN #4 IV ONE (10:00)
[2018-07-27] MEDS: Enoxaparin 60 mg Syringe SC SCH ×2 (10:04→22:02)
[2018-07-27] MEDS ORDERED: PPN #5 IV ONE (18:00)
--- NOTE | 2018-07-27 21:33 | CP.PCM.PN ---
Subjective - Date & Time of Evaluation Date of Evaluation: 07/23/18 Time of Evaluation: 21:33 - Subjective Subjective: Patient did not have any fever. Making urine. No bowel movements. No chest pain or shortness of breath. Retching and vomiting present. While he is vomiting present Unable to tolerate even the pills, she is vomiting the pills also. We will continue with IV fluid and antibiotic. Patient is a 62-year-old female with advanced metastatic pancreatic cancer. Diabetes. Cardiomyopathy. Right leg swelling noted. DVT. On anticoagulation with Lovenox Objective - Vital Signs/Intake and Output Vital Signs (last 24 hours): Temp Pulse Resp BP Pulse Ox 98.4 F 86 20 153/88 H 97 07/27/18 15:00 07/27/18 15:00 07/27/18 15:00 07/27/18 15:00 07/27/18 15:00 Intake and Output: 07/27/18 07/28/18 18:59 06:59 Intake Total 504 Balance 504 - Medications Medications: Current Medications Albuterol/Ipratropium (Duoneb 3 Mg/0.5 Mg (3 Ml) Ud) 3 ml INH RQ4 [facility] Last Admin: 07/27/18 11:14 Dose: Not Given Enoxaparin Sodium (Lovenox) 60 mg SC Q12 [facility] Last Admin: 07/27/18 10:04 Dose: 60 mg Famotidine (Pepcid) 20 mg IVP Q12 [facility] Last Admin: 07/27/18 10:04 Dose: 20 mg Guaifenesin (Robitussin) 100 mg PO Q4H PRN PRN Reason: Cough Last Admin: 07/19/18 23:13 Dose: 100 mg Hydromorphone HCl (Dilaudid) 0.5 mg IVP Q4H [facility] Last Admin: 07/27/18 20:30 Dose: 0.5 mg Amino Acids (Clinimix 4.25/5 % "E" (1000 Ml)) 1,000 mls @ 63 mls/hr IV .[id number] ONE Stop: 07/28/18 01:52 Last Admin: 07/27/18 10:04 Dose: 63 mls/hr Multivitamins/Vitamin C 10 ml/Chromium/Copper/Manganese/Zinc 1 ml/ Amino Acids 1,011 mls @ 63 mls/hr IV .[id number] ONE Stop: 07/28/18 10:02 Last Admin: 07/27/18 18:12 Dose: 63 mls/hr Amino Acids (Clinimix 4.25/5 % "E" (1000 Ml)) 1,000 mls @ 63 mls/hr IV .[id number] ONE Stop: 07/29/18 01:52 Multi-Ingredient Ointment (Prep-Hem) 0 ea TOP BID PRN PRN Reason: Hemorrhoids Last Admin: 07/24/18 21:35 Dose: 1 applic Ondansetron HCl (Zofran Inj) 4 mg IVP Q8H PRN PRN Reason: Nausea/Vomiting Last Admin: 07/23/18 11:25 Dose: 4 mg - Labs Labs: 07/23/18 11:12 07/23/18 11:12 PT 15.4 SECONDS (9.7-12.2) H 07/13/18 18:31 INR 1.4 07/13/18 18:31 APTT 34.0 SECONDS (21-34) 07/13/18 18:31
--- NOTE | 2018-07-27 21:33 | CP.PCM.PN ---
Subjective - Date & Time of Evaluation Date of Evaluation: 07/24/18 Time of Evaluation: 21:33 - Subjective Subjective: Patient is currently getting the morphine injection. But unable to tolerate the pain. I spoke to the patient regarding the feeding. We will start the possibly PPN tomorrow We will continue the current treatment Objective - Vital Signs/Intake and Output Vital Signs (last 24 hours): Temp Pulse Resp BP Pulse Ox 98.4 F 86 20 153/88 H 97 07/27/18 15:00 07/27/18 15:00 07/27/18 15:00 07/27/18 15:00 07/27/18 15:00 Intake and Output: 07/27/18 07/28/18 18:59 06:59 Intake Total 504 Balance 504 - Medications Medications: Current Medications Albuterol/Ipratropium (Duoneb 3 Mg/0.5 Mg (3 Ml) Ud) 3 ml INH RQ4 [facility] Last Admin: 07/27/18 11:14 Dose: Not Given Enoxaparin Sodium (Lovenox) 60 mg SC Q12 [facility] Last Admin: 07/27/18 10:04 Dose: 60 mg Famotidine (Pepcid) 20 mg IVP Q12 [facility] Last Admin: 07/27/18 10:04 Dose: 20 mg Guaifenesin (Robitussin) 100 mg PO Q4H PRN PRN Reason: Cough Last Admin: 07/19/18 23:13 Dose: 100 mg Hydromorphone HCl (Dilaudid) 0.5 mg IVP Q4H [facility] Last Admin: 07/27/18 20:30 Dose: 0.5 mg Amino Acids (Clinimix 4.25/5 % "E" (1000 Ml)) 1,000 mls @ 63 mls/hr IV .[id number] ONE Stop: 07/28/18 01:52 Last Admin: 07/27/18 10:04 Dose: 63 mls/hr Multivitamins/Vitamin C 10 ml/Chromium/Copper/Manganese/Zinc 1 ml/ Amino Acids 1,011 mls @ 63 mls/hr IV .Q16H3M ONE Stop: 07/28/18 10:02 Last Admin: 07/27/18 18:12 Dose: 63 mls/hr Amino Acids (Clinimix 4.25/5 % "E" (1000 Ml)) 1,000 mls @ 63 mls/hr IV .[id number] ONE Stop: 07/29/18 01:52 Multi-Ingredient Ointment (Prep-Hem) 0 ea TOP BID PRN PRN Reason: Hemorrhoids Last Admin: 07/24/18 21:35 Dose: 1 applic Ondansetron HCl (Zofran Inj) 4 mg IVP Q8H PRN PRN Reason: Nausea/Vomiting Last Admin: 07/23/18 11:25 Dose: 4 mg - Labs Labs: 07/23/18 11:12 07/23/18 11:12 PT 15.4 SECONDS (9.7-12.2) H 07/13/18 18:31 INR 1.4 07/13/18 18:31 APTT 34.0 SECONDS (21-34) 07/13/18 18:31
--- NOTE | 2018-07-27 21:33 | CP.PCM.PN ---
Subjective - Date & Time of Evaluation Date of Evaluation: 07/25/18 Time of Evaluation: 21:33 - Subjective Subjective: The pain medication was changing to Dilaudid. Patient is tolerating the pain well. Less vomiting less nausea now. Started on PPN today. We will continue the current treatment Objective - Vital Signs/Intake and Output Vital Signs (last 24 hours): Temp Pulse Resp BP Pulse Ox 98.4 F 86 20 153/88 H 97 07/27/18 15:00 07/27/18 15:00 07/27/18 15:00 07/27/18 15:00 07/27/18 15:00 Intake and Output: 07/27/18 07/28/18 18:59 06:59 Intake Total 504 Balance 504 - Medications Medications: Current Medications Albuterol/Ipratropium (Duoneb 3 Mg/0.5 Mg (3 Ml) Ud) 3 ml INH RQ4 [facility] Last Admin: 07/27/18 11:14 Dose: Not Given Enoxaparin Sodium (Lovenox) 60 mg SC Q12 [facility] Last Admin: 07/27/18 10:04 Dose: 60 mg Famotidine (Pepcid) 20 mg IVP Q12 [facility] Last Admin: 07/27/18 10:04 Dose: 20 mg Guaifenesin (Robitussin) 100 mg PO Q4H PRN PRN Reason: Cough Last Admin: 07/19/18 23:13 Dose: 100 mg Hydromorphone HCl (Dilaudid) 0.5 mg IVP Q4H [facility] Last Admin: 07/27/18 20:30 Dose: 0.5 mg Amino Acids (Clinimix 4.25/5 % "E" (1000 Ml)) 1,000 mls @ 63 mls/hr IV .[id number] ONE Stop: 07/28/18 01:52 Last Admin: 07/27/18 10:04 Dose: 63 mls/hr Multivitamins/Vitamin C 10 ml/Chromium/Copper/Manganese/Zinc 1 ml/ Amino Acids 1,011 mls @ 63 mls/hr IV .[id number] ONE Stop: 07/28/18 10:02 Last Admin: 07/27/18 18:12 Dose: 63 mls/hr Amino Acids (Clinimix 4.25/5 % "E" (1000 Ml)) 1,000 mls @ 63 mls/hr IV .[id number] ONE Stop: 07/29/18 01:52 Multi-Ingredient Ointment (Prep-Hem) 0 ea TOP BID PRN PRN Reason: Hemorrhoids Last Admin: 07/24/18 21:35 Dose: 1 applic Ondansetron HCl (Zofran Inj) 4 mg IVP Q8H PRN PRN Reason: Nausea/Vomiting Last Admin: 07/23/18 11:25 Dose: 4 mg - Labs Labs: 07/23/18 11:12 07/23/18 11:12 PT 15.4 SECONDS (9.7-12.2) H 07/13/18 18:31 INR 1.4 07/13/18 18:31 APTT 34.0 SECONDS (21-34) 07/13/18 18:31
--- NOTE | 2018-07-27 21:34 | CP.PCM.PN ---
Subjective - Date & Time of Evaluation Date of Evaluation: 07/26/18 Time of Evaluation: 21:33 - Subjective Subjective: Patient is looking slightly better today. Less vomiting, less nausea. Unable to take the medications by mouth yet. Right leg swelling noted. Tolerating the pPN now. We will continue the current treatment at this time. Objective - Vital Signs/Intake and Output Vital Signs (last 24 hours): Temp Pulse Resp BP Pulse Ox 98.4 F 86 20 153/88 H 97 07/27/18 15:00 07/27/18 15:00 07/27/18 15:00 07/27/18 15:00 07/27/18 15:00 Intake and Output: 07/27/18 07/28/18 18:59 06:59 Intake Total 504 Balance 504 - Medications Medications: Current Medications Albuterol/Ipratropium (Duoneb 3 Mg/0.5 Mg (3 Ml) Ud) 3 ml INH RQ4 [facility] Last Admin: 07/27/18 11:14 Dose: Not Given Enoxaparin Sodium (Lovenox) 60 mg SC Q12 [facility] Last Admin: 07/27/18 10:04 Dose: 60 mg Famotidine (Pepcid) 20 mg IVP Q12 [facility] Last Admin: 07/27/18 10:04 Dose: 20 mg Guaifenesin (Robitussin) 100 mg PO Q4H PRN PRN Reason: Cough Last Admin: 07/19/18 23:13 Dose: 100 mg Hydromorphone HCl (Dilaudid) 0.5 mg IVP Q4H [facility] Last Admin: 07/27/18 20:30 Dose: 0.5 mg Amino Acids (Clinimix 4.25/5 % "E" (1000 Ml)) 1,000 mls @ 63 mls/hr IV .[id number] ONE Stop: 07/28/18 01:52 Last Admin: 07/27/18 10:04 Dose: 63 mls/hr Multivitamins/Vitamin C 10 ml/Chromium/Copper/Manganese/Zinc 1 ml/ Amino Acids 1,011 mls @ 63 mls/hr IV .Q16H3M ONE Stop: 07/28/18 10:02 Last Admin: 07/27/18 18:12 Dose: 63 mls/hr Amino Acids (Clinimix 4.25/5 % "E" (1000 Ml)) 1,000 mls @ 63 mls/hr IV .[id number] ONE Stop: 07/29/18 01:52 Multi-Ingredient Ointment (Prep-Hem) 0 ea TOP BID PRN PRN Reason: Hemorrhoids Last Admin: 07/24/18 21:35 Dose: 1 applic Ondansetron HCl (Zofran Inj) 4 mg IVP Q8H PRN PRN Reason: Nausea/Vomiting Last Admin: 07/23/18 11:25 Dose: 4 mg - Labs Labs: 07/23/18 11:12 07/23/18 11:12 PT 15.4 SECONDS (9.7-12.2) H 07/13/18 18:31 INR 1.4 07/13/18 18:31 APTT 34.0 SECONDS (21-34) 07/13/18 18:31
--- NOTE | 2018-07-27 21:34 | CP.PCM.PN ---
Subjective - Date & Time of Evaluation Date of Evaluation: 07/27/18 Time of Evaluation: 21:34 - Subjective Subjective: I examined the patient today. Patient is somewhat feeling much better. Less nausea, less vomiting. Currently on Dilaudid injection. PPN currently running. We will repeat the labs tomorrow. I spoke to the patient about the possible discharge plan. Tomorrow I want the patient to be out of bed to chair. Ambulation. Physical therapy. If the patient is stable enough to stand up and walk, possible discharge plan. She will continue her TPN. No antibiotic needed at this time. Objective - Vital Signs/Intake and Output Vital Signs (last 24 hours): Temp Pulse Resp BP Pulse Ox 98.4 F 86 20 153/88 H 97 07/27/18 15:00 07/27/18 15:00 07/27/18 15:00 07/27/18 15:00 07/27/18 15:00 Intake and Output: 07/27/18 07/28/18 18:59 06:59 Intake Total 504 Balance 504 - Medications Medications: Current Medications Albuterol/Ipratropium (Duoneb 3 Mg/0.5 Mg (3 Ml) Ud) 3 ml INH RQ4 [facility] Last Admin: 07/27/18 11:14 Dose: Not Given Enoxaparin Sodium (Lovenox) 60 mg SC Q12 [facility] Last Admin: 07/27/18 10:04 Dose: 60 mg Famotidine (Pepcid) 20 mg IVP Q12 [facility] Last Admin: 07/27/18 10:04 Dose: 20 mg Guaifenesin (Robitussin) 100 mg PO Q4H PRN PRN Reason: Cough Last Admin: 07/19/18 23:13 Dose: 100 mg Hydromorphone HCl (Dilaudid) 0.5 mg IVP Q4H [facility] Last Admin: 07/27/18 20:30 Dose: 0.5 mg Amino Acids (Clinimix 4.25/5 % "E" (1000 Ml)) 1,000 mls @ 63 mls/hr IV .[id number] ONE Stop: 07/28/18 01:52 Last Admin: 07/27/18 10:04 Dose: 63 mls/hr Multivitamins/Vitamin C 10 ml/Chromium/Copper/Manganese/Zinc 1 ml/ Amino Acids 1,011 mls @ 63 mls/hr IV .Q16H3M ONE Stop: 07/28/18 10:02 Last Admin: 07/27/18 18:12 Dose: 63 mls/hr Amino Acids (Clinimix 4.25/5 % "E" (1000 Ml)) 1,000 mls @ 63 mls/hr IV .[id number] ONE Stop: 07/29/18 01:52 Multi-Ingredient Ointment (Prep-Hem) 0 ea TOP BID PRN PRN Reason: Hemorrhoids Last Admin: 07/24/18 21:35 Dose: 1 applic Ondansetron HCl (Zofran Inj) 4 mg IVP Q8H PRN PRN Reason: Nausea/Vomiting Last Admin: 07/23/18 11:25 Dose: 4 mg - Labs Labs: 07/23/18 11:12 07/23/18 11:12 PT 15.4 SECONDS (9.7-12.2) H 07/13/18 18:31 INR 1.4 07/13/18 18:31 APTT 34.0 SECONDS (21-34) 07/13/18 18:31
[2018-07-28] MEDS: HYDROmorphone 0.5 mg/0.5 ml ISec IVP SCH ×6 (00:29→20:36)
[2018-07-28] MEDS: Albuterol-Ipratrop 3 mg / 0.5 (3 ml) UD INH SCH ×5 (03:10→20:13)
[2018-07-28 07:43] LABS: BASO # 0.1 K/uL (0.0-0.2); BASO % 0.7 % (0.0-2.0); EOS # 0.6 K/uL (0.0-0.7); EOS % 4.4 % (0.0-4.0); HEMOGLOBIN 8.1 g/dL (11.0-16.0); LYMPH # 0.7 K/uL (1.0-4.3); LYMPH % 5.3 % (20.0-40.0); MEAN CELL VOLUME 79.7 fL (81.0-99.0); MEAN CORPUSCULAR HEMOGLOBIN 26.2 pg (27.0-31.0); MEAN CORPUSCULAR HGB CONC 32.9 g/dL (33.0-37.0); MEAN PLATELET VOLUME 7.2 fL (7.2-11.7); MONO # 0.9 K/uL (0.0-0.8); MONO % 6.4 % (0.0-10.0); NEUT # 11.7 K/uL (1.8-7.0); NEUT % 83.2 % (50.0-75.0); PLATELET COUNT 334 K/uL (130-400); RBC 3.08 Mil/uL (3.80-5.20); RED CELL DISTRIBUTION WIDTH 20.4 % (11.5-14.5); WHITE BLOOD COUNT 14.1 K/uL (4.8-10.8)
[2018-07-28 08:29] LABS: ALB/GLOB RATIO 0.8 (1.0-2.1); ALBUMIN 2.2 g/dL (3.5-5.0); ALT/SGPT 35 U/L (9-52); AST/SGOT 83 U/L (14-36); BLOOD UREA NITROGEN 10 mg/dL (7-17); CALCIUM 7.8 mg/dl (8.6-10.4); GFR NON-AFRICAN AMERICAN > 60
[2018-07-28] MEDS ORDERED: PPN #6 IV ONE (10:00)
[2018-07-28 10:42] LABS: ANISOCYTOSIS MODERATE; EOSINOPHIL 5 % (0-4); LYMPHOCYTE 5 % (20-40); MONOCYTE 5 % (0-10); NEUTROPHIL 85 % (50-75); PLATELET ESTIMATE NORMAL (NORMAL); TOTAL CELLS COUNTED 100
[2018-07-28 10:43] LABS: HYPOCHROMIC SLIGHT
[2018-07-28] MEDS: Enoxaparin 60 mg Syringe SC SCH ×2 (10:57→21:10)
[2018-07-28] MEDS: Multiple Vitamins Oral Solution PO SCH (10:59)
[2018-07-28] MEDS ORDERED: PPN #7 IV ONE (18:00)
--- NOTE | 2018-07-28 21:49 | CP.PCM.PN ---
Subjective - Date & Time of Evaluation Date of Evaluation: 07/28/18 Time of Evaluation: 21:49 - Subjective Subjective: Patient is in lots of pain. She is not able to tolerate the oral medications. Vomiting noted. We will continue the current treatment and will follow the patient Objective - Vital Signs/Intake and Output Vital Signs (last 24 hours): Temp Pulse Resp BP Pulse Ox 98.2 F 88 20 139/86 97 07/28/18 16:46 07/28/18 16:46 07/28/18 16:46 07/28/18 16:46 07/28/18 16:46 Intake and Output: 07/28/18 07/29/18 18:59 06:59 Intake Total 624 Balance 624 - Medications Medications: Current Medications Albuterol/Ipratropium (Duoneb 3 Mg/0.5 Mg (3 Ml) Ud) 3 ml INH RQ4 [facility] Last Admin: 07/28/18 20:13 Dose: Not Given Enoxaparin Sodium (Lovenox) 60 mg SC Q12 [facility] Last Admin: 07/28/18 21:10 Dose: 60 mg Famotidine (Pepcid) 20 mg PO DAILY [facility] Last Admin: 07/28/18 10:57 Dose: 20 mg Guaifenesin (Robitussin) 100 mg PO Q4H PRN PRN Reason: Cough Last Admin: 07/19/18 23:13 Dose: 100 mg Hydromorphone HCl (Dilaudid) 0.5 mg IVP Q4H [facility] Last Admin: 07/28/18 20:36 Dose: 0.5 mg Amino Acids (Clinimix 4.25/5 % "E" (1000 Ml)) 1,000 mls @ 63 mls/hr IV .[id number] ONE Stop: 07/29/18 01:52 Last Admin: 07/28/18 10:58 Dose: 63 mls/hr Multivitamins/Vitamin C 10 ml/Chromium/Copper/Manganese/Zinc 1 ml/ Amino Acids 1,011 mls @ 63 mls/hr IV .Q16H3M ONE Stop: 07/29/18 10:02 Last Admin: 07/28/18 18:49 Dose: 63 mls/hr Amino Acids (Clinimix 4.25/5 % "E" (1000 Ml)) 1,000 mls @ 63 mls/hr IV .[id number] [facility] Stop: 07/29/18 17:59 Multi-Ingredient Ointment (Prep-Hem) 0 ea TOP BID PRN PRN Reason: Hemorrhoids Last Admin: 07/24/18 21:35 Dose: 1 applic Multivitamins/Vitamin C (Multi-Delyn Liquid) 5 ml PO DAILY [facility] Last Admin: 07/28/18 10:59 Dose: 5 ml Ondansetron HCl (Zofran Inj) 4 mg IVP Q8H PRN PRN Reason: Nausea/Vomiting Last Admin: 07/23/18 11:25 Dose: 4 mg - Labs Labs: 07/28/18 07:35 07/28/18 07:35 PT 15.4 SECONDS (9.7-12.2) H 07/13/18 18:31 INR 1.4 07/13/18 18:31 APTT 34.0 SECONDS (21-34) 07/13/18 18:31
[2018-07-29] MEDS: Albuterol-Ipratrop 3 mg / 0.5 (3 ml) UD INH SCH ×6 (00:16→20:26)
[2018-07-29] MEDS: HYDROmorphone 0.5 mg/0.5 ml ISec IVP SCH ×6 (00:30→20:31)
[2018-07-29] MEDS ORDERED: PPN #8 IV SCH (10:03)
[2018-07-29] MEDS: Enoxaparin 60 mg Syringe SC SCH ×2 (10:10→21:27)
[2018-07-29] MEDS: Multiple Vitamins Oral Solution PO SCH (10:11)
[2018-07-29] MEDS ORDERED: Calcium Gluconate 4.65 mEq/10 ml Inj IVPB ONE (17:09)
[2018-07-29 17:30] LABS: HEMOGLOBIN 7.5 g/dL (11.0-16.0); MEAN CELL VOLUME 77.5 fL (81.0-99.0); MEAN CORPUSCULAR HEMOGLOBIN 25.3 pg (27.0-31.0); MEAN CORPUSCULAR HGB CONC 32.7 g/dL (33.0-37.0); MEAN PLATELET VOLUME 7.2 fL (7.2-11.7); RBC 2.97 Mil/uL (3.80-5.20); RED CELL DISTRIBUTION WIDTH 20.9 % (11.5-14.5); WHITE BLOOD COUNT 15.4 K/uL (4.8-10.8)
[2018-07-29] MEDS ORDERED: PPN #9 IV ONE (18:00)
--- NOTE | 2018-07-29 22:04 | CP.PCM.PN ---
Subjective - Date & Time of Evaluation Date of Evaluation: 07/29/18 Time of Evaluation: 22:03 - Subjective Subjective: Patient this morning was complaining of some abdominal pain. Yesterday she was able to stand up and walk. But still unable to tolerate anything by mouth. Vomiting noted. Currently patient is receiving PPN. We will continue the PPN. Will watch for any fever. Out of bed to chair. Physical therapy. We will possibly discharge when she is clinically and physically stable for discharge at home. I spoke to the patient regarding the hospice care and the palliative care but the patient is not willing to at this time. Objective - Vital Signs/Intake and Output Vital Signs (last 24 hours): Temp Pulse Resp BP Pulse Ox 98.7 F 82 20 146/84 95 07/29/18 15:53 07/29/18 15:53 07/29/18 15:53 07/29/18 15:53 07/29/18 15:53 Intake and Output: 07/29/18 07/30/18 18:59 06:59 Intake Total 624 Balance 624 - Medications Medications: Current Medications Albuterol/Ipratropium (Duoneb 3 Mg/0.5 Mg (3 Ml) Ud) 3 ml INH RQ4 [facility] Last Admin: 07/29/18 20:26 Dose: Not Given Enoxaparin Sodium (Lovenox) 60 mg SC Q12 [facility] Last Admin: 07/29/18 21:27 Dose: 60 mg Famotidine (Pepcid) 20 mg PO DAILY [facility] Last Admin: 07/29/18 10:10 Dose: 20 mg Guaifenesin (Robitussin) 100 mg PO Q4H PRN PRN Reason: Cough Last Admin: 07/19/18 23:13 Dose: 100 mg Hydromorphone HCl (Dilaudid) 0.5 mg IVP Q4H [facility] Last Admin: 07/29/18 20:31 Dose: 0.5 mg Multivitamins/Vitamin C 10 ml/Chromium/Copper/Manganese/Zinc 1 ml/ Amino Acids 1,011 mls @ 63 mls/hr IV .Q16H3M ONE Stop: 07/30/18 10:02 Last Admin: 07/29/18 17:47 Dose: 63 mls/hr Amino Acids (Clinimix 4.25/5 % "E" (1000 Ml)) 1,000 mls @ 63 mls/hr IV .[id number] ONE Stop: 07/31/18 01:52 Multi-Ingredient Ointment (Prep-Hem) 0 ea TOP BID PRN PRN Reason: Hemorrhoids Last Admin: 07/24/18 21:35 Dose: 1 applic Multivitamins/Vitamin C (Multi-Delyn Liquid) 5 ml PO DAILY [facility] Last Admin: 07/29/18 10:11 Dose: 5 ml Ondansetron HCl (Zofran Inj) 4 mg IVP Q8H PRN PRN Reason: Nausea/Vomiting Last Admin: 07/23/18 11:25 Dose: 4 mg - Labs Labs: 07/29/18 17:02 07/28/18 07:35 PT 15.4 SECONDS (9.7-12.2) H 07/13/18 18:31 INR 1.4 07/13/18 18:31 APTT 34.0 SECONDS (21-34) 07/13/18 18:31
[2018-07-30] MEDS: Albuterol-Ipratrop 3 mg / 0.5 (3 ml) UD INH SCH ×5 (00:17→20:22)
[2018-07-30] MEDS: HYDROmorphone 0.5 mg/0.5 ml ISec IVP SCH ×6 (00:30→20:28)
[2018-07-30 08:04] LABS: HEMOGLOBIN 7.2 g/dL (11.0-16.0); MEAN CELL VOLUME 77.5 fL (81.0-99.0); MEAN CORPUSCULAR HEMOGLOBIN 25.6 pg (27.0-31.0); MEAN CORPUSCULAR HGB CONC 33.1 g/dL (33.0-37.0); MEAN PLATELET VOLUME 7.2 fL (7.2-11.7); RBC 2.81 Mil/uL (3.80-5.20); RED CELL DISTRIBUTION WIDTH 21.1 % (11.5-14.5)
[2018-07-30 08:21] LABS: ALB/GLOB RATIO 0.8 (1.0-2.1); ALBUMIN 2.2 g/dL (3.5-5.0); ALT/SGPT 39 U/L (9-52); AST/SGOT 62 U/L (14-36); BLOOD UREA NITROGEN 10 mg/dL (7-17); CALCIUM 8.3 mg/dl (8.6-10.4); GFR NON-AFRICAN AMERICAN > 60
[2018-07-30] MEDS ORDERED: PPN #12 IV ONE (10:00)
[2018-07-30] MEDS ORDERED: PPN #10 IV ONE (10:00)
[2018-07-30] MEDS: Enoxaparin 60 mg Syringe SC SCH ×2 (10:54→21:29)
[2018-07-30] MEDS: Multiple Vitamins Oral Solution PO SCH (10:58)
[2018-07-30] MEDS ORDERED: PPN #11 IV ONE (18:00)
--- NOTE | 2018-07-30 21:26 | CP.PCM.PN ---
Subjective - Date & Time of Evaluation Date of Evaluation: 07/30/18 Time of Evaluation: 21:25 - Subjective Subjective: Patient is now more drowsy and sleepy. But she woke up and went to the bathroom she was able to stand up and walk. I explained to the patient about the low hemoglobin. We will do the transfusion tomorrow. No active bleeding. Most likely secondary to chronic disease. Patient is asking for more pain management and pain medication. I explained to the patient about the hospice, but the patient does not want to hospice at this time. We will speak to the family tomorrow. Overall prognosis is guarded. We will follow the patient. Currently patient is on TPN. White count is on the high side. We will do a septic work-up tomorrow. Objective - Vital Signs/Intake and Output Vital Signs (last 24 hours): Temp Pulse Resp BP Pulse Ox 99.1 F 80 20 128/83 97 07/30/18 16:00 07/30/18 16:00 07/30/18 16:00 07/30/18 16:00 07/30/18 16:00 Intake and Output: 07/30/18 07/31/18 18:59 06:59 Intake Total 604 Balance 604 - Medications Medications: Current Medications Albuterol/Ipratropium (Duoneb 3 Mg/0.5 Mg (3 Ml) Ud) 3 ml INH RQ4 [facility] Last Admin: 07/30/18 20:22 Dose: Not Given Enoxaparin Sodium (Lovenox) 60 mg SC Q12 [facility] Last Admin: 07/30/18 10:54 Dose: 60 mg Famotidine (Pepcid) 20 mg PO DAILY [facility] Last Admin: 07/30/18 10:54 Dose: 20 mg Hydromorphone HCl (Dilaudid) 0.5 mg IVP Q4H [facility] Last Admin: 07/30/18 20:28 Dose: 0.5 mg Amino Acids (Clinimix 4.25/5 % "E" (1000 Ml)) 1,000 mls @ 63 mls/hr IV .[id number] ONE Stop: 07/31/18 01:52 Multivitamins/Vitamin C 10 ml/Chromium/Copper/Manganese/Zinc 1 ml/ Amino Acids 1,011 mls @ 63 mls/hr IV .Q16H3M ONE Stop: 07/31/18 10:02 Last Admin: 07/30/18 17:26 Dose: 63 mls/hr Amino Acids (Clinimix 4.25/5 % "E" (1000 Ml)) 1,000 mls @ 63 mls/hr IV .[id number] ONE Stop: 08/01/18 01:52 Multi-Ingredient Ointment (Prep-Hem) 0 ea TOP BID PRN PRN Reason: Hemorrhoids Last Admin: 07/24/18 21:35 Dose: 1 applic Multivitamins/Vitamin C (Multi-Delyn Liquid) 5 ml PO DAILY [facility] Last Admin: 07/30/18 10:58 Dose: 5 ml Ondansetron HCl (Zofran Inj) 4 mg IVP Q8H PRN PRN Reason: Nausea/Vomiting Last Admin: 07/23/18 11:25 Dose: 4 mg - Labs Labs: 07/30/18 07:58 07/30/18 07:58 PT 15.4 SECONDS (9.7-12.2) H 07/13/18 18:31 INR 1.4 07/13/18 18:31 APTT 34.0 SECONDS (21-34) 07/13/18 18:31
[2018-07-31] MEDS: Albuterol-Ipratrop 3 mg / 0.5 (3 ml) UD INH SCH ×6 (00:20→23:47)
[2018-07-31] MEDS: HYDROmorphone 0.5 mg/0.5 ml ISec IVP SCH ×6 (00:30→20:36)
[2018-07-31 06:35] LABS: BASO # 0.1 K/uL (0.0-0.2); BASO % 0.4 % (0.0-2.0); EOS # 0.5 K/uL (0.0-0.7); EOS % 3.4 % (0.0-4.0); HEMOGLOBIN 7.2 g/dL (11.0-16.0); LYMPH # 0.8 K/uL (1.0-4.3); LYMPH % 5.4 % (20.0-40.0); MEAN CELL VOLUME 77.7 fL (81.0-99.0); MEAN CORPUSCULAR HEMOGLOBIN 25.9 pg (27.0-31.0); MEAN CORPUSCULAR HGB CONC 33.3 g/dL (33.0-37.0); MEAN PLATELET VOLUME 7.4 fL (7.2-11.7); MONO # 1.5 K/uL (0.0-0.8); MONO % 9.9 % (0.0-10.0); NEUT # 12.5 K/uL (1.8-7.0); NEUT % 80.9 % (50.0-75.0); PLATELET COUNT 326 K/uL (130-400); RBC 2.77 Mil/uL (3.80-5.20); RED CELL DISTRIBUTION WIDTH 20.9 % (11.5-14.5); WHITE BLOOD COUNT 15.4 K/uL (4.8-10.8)
[2018-07-31 06:44] LABS: ALB/GLOB RATIO 0.8 (1.0-2.1); ALBUMIN 2.3 g/dL (3.5-5.0); ALT/SGPT 28 U/L (9-52); AST/SGOT 34 U/L (14-36); BLOOD UREA NITROGEN 9 mg/dL (7-17); CALCIUM 8.2 mg/dl (8.6-10.4); GFR NON-AFRICAN AMERICAN > 60
[2018-07-31 08:18] LABS: BANDS 3 % (0-2); EOSINOPHIL 3 % (0-4); LYMPHOCYTE 5 % (20-40); MONOCYTE 9 % (0-10); NEUTROPHIL 80 % (50-75); TOTAL CELLS COUNTED 100
[2018-07-31 08:19] LABS: ANISOCYTOSIS MODERATE; PLATELET ESTIMATE NORMAL (NORMAL)
[2018-07-31 08:20] LABS: HYPOCHROMIC SLIGHT; LARGE PLATELETS PRESENT; MICROCYTOSIS SLIGHT; POLYCHROMIC SLIGHT
[2018-07-31] MEDS: Enoxaparin 60 mg Syringe SC SCH ×2 (09:19→21:24)
[2018-07-31] MEDS: Multiple Vitamins Oral Solution PO SCH (09:19)
[2018-07-31] MEDS ORDERED: PPN #12 IV ONE (10:00)
[2018-07-31] MEDS ORDERED: PPN #13 IV ONE (18:00)
[2018-07-31] MEDS: Aztreonam 1 GM in Sodium Chloride 0.9% 100 ML IVPB SCH (20:35)
--- NOTE | 2018-07-31 21:10 | CP.PCM.CON ---
History of Present Illness - History of Present Illness History of Present Illness: INFECTIOUS DISEASE CONSULT; HPI; 62-year-old pleasant female with history of advanced pancreatic cancer with advancement into the duodenum, S/P Whipple's procedure 2013 when the cancer was diagnosed, chronic polyps, hypertension, and anxiety problems who lives alone by herself admitted on 07/13 when she was sent by her oncologist Dr. CRUZ for evaluation of abdominal pains and multiple episodes of diarrhea and persistent vomiting. Patient had leukocytosis and was worked up for sepsis and fever and placed on IV Zosyn which was recently discontinued due to'negative cultures, and negative C. difficile and diarrhea workup. After discontinuation of antibiotics,patient was noted to have still leukocytosis and blood cultures were repeated which were reported today as gram- negative rods. Patient presently on PPN.Patient states she did receive chemotherapy after diagnosis of her pancreatic cancer,after Whipple's procedure INFECTIOUS DISEASE CONSULTATION THEREFORE REQUESTED BY PMD FOR GRAM-NEGATIVE SEPSIS. PATIENT HAS A PORT-a-CATH ON THE LEFT CHEST WALL PLACED IN 2013.DENIES ANY PAIN AT THE SITE OF THE pORT-a-cATH.. PATIENT PRESENTLY DENIES ANY FURTHER DIARRHEA, NAUSEA OR VOMITING. COMPLAINS OF INTERMITTENT ABDOMINAL PAINS. Patient denies any cough, shortness of breath, chest pain or palpitations. PMH: Anxiety, Colonic Polyps, HTN, Malignancy (Advanced pancreatic/duodenal CA), Osteoporosis Denies: Fractures, Chronic Kidney Disease, TIA Surgical History: Endoscopy - [facility] Procedures INTRODUCTION OF NUTRITIONAL INTO PERIPH VEIN, PERC APPROACH (05/21/18) Family History: States: Unknown Family Hx - Social History Hx Alcohol Use: No Hx Substance Use: No - Immunization History Hx Tetanus Toxoid Vaccination: No Hx Influenza Vaccination: Yes (2018) Hx Pneumococcal Vaccination: No. ALLERGY; NKA. Review of Systems - Constitutional Constitutional: Weight Loss. absent: Chills, Fever - EENT Eyes: absent: Change in Vision Ears: absent: Ear Pain Nose/Mouth/Throat: absent: Nasal Congestion, Sinus Pressure, Mouth Lesions - Cardiovascular Cardiovascular: absent: Chest Pain - Respiratory Respiratory: absent: Cough - Gastrointestinal Gastrointestinal: Abdominal Pain. absent: Diarrhea, Nausea, Vomiting - Genitourinary Genitourinary: absent: Dysuria - Neurological Neurological: absent: Dizziness, Headaches - Hematologic/Lymphatic Hematologic: As Per HPI. absent: Easy Bleeding, Easy Bruising, Lymphadenopathy Past Patient History - Past Medical History & Family History Past Medical History?: Yes - Past Social History Smoking Status: Former Smoker - CARDIAC Hx Hypertension: Yes - PULMONARY Hx Respiratory Disorders: No - NEUROLOGICAL Hx Transient Ischemic Attacks (TIA): No - HEENT Hx HEENT Problems: No - RENAL Hx Chronic Kidney Disease: No - ENDOCRINE/METABOLIC Hx Endocrine Disorders: Yes Hx Diabetes Mellitus Type 2: Yes - HEMATOLOGICAL/ONCOLOGICAL Hx Blood Disorders: Yes (SEE COMMENT) Hx Cancer: Yes (DUODENAL (2016)) Hx Chemotherapy: Yes (PRESENTLY Q 3 WEEKS) Other/Comment: NO RADIATION; ORAL CHEMOTHERAPY MEDICATION - INTEGUMENTARY Hx Dermatological Problems: No - MUSCULOSKELETAL/RHEUMATOLOGICAL Hx Falls: Yes - GASTROINTESTINAL Hx Gastrointestinal Disorders: Yes (SEE COMMENT) Hx Bowel Surgery: Yes (WHIPPLE PROCEDURE SEPTEMBER 2013) Other/Comment: PANCREATICODUODENAL CANCER 2013; MALROTATED INTESTINES - GENITOURINARY/GYNECOLOGICAL Hx Genitourinary Disorders: No - PSYCHIATRIC Hx Substance Use: No - SURGICAL HISTORY Hx Surgeries: Yes Hx Hysterectomy: Yes (PARTIAL 1989; FIBROIDS) Other/Comment: WHIPPLE'S Procedure 2013 - ANESTHESIA Hx Anesthesia: Yes Hx Anesthesia Reactions: No Hx Malignant Hyperthermia: No Meds Allergies/Adverse Reactions: Allergies Allergy/AdvReac Type Severity Reaction Status Date / Time No Known Allergies Allergy Verified 07/13/18 16:58 - Medications Medications: Current Medications Albuterol/Ipratropium (Duoneb 3 Mg/0.5 Mg (3 Ml) Ud) 3 ml INH RQ4 [facility] Last Admin: 07/31/18 19:55 Dose: Not Given Enoxaparin Sodium (Lovenox) 60 mg SC Q12 [facility] Last Admin: 07/31/18 09:19 Dose: 60 mg Famotidine (Pepcid) 20 mg PO DAILY [facility] Last Admin: 07/31/18 09:19 Dose: 20 mg Hydromorphone HCl (Dilaudid) 0.5 mg IVP Q4H [facility] Last Admin: 07/31/18 20:36 Dose: 0.5 mg Amino Acids (Clinimix 4.25/5 % "E" (1000 Ml)) 1,000 mls @ 63 mls/hr IV .[id number] ONE Stop: 08/01/18 01:52 Last Admin: 07/31/18 09:37 Dose: Not Given Multivitamins/Vitamin C 10 ml/Chromium/Copper/Manganese/Zinc 1 ml/ Amino Acids 1,011 mls @ 63 mls/hr IV .Q16H3M ONE Stop: 08/01/18 10:02 Last Admin: 07/31/18 17:36 Dose: 63 mls/hr Amino Acids (Clinimix 4.25/5 % "E" (1000 Ml)) 1,000 mls @ 63 mls/hr IV .[id number] ONE Stop: 08/02/18 01:52 Aztreonam 1 gm/ Sodium (Chloride) 100 mls @ 100 mls/hr IVPB Q8H [facility]; Protocol Last Admin: 07/31/18 20:35 Dose: 100 mls/hr Multi-Ingredient Ointment (Prep-Hem) 0 ea TOP BID PRN PRN Reason: Hemorrhoids Last Admin: 07/24/18 21:35 Dose: 1 applic Multivitamins/Vitamin C (Multi-Delyn Liquid) 5 ml PO DAILY [facility] Last Admin: 07/31/18 09:19 Dose: 5 ml Ondansetron HCl (Zofran Inj) 4 mg IVP Q8H PRN PRN Reason: Nausea/Vomiting Last Admin: 07/23/18 11:25 Dose: 4 mg Physical Exam - Constitutional Appears: No Acute Distress (NAME) - Head Exam Head Exam: NORMAL INSPECTION - Eye Exam Eye Exam: EOMI, PERRL. absent: Scleral icterus - ENT Exam ENT Exam: Normal Oropharynx - Neck Exam Neck exam: Positive for: Normal Inspection - Respiratory Exam Respiratory Exam: Clear to Auscultation Bilateral, NORMAL BREATHING PATTERN - GI/Abdominal Exam GI & Abdominal Exam: Normal Bowel Sounds, Soft. absent: Organomegaly, Tenderness (MIDLINE SCAR OF PREVIOUS SURGERY.) - Extremities Exam Extremities exam: Positive for: pedal pulses present. Negative for: calf tenderness, pedal edema - Neurological Exam Neurological exam: Alert, CN II-XII Intact, Normal Gait, Oriented x3, Reflexes Normal - Skin Skin Exam: Normal Color, Warm Results - Vital Signs Recent Vital Signs: Last Vital Signs Temp 97.7 F 07/31/18 17:13 Pulse 78 07/31/18 17:13 Resp 20 07/31/18 17:13 BP 143/84 07/31/18 17:13 Pulse Ox 97 07/31/18 16:00 - Labs Result Diagrams: 07/31/18 06:09 07/31/18 06:09 Labs: Laboratory Results - last 24 hr 07/31/18 07/31/18 07/31/18 06:09 06:09 06:09 WBC 15.4 H RBC 2.77 L Hgb 7.2 L Hct 21.5 L MCV 77.7 L MCH 25.9 L MCHC 33.3 RDW 20.9 H Plt Count 326 MPV 7.4 Neut % (Auto) 80.9 H Lymph % (Auto) 5.4 L [place] % (Auto) 9.9 Eos % (Auto) 3.4 Baso % (Auto) 0.4 Neut # (Auto) 12.5 H Lymph # (Auto) 0.8 L [place] # (Auto) 1.5 H Eos # (Auto) 0.5 Baso # (Auto) 0.1 Neutrophils % (Manual) 80 H Band Neutrophils % 3 H Lymphocytes % (Manual) 5 L Monocytes % (Manual) 9 Eosinophils % (Manual) 3 Platelet Estimate Normal Large Platelets Present Polychromasia Slight Hypochromasia (manual) Slight Anisocytosis (manual) Moderate Microcytosis (manual) Slight Sodium 128 L Potassium 3.8 Chloride 97 L Carbon Dioxide 25 Anion Gap 10 BUN 9 Creatinine 0.4 L Est GFR ( Amer) > 60 Est GFR (Non-Af Amer) > 60 Random Glucose 151 H Calcium 8.2 L Phosphorus 3.6 Magnesium 1.6 Total Bilirubin 0.8 AST 34 ALT 28 Alkaline Phosphatase 984 H Total Protein 5.2 L Albumin 2.3 L Globulin 2.9 Albumin/Globulin Ratio 0.8 L Blood Type O POSITIVE Antibody Screen Negative - Imaging and Cardiology CT scan - abdomenAND PELVIS WITH iv CONTRAST Status: Report reviewed by me Assessment & Plan (1) Gram-negative sepsis Assessment and Plan: BLOOD CULTURE +VE GRAM -VE RODS 07/31/18 LEUKOCYTOSIS wbc 15.4. source of sepsis -most probable intra-abdominal/ enterocolitis vs necrotizing tumor. START PATIENT ON iv AZACTAM 1 G iv PIGGYBACK EVERY 8 HOURLY 07/31/18 ADD IV fLAGYL 500 MG EVERY 8 HOURLY 08/01/18. F/U CULTURES TO ADJUST ANTIBIOTICS. CASE DISCUSSED WITH PMD /AND STAFF. Status: Acute (2) Pancreatic cancer metastasized to liver Assessment and Plan: S/P WHIPPLE'S PROCEDURE 2013. /AND CHEMOTHERAPY. Status: Acute (3) Abdominal pain Assessment and Plan: PER GI /PMD. PATIENT HAS MILD ASCITES. ON PREVIOUS cat SCAN OF 07/13/17. MAY NEED TO REPEAT TO EVALUATE SIZE OF ASCITES AND EXTENSION OF HEPATIC METASTASIS OR TUMOR. Status: Acute (4) Anemia Assessment and Plan: 07/31/18 H/H 7.2 AND 21.5 MAY NEED BLOOD TRANSFUSION. PER PMD. Status: Acute
[2018-08-01] MEDS: HYDROmorphone 0.5 mg/0.5 ml ISec IVP SCH ×6 (00:40→20:34)
[2018-08-01] MEDS: Albuterol-Ipratrop 3 mg / 0.5 (3 ml) UD INH SCH ×5 (03:24→20:59)
[2018-08-01] MEDS: Aztreonam 1 GM in Sodium Chloride 0.9% 100 ML IVPB SCH ×3 (04:30→20:35)
[2018-08-01] MEDS: metroNIDAZOLE IV 500 mg/100 ml 500 MG/100 ML BAG IVPB SCH ×3 (06:00→21:44)
[2018-08-01 07:30] LABS: BASO # 0.1 K/uL (0.0-0.2); BASO % 0.5 % (0.0-2.0); EOS # 0.7 K/uL (0.0-0.7); EOS % 4.3 % (0.0-4.0); HEMOGLOBIN 8.6 g/dL (11.0-16.0); LYMPH # 0.8 K/uL (1.0-4.3); LYMPH % 4.8 % (20.0-40.0); MEAN CORPUSCULAR HEMOGLOBIN 25.9 pg (27.0-31.0); MEAN CORPUSCULAR HGB CONC 32.8 g/dL (33.0-37.0); MEAN PLATELET VOLUME 7.2 fL (7.2-11.7); MONO # 1.9 K/uL (0.0-0.8); MONO % 11.7 % (0.0-10.0); NEUT # 12.8 K/uL (1.8-7.0); NEUT % 78.7 % (50.0-75.0); PLATELET COUNT 325 K/uL (130-400); RBC 3.32 Mil/uL (3.80-5.20); RED CELL DISTRIBUTION WIDTH 20.5 % (11.5-14.5); WHITE BLOOD COUNT 16.3 K/uL (4.8-10.8)
[2018-08-01 09:08] LABS: EOSINOPHIL 2 % (0-4); LYMPHOCYTE 4 % (20-40); MONOCYTE 12 % (0-10); NEUTROPHIL 82 % (50-75); TOTAL CELLS COUNTED 100
[2018-08-01 09:09] LABS: ANISOCYTOSIS MODERATE; PLATELET ESTIMATE NORMAL (NORMAL); POLYCHROMIC SLIGHT; TARGET CELLS SLIGHT
[2018-08-01 09:10] LABS: LARGE PLATELETS PRESENT; MICROCYTOSIS SLIGHT
[2018-08-01] MEDS: Enoxaparin 60 mg Syringe SC SCH ×2 (09:53→21:43)
[2018-08-01] MEDS: Multiple Vitamins Oral Solution PO SCH (09:53)
[2018-08-01] MEDS ORDERED: PPN #14 IV ONE (10:00)
--- NOTE | 2018-08-01 15:34 | CP.PCM.PN ---
Subjective - Date & Time of Evaluation Date of Evaluation: 08/01/18 Time of Evaluation: 15:34 - Subjective Subjective: AFEBRILE, VSS NO ACUTE EVENTS OVERNIGHT. ON IV ABX LABS ; REVIEWED; WBC 16.3 INCREASING BLOOD CULTURE 2:2 SETS +VE GNR--P-IDENTIFICATION Objective - Vital Signs/Intake and Output Vital Signs (last 24 hours): Temp Pulse Resp BP Pulse Ox 98.4 F 84 20 119/77 100 08/01/18 07:00 08/01/18 07:00 08/01/18 07:00 08/01/18 07:00 08/01/18 07:00 Intake and Output: 08/01/18 08/01/18 06:59 18:59 Intake Total 665 1282 Output Total 2 Balance 663 1282 - Medications Medications: Current Medications Albuterol/Ipratropium (Duoneb 3 Mg/0.5 Mg (3 Ml) Ud) 3 ml INH RQ4 MELVA Last Admin: 08/01/18 11:39 Dose: Not Given Enoxaparin Sodium (Lovenox) 60 mg SC Q12 MELVA Last Admin: 08/01/18 09:53 Dose: 60 mg Famotidine (Pepcid) 20 mg PO DAILY MELVA Last Admin: 08/01/18 09:53 Dose: 20 mg Amino Acids (Clinimix 4.25/5 % "E" (1000 Ml)) 1,000 mls @ 63 mls/hr IV .[id number] ONE Stop: 08/02/18 01:52 Last Admin: 08/01/18 14:28 Dose: Not Given Aztreonam 1 gm/ Sodium (Chloride) 100 mls @ 100 mls/hr IVPB Q8H MELVA; Protocol Last Admin: 08/01/18 12:19 Dose: 100 mls/hr Metronidazole (Flagyl) 500 mg in 100 mls @ 100 mls/hr IVPB Q8H MELVA; Protocol Last Admin: 08/01/18 14:06 Dose: 100 mls/hr Dextrose/Sodium Chloride (Dextrose 5%/0.9% Ns 1000 Ml) 1,000 mls @ 100 mls/hr IV .Q10H MELVA Multi-Ingredient Ointment (Prep-Hem) 0 ea TOP BID PRN PRN Reason: Hemorrhoids Last Admin: 07/24/18 21:35 Dose: 1 applic Multivitamins/Vitamin C (Multi-Delyn Liquid) 5 ml PO DAILY MELVA Last Admin: 08/01/18 09:53 Dose: 5 ml Ondansetron HCl (Zofran Inj) 4 mg IVP Q8H PRN PRN Reason: Nausea/Vomiting Last Admin: 07/23/18 11:25 Dose: 4 mg - Labs Labs: 08/01/18 07:17 07/31/18 06:09 PT 15.4 SECONDS (9.7-12.2) H 07/13/18 18:31 INR 1.4 07/13/18 18:31 APTT 34.0 SECONDS (21-34) 07/13/18 18:31 - Constitutional Appears: No Acute Distress - Head Exam Head Exam: NORMAL INSPECTION - Eye Exam Eye Exam: EOMI, PERRL - ENT Exam ENT Exam: Normal Oropharynx - Neck Exam Neck Exam: Normal Inspection - Respiratory Exam Respiratory Exam: Decreased Breath Sounds, NORMAL BREATHING PATTERN - Cardiovascular Exam Cardiovascular Exam: REGULAR RHYTHM, +S1, +S2 - GI/Abdominal Exam GI & Abdominal Exam: Soft, Tenderness (EPIGASTRIUM/ LUQ), Normal Bowel Sounds - Extremities Exam Extremities Exam: Normal Capillary Refill. absent: Calf Tenderness, Pedal Edema - Neurological Exam Neurological Exam: Awake, CN II-XII Intact, Oriented x3 - Psychiatric Exam Psychiatric exam: Normal Mood - Skin Skin Exam: Normal Color, Warm Assessment and Plan (1) Gram-negative sepsis Assessment & Plan: LEUKOCYTOSIS wbc 16.3 INCREASING source of sepsis -most probable intra-abdominal/ enterocolitis vs necrotizing tumor. ADD ONE DOSE OF IV AMIKACIN 500MG IVPB X1 STAT WHILE AWAITING BLOOD CULTURE RESULTS. 08/01/18 CONTINUE ON iv AZACTAM 1 G iv PIGGYBACK EVERY 8 HOURLY 07/31/18 ADD IV fLAGYL 500 MG EVERY 8 HOURLY 08/01/18. F/U CULTURES TO ADJUST ANTIBIOTICS. Status: Acute (2) Pancreatic cancer metastasized to liver Status: Acute (3) Abdominal pain Assessment & Plan: PER GI /PMD. PATIENT HAS MILD ASCITES. ON PREVIOUS cat SCAN OF 07/13/17. MAY NEED TO REPEAT TO EVALUATE SIZE OF ASCITES AND EXTENSION OF HEPATIC METASTASIS OR TUMOR. Status: Acute (4) Anemia Status: Acute
[2018-08-01] MEDS ORDERED: HYDROmorphone 1 mg/ml ISec IVP SCH (16:30)
[2018-08-01] MEDS: Dextrose 5%/0.9% NS 1,000 ML IV SCH (16:42)
[2018-08-02] MEDS: HYDROmorphone 0.5 mg/0.5 ml ISec IVP SCH ×6 (00:29→20:32)
[2018-08-02] MEDS: Dextrose 5%/0.9% NS 1,000 ML IV SCH ×3 (03:00→23:00)
[2018-08-02] MEDS: Aztreonam 1 GM in Sodium Chloride 0.9% 100 ML IVPB SCH ×3 (04:08→20:27)
[2018-08-02] MEDS: metroNIDAZOLE IV 500 mg/100 ml 500 MG/100 ML BAG IVPB SCH ×3 (05:32→21:26)
[2018-08-02] MEDS: Albuterol-Ipratrop 3 mg / 0.5 (3 ml) UD INH SCH ×3 (09:14→20:15)
[2018-08-02] MEDS: Enoxaparin 60 mg Syringe SC SCH ×2 (09:57→21:26)
[2018-08-02] MEDS: Multiple Vitamins Oral Solution PO SCH (09:57)
[2018-08-02 11:55] LABS: BASO # 0.1 K/uL (0.0-0.2); BASO % 0.4 % (0.0-2.0); EOS % 5.7 % (0.0-4.0); HEMOGLOBIN 8.2 g/dL (11.0-16.0); LYMPH # 0.7 K/uL (1.0-4.3); LYMPH % 3.9 % (20.0-40.0); MEAN CELL VOLUME 78.8 fL (81.0-99.0); MEAN CORPUSCULAR HEMOGLOBIN 26.2 pg (27.0-31.0); MEAN CORPUSCULAR HGB CONC 33.2 g/dL (33.0-37.0); MEAN PLATELET VOLUME 7.3 fL (7.2-11.7); MONO # 1.6 K/uL (0.0-0.8); MONO % 9.4 % (0.0-10.0); NEUT # 14.1 K/uL (1.8-7.0); NEUT % 80.6 % (50.0-75.0); PLATELET COUNT 363 K/uL (130-400); RBC 3.12 Mil/uL (3.80-5.20); RED CELL DISTRIBUTION WIDTH 20.5 % (11.5-14.5); WHITE BLOOD COUNT 17.5 K/uL (4.8-10.8)
[2018-08-02 12:19] LABS: ANISOCYTOSIS MODERATE; BANDS 2 % (0-2); EOSINOPHIL 5 % (0-4); LYMPHOCYTE 5 % (20-40); MONOCYTE 6 % (0-10); NEUTROPHIL 82 % (50-75); PLATELET ESTIMATE NORMAL (NORMAL); TOTAL CELLS COUNTED 100
[2018-08-02 12:20] LABS: ALB/GLOB RATIO 0.8 (1.0-2.1); ALBUMIN 2.3 g/dL (3.5-5.0); ALT/SGPT 36 U/L (9-52); AST/SGOT 68 U/L (14-36); BLOOD UREA NITROGEN 7 mg/dL (7-17); CALCIUM 7.7 mg/dl (8.6-10.4); GFR NON-AFRICAN AMERICAN > 60; HYPOCHROMIC SLIGHT; LARGE PLATELETS PRESENT
--- NOTE | 2018-08-02 13:21 | CT ---
Date of service: 08/02/2018 PROCEDURE: CT Abdomen and Pelvis without intravenous contrast HISTORY: renal failure uti COMPARISON: 07/13/2018 TECHNIQUE: Technique. Contrast dose: Radiation dose: Total exam DLP = 471.84 mGy-cm. This CT exam was performed using one or more of the following dose reduction techniques: Automated exposure control, adjustment of the mA and/or kV according to patient size, and/or use of iterative reconstruction technique. FINDINGS: LOWER THORAX: Unremarkable. LIVER: Redemonstration of diffuse liver metastasis with fatty infiltration of the liver. GALLBLADDER AND BILE DUCTS: Unremarkable. PANCREAS: Redemonstration of a large pancreatic mass invading the lesser sac grossly measuring roughly 14 x 6 centimeters. Invasion of the lesser curvature of the stomach and duodenal sweep. SPLEEN: Unremarkable. ADRENALS: Unremarkable. No mass. KIDNEYS AND URETERS: 3 centimeter left renal cyst. No hydronephrosis. No solid mass. VASCULATURE: Unremarkable. No aortic aneurysm. No aortic atherosclerotic calcification or mural plaque present. BOWEL: Unremarkable. No obstruction. No gross mural thickening. APPENDIX: Unremarkable. Normal appendix. PERITONEUM: Mesenteric and pelvic free fluid. LYMPH NODES: Multiple mesenteric lymph nodes and mesenteric fat infiltration. BLADDER: Unremarkable. REPRODUCTIVE: Unremarkable. BONES: No acute fracture. OTHER FINDINGS: None. IMPRESSION: Redemonstration of a large pancreatic mass invading the lesser sac grossly measuring roughly 14 x 6 centimeters. Invasion of the lesser curvature of the stomach and duodenal sweep. Redemonstration of diffuse liver metastases with pelvic ascites and mesenteric lymphadenopathy.
--- NOTE | 2018-08-02 15:46 | PCM.PCON ---
History of Present Illness - History of Present Illness History of Present Illness: Palliative consult requested by Doctor Yris, for goals of care discussion Patient is a 63 yo female admitted from home with nausea and vomiting X 4 days. Patient had multiple episodes of diarrhea during that period of time. Patient has been treated for pancreatic cancer by Doctor Alarcon. Patient reports being diagnose 2013 , went into remission until 2016 when cancer reoccurred again. On this hospital stay patient continued to have poor PO intakes and is started on TPN for nutrition. Patient continued PO chemo as ordered. Patient condition remained unstable since admission due to positive blood cultures and poor appetite. BC + Klebsiella infection Meds: Flagyl IV, Clinimix IV, Azactam IV, Primaxin IV, Dilaudid 0.5 mg Iv Q 4 hr PRN Labs: WBC 17.5, Hb 8.2, Alb 2.3, Alkaline Phos. 1227 VS: BP 137/83, HR 103, afebrile All: NKA Code status: Full Code, there is no Advance Directive on chart, patient reports having a copy of Advance Directive at home PPS: 20 % PMH: pancreatic CA with mets, colonyc polyps, HTN, TIA Soc. Hx: Single, lives aloe at home Fam. Hx: reports cancer in family, both parents Review of Systems - Constitutional Constitutional: Fatigue, Weight Loss, Weakness - EENT Eyes: absent: As Per HPI, Blind Spots, Blurred Vision, Change in Vision, Decreased Night Vision, Diplopia, Discharge, Dry Eye, Exophthalmos, Floaters, Irritation, Itchy Eyes, Loss of Peripheral Vision, Pain, Photophobia, Requires Corrective Lenses, Sees Flashes, Spots in Vision, Tunnel Vision, Other Visual Disturbances, Loss of Vision, Other Ears: absent: As Per HPI, Decreased Hearing, Ear Discharge, Ear Pain, Tinnitus, Abnormal Hearing, Disequilibrium, Dizziness, Other Nose/Mouth/Throat: absent: As Per HPI, Epistaxis, Nasal Congestion, Nasal Discharge, Nasal Obstruction, Nasal Trauma, Nose Pain, Post Nasal Drip, Sinus Pain, Sinus Pressure, Bleeding Gums, Change in Voice, Dental Pain, Dry Mouth, Dysphagia, Halitosis, Hoarsness, Lip Swelling, Mouth Lesions, Mouth Pain, Odynophagia, Sore Throat, Throat Swelling, Tongue Swelling, Facial Pain, Neck Pain, Neck Mass, Other - Breasts Breasts: absent: As Per HPI, Change in Shape, Mass, Pain, Nipple Discharge, Nipple Inversion, Skin Changes, Swelling, Other - Cardiovascular Cardiovascular: absent: As Per HPI, Acrocyanosis, Chest Pain, Chest Pain at Rest, Chest Pain with Activity, Claudication, Diaphoresis, Dyspnea, Dyspnea on E xertion, Edema, Irregular Heart Rhythm, Pain Radiating to Arm/Neck/Jaw, Leg Edema, Leg Ulcers, Lightheadedness, Orthopnea, Palpitations, Paroxysmal Nocturnal Dyspnea, Pedal Edema, Radiating Pain, Rapid Heart Rate, Slow Heart Rate, Syncope, Other - Respiratory Respiratory: absent: As Per HPI, Cough, Dyspnea, Hemoptysis, Dyspnea on Exertion, Wheezing, Snoring, Stridor, Pain on Inspiration, Chest Congestion, Excessive Mucous Production, Change in Mucous Color, Pain with Coughing, Other - Gastrointestinal Gastrointestinal: Abdominal Pain, Change in Stool Character, Dyspepsia, Loose Stools, Nausea - Genitourinary Genitourinary: absent: As Per HPI, Change in Urinary Stream, Difficulty Urinating, Dysuria, Flank Pain, Hematuria, Pyuria, Nocturia, Urinary Incontinence, Urinary Frequency, Urinary Hesitance, Urinary Urgency, Voiding Freq/Small Amts, Freq UTI, Hx Renal/Bladder Calculi, Hx /Renal Surgery, Bladder Distension, Other - Reproductive: Female Reproductive:Female: Post Menopausal - Menstruation Menstruation: Post Menopausal - Musculoskeletal Musculoskeletal: Limited Range of Motion, Muscle Weakness, Stiffness - Integumentary Integumentary: Dry Skin, Striae - Neurological Neurological: Behavioral Changes, Weakness - Psychiatric Psychiatric: Anxiety, Change in Appetite, Difficulty Concentrating - Endocrine Endocrine: Fatigue - Hematologic/Lymphatic Hematologic: absent: As Per HPI, Easy Bleeding, Easy Bruising, Lymphadenopathy, Other Physical Exam - Constitutional Appears: No Acute Distress, Chronically Ill - Head Exam Head Exam: ATRAUMATIC, NORMAL INSPECTION, NORMOCEPHALIC - Eye Exam Eye Exam: EOMI, Normal appearance, PERRL Pupil Exam: NORMAL ACCOMODATION, PERRL - ENT Exam ENT Exam: Mucous Membranes Dry, Normal External Ear Exam, Normal Oropharynx, TM's Normal Bilaterally - Neck Exam Neck exam: Positive for: Normal Inspection - Respiratory Exam Respiratory Exam: Decreased Breath Sounds, NORMAL BREATHING PATTERN - Cardiovascular Exam Cardiovascular Exam: Tachycardia, REGULAR RHYTHM, +S1, +S2 - GI/Abdominal Exam GI & Abdominal Exam: Diminished Bowel Sounds, Rigid - Rectal Exam Rectal Exam: Deferred - Extremities Exam Extremities exam: Positive for: normal capillary refill, normal inspection, pedal pulses present - Back Exam Back exam: NORMAL INSPECTION - Neurological Exam Neurological exam: Alert, Oriented x3 - Psychiatric Exam Psychiatric exam: Agitated, Anxious, Depressed - Skin Skin Exam: Dry, Intact, Pallor, Warm Palliative Care Assessment - Modified MRC Dyspnea Scale Modified MRC Dyspnea Scale: Not troubled by breathlessness except on strenous exercise Grade: 1 - Pain Location Upper or Lower: Upper Pain Location Body Site: Abdomen - Pain Description Description: Constant, Dull, Chronic Intensity of pain at present: 8 Acceptable Level of Pain: 3 Radiation Location: NA Variations/Patterns: pain increases at the end of the dose Site Observation: Abdominal pain Duration: Months Pain Behavior: Crying, Irritability, Refusal to Eat, Facial Grimacing Aggravating Factors: None Alleviating Factors/Management Techniques: Medication, Position Change, Distraction - Jayden Scale Sensory Perception: No Impairment Moisture: Rarely Moist Activity: Bedfast Mobility: Slightly Impaired Nutrition: Probably Inadequate Friction & Shear: Potential Problem Total Score - Skin Risk Assessment: 16 - Psychosocial Distress Patient screened for psychosocial distress: Yes Psychosocial Intervention(s): Patient frustrated by prolonged hospital stay, food intolerance and is concerned with her diagnosis/prognosis. Patient cries easily. Signs of depression related to above discussed. patient admits feeling depressed or down for > 3 months. Patient agreed to talk to Pastoral care for spiritual support. Patient is agreable with anti depression meds if ordered. Outcome: Referred to social staff worker, Referred to pastoral care (Patient receptive to psych evaluation of depression.) Palliative Care - Goals Goal(s) of care: Patient concerns and values of care discussed. Patient stated being determined to fight cancer. She wishes to be able to tolerate food and return home. Patient feels she is not offered food of choice while here; she feels if she was home she would be able to eat much better. Patient reports having sufficient support at home. Treatment Goal(s): Alleviate symptoms, Improve ADLs, Improve quality of life End of life care discussed: Yes End of life discussion: I reviewed patient's clinical condition and elicited her concerns and expectations. Patient is aware of her metastatic disease; on daily PO chemo Tx. Patient is willing to fight disease as long as possible. If her condition decline drastically and she should need life support to prolong her life, patient wishes to be allowed natural . Patient has a POA Document at home. She was able to show me copy of it on her phone. The copy of document indicates patient's wishes for DNR/DNI. Patient named her sister Meli Jade as her POA. ( [phone]). I spoke to Mrs. Meli Yanes over the phone. She lives in [place], unable to come for family meeting but agreed that the other sister Chris Alicia could be called for family meeting. Goals of care discussed with Mrs. Garrison over the phone. She understands patient's diagnosis and is not sure that patient would be able to return home as she DOES NOT have support as she stated it to me earlier. Mrs. Garrison would like [facility] to be considered first than later LTC or Hospice. We agreed to have Family meeting tomorrow with other sister Josee and Mrs. Garrison available on the speaker. - Plan Interdisciplinary involved: Nurse, bull gang worker, health safety and environment manager, Physician, Pastoral care Discharge planning: Subacute (Patient's sister asking for PELON as patient does not have enough support at home.) Assessment & Plan - Assessment and Plan (Free Text) Assessment: Assessment * Metastatic cancer * Pain cancer related. Patient takes 0.5 mg Dilaudid IV PRN Q 4 hr. Doses are give every 4 hr on dot, as patient's pain returns in 3-4 hr from last dose. This indicate that patient's chronic pain is not adequately managed. 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 I would start with Fentanyl patch 25 mcg Q 72 hr for managing chronic , cancer pain * Would keep Dilaudid 0.5 Iv Q 4 hr PRN breakthrough pain. In about 17 hr patient should start feeling effect of Fentanyl and thus would decrease use of Dilaudid IV. * Refer to Dietitian for diet preferences. Offer ice cream, lactulose free yogurt or pudding , ice chips. * Small, frequent portions of cold beverages * If patient able to tolerate PO ;iquids and soft food, consider D/C TPN * Refer to Psych for treatment of depression. Would start Zoloft 50 mg PO Q HS in meantime. * Would order DNR/DNI status , based on POA document * [facility] discharge planing. I will schedule family meeting for tomorrow for further goals of care discussion. Advance care plaining 60 min.
[2018-08-03] MEDS: Albuterol-Ipratrop 3 mg / 0.5 (3 ml) UD INH SCH ×6 (00:12→20:20)
--- NOTE | 2018-08-03 00:29 | CP.PCM.PN ---
Subjective - Date & Time of Evaluation Date of Evaluation: 08/02/18 Time of Evaluation: 19:20 - Subjective Subjective: LATE ENTRY . 08/02/18 PT. SEEN AT 7.45PM AFEBRILE. C/O DIFFUSE ABDOMINAL PAIN. POOR APPETITE. C/O WATERY,OILY STOOLS. LABS REVIEWED. WBC INCREASING 17.3 BLOOD CULTURE +VE kLEBSIELLA PNEUMONIAE ( PANSENSITIVE. ) DISCUSSED WITH MICROBIOLOGY- PATIENT ALSO SENSITIVE TO AZACTAM. PLAN; GET STOOL C.DIFFICILE TOXIN. NOTED IV IMIPENEM ADDED BY PMD 08/02/18 CONTINUE IV AZACTAM FOR NOW . CONTINUE IV FLAGYL. PTS ALKALINE PO4 INCREASING -SEC TO METASTATIC DISEASE PT SEEN BY PALLIATIVE CARE TODAY. Objective - Vital Signs/Intake and Output Vital Signs (last 24 hours): Temp Pulse Resp BP Pulse Ox 98.2 F 86 20 129/83 99 08/02/18 16:03 08/02/18 16:03 08/02/18 16:03 08/02/18 16:03 08/02/18 16:03 - Medications Medications: Current Medications Albuterol/Ipratropium (Duoneb 3 Mg/0.5 Mg (3 Ml) Ud) 3 ml INH RQ4 MELVA Last Admin: 08/03/18 00:12 Dose: Not Given Enoxaparin Sodium (Lovenox) 60 mg SC Q12 MELVA Last Admin: 08/02/18 21:26 Dose: 60 mg Famotidine (Pepcid) 20 mg PO DAILY MELVA Last Admin: 08/02/18 09:57 Dose: 20 mg Hydromorphone HCl (Dilaudid) 0.5 mg IVP Q4H MELVA Last Admin: 08/02/18 20:32 Dose: 0.5 mg Aztreonam 1 gm/ Sodium (Chloride) 100 mls @ 100 mls/hr IVPB Q8H MELVA; Protocol Last Admin: 08/02/18 20:27 Dose: 100 mls/hr Metronidazole (Flagyl) 500 mg in 100 mls @ 100 mls/hr IVPB Q8H MELVA; Protocol Last Admin: 08/02/18 21:26 Dose: 100 mls/hr Dextrose/Sodium Chloride (Dextrose 5%/0.9% Ns 1000 Ml) 1,000 mls @ 100 mls/hr IV .Q10H MELVA Last Admin: 08/02/18 13:05 Dose: 100 mls/hr Imipenem/Cilastatin Sodium 500 (mg/ Sodium Chloride) 100 mls @ 100 mls/hr IVPB Q8H MELVA; Protocol Last Admin: 08/02/18 19:22 Dose: 100 mls/hr Multi-Ingredient Ointment (Prep-Hem) 0 ea TOP BID PRN PRN Reason: Hemorrhoids Last Admin: 07/24/18 21:35 Dose: 1 applic Multivitamins/Vitamin C (Multi-Delyn Liquid) 5 ml PO DAILY MELVA Last Admin: 08/02/18 09:57 Dose: 5 ml Ondansetron HCl (Zofran Inj) 4 mg IVP Q8H PRN PRN Reason: Nausea/Vomiting Last Admin: 07/23/18 11:25 Dose: 4 mg - Labs Labs: 08/02/18 11:45 08/02/18 11:45 PT 15.4 SECONDS (9.7-12.2) H 07/13/18 18:31 INR 1.4 07/13/18 18:31 APTT 34.0 SECONDS (21-34) 07/13/18 18:31 - Constitutional Appears: No Acute Distress - Head Exam Head Exam: NORMAL INSPECTION - Eye Exam Eye Exam: EOMI, PERRL - ENT Exam ENT Exam: Normal Oropharynx - Neck Exam Neck Exam: Normal Inspection - Respiratory Exam Respiratory Exam: Decreased Breath Sounds, NORMAL BREATHING PATTERN - Cardiovascular Exam Cardiovascular Exam: REGULAR RHYTHM, +S1, +S2 - GI/Abdominal Exam GI & Abdominal Exam: Soft, Tenderness (DIFFUSE), Normal Bowel Sounds, Organomegaly - Extremities Exam Extremities Exam: Normal Capillary Refill. absent: Calf Tenderness, Pedal Edema - Neurological Exam Neurological Exam: Alert, Awake, CN II-XII Intact, Oriented x3, Reflexes Normal - Psychiatric Exam Psychiatric exam: Depressed - Skin Skin Exam: Normal Color, Warm Assessment and Plan (1) Gram-negative sepsis Assessment & Plan: BLOOD CULTURE 2:2 SETS +VE kLEBSIELLA PNEUMONIAE-- HERNANDEZ SENSITIVE NOTED iv IMIPENEM 500 MG EVERY 8 HOURLY ADDED BY pmd 08/02/18 CONTINUE ON iv AZACTAM 1 G iv PIGGYBACK EVERY 8 HOURLY 07/31/18 FOR NOW . CONTINUE IV fLAGYL 500 MG EVERY 8 HOURLY 08/01/18. CHECK STOOL c. DIFFICILE TOXIN. F/U cbc WITH DIFFERENTIAL/AND bmp IN A.M. Status: Acute (2) Pancreatic cancer metastasized to liver Status: Acute (3) Abdominal pain Status: Acute (4) Anemia Status: Acute
[2018-08-03] MEDS: HYDROmorphone 0.5 mg/0.5 ml ISec IVP SCH ×6 (00:30→20:24)
[2018-08-03] MEDS: Dextrose 5%/0.9% NS 1,000 ML IV SCH ×3 (03:09→19:00)
[2018-08-03] MEDS: Aztreonam 1 GM in Sodium Chloride 0.9% 100 ML IVPB SCH ×3 (04:15→21:12)
[2018-08-03] MEDS: metroNIDAZOLE IV 500 mg/100 ml 500 MG/100 ML BAG IVPB SCH ×3 (06:17→22:37)
[2018-08-03] MEDS: Enoxaparin 60 mg Syringe SC SCH ×2 (09:51→21:37)
[2018-08-03] MEDS: Multiple Vitamins Oral Solution PO SCH (09:51)
[2018-08-04] MEDS: HYDROmorphone 0.5 mg/0.5 ml ISec IVP SCH ×6 (00:30→20:29)
[2018-08-04] MEDS: Albuterol-Ipratrop 3 mg / 0.5 (3 ml) UD INH SCH ×6 (01:27→19:19)
[2018-08-04] MEDS: Aztreonam 1 GM in Sodium Chloride 0.9% 100 ML IVPB SCH ×2 (04:31→12:08)
[2018-08-04] MEDS: metroNIDAZOLE IV 500 mg/100 ml 500 MG/100 ML BAG IVPB SCH ×3 (05:52→22:17)
[2018-08-04] MEDS: Dextrose 5%/0.9% NS 1,000 ML IV SCH ×3 (05:54→14:41)
--- NOTE | 2018-08-04 08:36 | CP.PCM.PN ---
Subjective - Date & Time of Evaluation Date of Evaluation: 08/01/18 Time of Evaluation: 08:36 Objective - Vital Signs/Intake and Output Vital Signs (last 24 hours): Temp Pulse Resp BP Pulse Ox 98.2 F 77 20 116/76 98 08/04/18 08:00 08/04/18 08:00 08/04/18 08:00 08/04/18 08:00 08/04/18 08:00 Intake and Output: 08/04/18 08/04/18 06:59 18:59 Intake Total 920 Balance 920 - Medications Medications: Current Medications Albuterol/Ipratropium (Duoneb 3 Mg/0.5 Mg (3 Ml) Ud) 3 ml INH RQ4 MELVA Last Admin: 08/04/18 07:40 Dose: Not Given Enoxaparin Sodium (Lovenox) 60 mg SC Q12 MELVA Last Admin: 08/03/18 21:37 Dose: 60 mg Famotidine (Pepcid) 20 mg PO DAILY MELVA Last Admin: 08/03/18 09:51 Dose: 20 mg Hydromorphone HCl (Dilaudid) 0.5 mg IVP Q4H MELVA Last Admin: 08/04/18 04:32 Dose: 0.5 mg Aztreonam 1 gm/ Sodium (Chloride) 100 mls @ 100 mls/hr IVPB Q8H MELVA; Protocol Last Admin: 08/04/18 04:31 Dose: 100 mls/hr Metronidazole (Flagyl) 500 mg in 100 mls @ 100 mls/hr IVPB Q8H MELVA; Protocol Last Admin: 08/04/18 05:52 Dose: 100 mls/hr Dextrose/Sodium Chloride (Dextrose 5%/0.9% Ns 1000 Ml) 1,000 mls @ 100 mls/hr IV .Q10H MELVA Last Admin: 08/04/18 05:58 Dose: Not Given Imipenem/Cilastatin Sodium 500 (mg/ Sodium Chloride) 100 mls @ 100 mls/hr IVPB Q8H MELVA; Protocol Last Admin: 08/04/18 03:22 Dose: 100 mls/hr Multi-Ingredient Ointment (Prep-Hem) 0 ea TOP BID PRN PRN Reason: Hemorrhoids Last Admin: 07/24/18 21:35 Dose: 1 applic Multivitamins/Vitamin C (Multi-Delyn Liquid) 5 ml PO DAILY MELVA Last Admin: 08/03/18 09:51 Dose: 5 ml Ondansetron HCl (Zofran Inj) 4 mg IVP Q8H PRN PRN Reason: Nausea/Vomiting Last Admin: 08/04/18 00:30 Dose: 4 mg - Labs Labs: 08/02/18 11:45 08/02/18 11:45 PT 15.4 SECONDS (9.7-12.2) H 07/13/18 18:31 INR 1.4 07/13/18 18:31 APTT 34.0 SECONDS (21-34) 07/13/18 18:31
[2018-08-04] MEDS: Enoxaparin 60 mg Syringe SC SCH ×2 (09:27→21:14)
[2018-08-04] MEDS: Multiple Vitamins Oral Solution PO SCH (09:27)
[2018-08-04 11:43] LABS: BASO # 0.2 K/uL (0.0-0.2); BASO % 0.8 % (0.0-2.0); EOS # 0.9 K/uL (0.0-0.7); EOS % 5.1 % (0.0-4.0); HEMOGLOBIN 8.6 g/dL (11.0-16.0); LYMPH # 1.4 K/uL (1.0-4.3); LYMPH % 7.7 % (20.0-40.0); MEAN CELL VOLUME 79.2 fL (81.0-99.0); MEAN CORPUSCULAR HEMOGLOBIN 25.6 pg (27.0-31.0); MEAN CORPUSCULAR HGB CONC 32.3 g/dL (33.0-37.0); MEAN PLATELET VOLUME 7.3 fL (7.2-11.7); MONO # 1.6 K/uL (0.0-0.8); MONO % 8.6 % (0.0-10.0); NEUT # 14.3 K/uL (1.8-7.0); NEUT % 77.8 % (50.0-75.0); RBC 3.35 Mil/uL (3.80-5.20); RED CELL DISTRIBUTION WIDTH 20.6 % (11.5-14.5); WHITE BLOOD COUNT 18.4 K/uL (4.8-10.8)
[2018-08-04 11:52] LABS: PLATELET COUNT 463 K/uL (130-400)
[2018-08-04 12:06] LABS: ALB/GLOB RATIO 0.8 (1.0-2.1); ALBUMIN 2.1 g/dL (3.5-5.0); ALT/SGPT 33 U/L (9-52); AST/SGOT 82 U/L (14-36); BLOOD UREA NITROGEN 2 mg/dL (7-17); CALCIUM 7.7 mg/dl (8.6-10.4); GFR NON-AFRICAN AMERICAN > 60
--- NOTE | 2018-08-04 12:14 | CP.PCM.PN ---
Subjective - Date & Time of Evaluation Date of Evaluation: 08/04/18 Time of Evaluation: 12:14 - Subjective Subjective: AFEBRILE. TMAX 99.4 C/O DIFFUSE ABDOMINAL PAIN. POOR APPETITE. LABS REVIEWED. WBC INCREASING 18.4 / WORSENING MOST PROBABLY SECONDARY TO METASTATIC PANCREATIC CA. STOOL C. DIFFICILE -VE BLOOD CULTURE +VE kLEBSIELLA PNEUMONIAE ( PANSENSITIVE. ) PLAN ; WILL ADJUST ABX. DC IV AZACTAM DC IV PRIMAXIN. START IV MERREM 1GM IVPB Q 8HRLY .08/04/18. CONTINUE IV FLAGYL 500MG IV Q 8HRLY.08/01/18 REPEAT BLOOD CULTURE X 2 SETS Objective - Vital Signs/Intake and Output Vital Signs (last 24 hours): Temp Pulse Resp BP Pulse Ox 98.2 F 77 20 116/76 98 08/04/18 08:00 08/04/18 08:00 08/04/18 08:00 08/04/18 08:00 08/04/18 08:00 Intake and Output: 08/04/18 08/04/18 06:59 18:59 Intake Total 920 Balance 920 - Medications Medications: Current Medications Albuterol/Ipratropium (Duoneb 3 Mg/0.5 Mg (3 Ml) Ud) 3 ml INH RQ4 MELVA Last Admin: 08/04/18 07:40 Dose: Not Given Enoxaparin Sodium (Lovenox) 60 mg SC Q12 MELVA Last Admin: 08/04/18 09:27 Dose: 60 mg Famotidine (Pepcid) 20 mg PO DAILY MELVA Last Admin: 08/04/18 09:26 Dose: 20 mg Hydromorphone HCl (Dilaudid) 0.5 mg IVP Q4H MELVA Last Admin: 08/04/18 08:43 Dose: 0.5 mg Aztreonam 1 gm/ Sodium (Chloride) 100 mls @ 100 mls/hr IVPB Q8H MELVA; Protocol Last Admin: 08/04/18 12:08 Dose: 100 mls/hr Metronidazole (Flagyl) 500 mg in 100 mls @ 100 mls/hr IVPB Q8H MELVA; Protocol Last Admin: 08/04/18 05:52 Dose: 100 mls/hr Dextrose/Sodium Chloride (Dextrose 5%/0.9% Ns 1000 Ml) 1,000 mls @ 100 mls/hr IV .Q10H [facility] Last Admin: 08/04/18 05:58 Dose: Not Given Imipenem/Cilastatin Sodium 500 (mg/ Sodium Chloride) 100 mls @ 100 mls/hr IVPB Q8H [facility]; Protocol Last Admin: 08/04/18 11:05 Dose: 100 mls/hr Multi-Ingredient Ointment (Prep-Hem) 0 ea TOP BID PRN PRN Reason: Hemorrhoids Last Admin: 07/24/18 21:35 Dose: 1 applic Multivitamins/Vitamin C (Multi-Delyn Liquid) 5 ml PO DAILY [facility] Last Admin: 08/04/18 09:27 Dose: 5 ml Ondansetron HCl (Zofran Inj) 4 mg IVP Q8H PRN PRN Reason: Nausea/Vomiting Last Admin: 08/04/18 00:30 Dose: 4 mg - Labs Labs: 08/04/18 11:37 08/04/18 11:37 PT 15.4 SECONDS (9.7-12.2) H 07/13/18 18:31 INR 1.4 07/13/18 18:31 APTT 34.0 SECONDS (21-34) 07/13/18 18:31 - Constitutional Appears: No Acute Distress - Head Exam Head Exam: NORMAL INSPECTION - Eye Exam Eye Exam: EOMI, PERRL - ENT Exam ENT Exam: Normal Oropharynx - Neck Exam Neck Exam: Normal Inspection - Respiratory Exam Respiratory Exam: Decreased Breath Sounds, NORMAL BREATHING PATTERN - Cardiovascular Exam Cardiovascular Exam: REGULAR RHYTHM, +S1, +S2 - GI/Abdominal Exam GI & Abdominal Exam: Soft, Tenderness (DIFFUSE GENERALIZED.), Normal Bowel Sounds - Neurological Exam Neurological Exam: Alert, Awake, CN II-XII Intact, Oriented x3, Reflexes Normal - Psychiatric Exam Psychiatric exam: Normal Mood - Skin Skin Exam: Normal Color, Warm Assessment and Plan (1) Gram-negative sepsis Status: Acute (2) Pancreatic cancer metastasized to liver Status: Acute (3) Abdominal pain Status: Acute (4) Anemia Status: Acute
[2018-08-04 12:26] LABS: EOSINOPHIL 4 % (0-4); LYMPHOCYTE 2 % (20-40); MONOCYTE 6 % (0-10); NEUTROPHIL 88 % (50-75); PLATELET ESTIMATE SLIGHTLY INCREASED (NORMAL); TOTAL CELLS COUNTED 100
[2018-08-04 12:27] LABS: ANISOCYTOSIS SLIGHT; HYPOCHROMIC MODERATE; POIKILOCYTOSIS SLIGHT
[2018-08-04 12:28] LABS: TARGET CELLS SLIGHT
[2018-08-04] MEDS: Meropenem 1 GM in Sodium Chloride 0.9% 100 ML IVPB SCH ×2 (13:49→21:09)
--- NOTE | 2018-08-04 16:05 | CP.PCM.PCO ---
Physician Communication Note - Physician Communication Note Physician Communication Note: Family meeting tomorrow at 11 am with sister Maral.
[2018-08-04] MEDS: Potassium Chloride 20 mEq/15 ml LIQ UD PO ONE ×2 (17:26→17:33)
[2018-08-05] MEDS: Albuterol-Ipratrop 3 mg / 0.5 (3 ml) UD INH SCH ×5 (00:02→16:21)
[2018-08-05] MEDS: HYDROmorphone 0.5 mg/0.5 ml ISec IVP SCH ×6 (00:35→19:45)
[2018-08-05] MEDS: Dextrose 5%/0.9% NS 1,000 ML IV SCH ×4 (01:00→19:46)
[2018-08-05] MEDS: Meropenem 1 GM in Sodium Chloride 0.9% 100 ML IVPB SCH ×2 (04:26→12:54)
[2018-08-05] MEDS: metroNIDAZOLE IV 500 mg/100 ml 500 MG/100 ML BAG IVPB SCH ×2 (05:30→13:52)
[2018-08-05 07:49] VITALS: BP 105/66; PULSE 83; TEMP 98.4; O2SAT 95
[2018-08-05] MEDS: Multiple Vitamins Oral Solution PO SCH (10:11)
[2018-08-05] MEDS: Enoxaparin 60 mg Syringe SC SCH (10:12)
--- NOTE | 2018-08-05 12:42 | PCM.PPROG ---
History of Present Illness - History of Present Illness History of Present Illness: Patient examined in bed, looking chronically ill. Patient looks worse since I saw her 2 days ago. Patient looks like if she had lost weight. Patient reports not being able to tolerate food. Nursing reports patient vomiting and complain ing of nausea. Patient's main issues is her cancer pain, which she describes as 10/10 in its peak. Dilaudid 0,5mg dose is not keeping her comfortable from pain as it used to; patient is asking for next dose every 2 hr now. BP is getting low, 105/66. WBC mg to 18.4 despite IV antibiotics, its believed to be caused by cancer progression. Family meeting held today for goals of care discussion. Hospice care discussed and agreed upon with patient and her 2 sisters. Review of Systems - Constitutional Constitutional: Malaise, Weight Loss - EENT Eyes: absent: As Per HPI, Blind Spots, Blurred Vision, Change in Vision, Decreased Night Vision, Diplopia, Discharge, Dry Eye, Exophthalmos, Floaters, Irritation, Itchy Eyes, Loss of Peripheral Vision, Pain, Photophobia, Requires Corrective Lenses, Sees Flashes, Spots in Vision, Tunnel Vision, Other Visual Disturbances, Loss of Vision, Other Ears: absent: As Per HPI, Decreased Hearing, Ear Discharge, Ear Pain, Tinnitus, Abnormal Hearing, Disequilibrium, Dizziness, Other Nose/Mouth/Throat: absent: As Per HPI, Epistaxis, Nasal Congestion, Nasal Discharge, Nasal Obstruction, Nasal Trauma, Nose Pain, Post Nasal Drip, Sinus Pain, Sinus Pressure, Bleeding Gums, Change in Voice, Dental Pain, Dry Mouth, Dysphagia, Halitosis, Hoarsness, Lip Swelling, Mouth Lesions, Mouth Pain, Odynophagia, Sore Throat, Throat Swelling, Tongue Swelling, Facial Pain, Neck Pain, Neck Mass, Other - Breasts Breasts: absent: As Per HPI, Change in Shape, Mass, Pain, Nipple Discharge, Nipple Inversion, Skin Changes, Swelling, Other - Cardiovascular Cardiovascular: absent: As Per HPI, Acrocyanosis, Chest Pain, Chest Pain at Rest, Chest Pain with Activity, Claudication, Diaphoresis, Dyspnea, Dyspnea on Exertion, Edema, Irregular Heart Rhythm, Pain Radiating to Arm/Neck/Jaw, Leg Edema, Leg Ulcers, Lightheadedness, Orthopnea, Palpitations, Paroxysmal Nocturnal Dyspnea, Pedal Edema, Radiating Pain, Rapid Heart Rate, Slow Heart Rat e, Syncope, Other - Respiratory Respiratory: absent: As Per HPI, Cough, Dyspnea, Hemoptysis, Dyspnea on Exertion, Wheezing, Snoring, Stridor, Pain on Inspiration, Chest Congestion, Excessive Mucous Production, Change in Mucous Color, Pain with Coughing, Other - Gastrointestinal Gastrointestinal: Dyspepsia, Nausea, Vomiting - Genitourinary Genitourinary: absent: As Per HPI, Change in Urinary Stream, Difficulty Urinating, Dysuria, Flank Pain, Hematuria, Pyuria, Nocturia, Urinary I ncontinence, Urinary Frequency, Urinary Hesitance, Urinary Urgency, Voiding Freq/Small Amts, Freq UTI, Hx Renal/Bladder Calculi, Hx /Renal Surgery, Bladder Distension, Other - Reproductive: Female Reproductive:Female: Post Menopausal - Menstruation Menstruation: Post Menopausal - Musculoskeletal Musculoskeletal: Abnormal Gait, Muscle Weakness, Myalgias - Integumentary Integumentary: Dry Skin - Neurological Neurological: Focal Weakness, Weakness - Psychiatric Psychiatric: Anxiety - Endocrine Endocrine: Fatigue - Hematologic/Lymphatic Hematologic: absent: As Per HPI, Easy Bleeding, Easy Bruising, Lymphadenopathy, Other Physical Exam - Constitutional Appears: In Acute Distress, Chronically Ill - Head Exam Head Exam: ATRAUMATIC, NORMAL INSPECTION, NORMOCEPHALIC - Eye Exam Eye Exam: EOMI, Normal appearance, PERRL Pupil Exam: NORMAL ACCOMODATION, PERRL - ENT Exam ENT Exam: Mucous Membranes Dry - Neck Exam Neck exam: Positive for: Normal Inspection - Respiratory Exam Respiratory Exam: Decreased Breath Sounds, Clear to Auscultation Bilateral, NORMAL BREATHING PATTERN - Cardiovascular Exam Cardiovascular Exam: Tachycardia, REGULAR RHYTHM, +S1, +S2 - GI/Abdominal Exam GI & Abdominal Exam: Normal Bowel Sounds, Soft Additional comments: food intolerance - Rectal Exam Rectal Exam: Deferred - Extremities Exam Extremities exam: Positive for: normal inspection - Back Exam Back exam: NORMAL INSPECTION - Neurological Exam Neurological exam: Alert, Oriented x3 - Psychiatric Exam Psychiatric exam: Agitated, Anxious, Depressed - Skin Skin Exam: Dry, Intact, Pallor, Warm Palliative Care Assessment - Modified MRC Dyspnea Scale Modified MRC Dyspnea Scale: Not troubled by breathlessness except on strenous exercise Grade: 1 - Pain Scale Pain Scale Used: Numeric - Pain Location Left, Right or Bilateral: Bilateral Pain Location Body Site: Abdomen - Pain Description Description: Constant, Dull, Throbbing Intensity of pain at present: 10 Acceptable Level of Pain: 3 Radiation Location: NA Variations/Patterns: Pain increases at end of dose Duration: Chronic Pain Behavior: Moaning, Crying, Irritability, Rubbing Site, Restlessness, Facial Grimacing Aggravating Factors: Changing Position Alleviating Factors/Management Techniques: Medication, Distraction Effects of Pain: affects sleep, mood and overall wellbeing Effectiveness of Techniques: Pain not well controled by current pain meds - Jayden Scale Sensory Perception: No Impairment Moisture: Rarely Moist Activity: Bedfast Mobility: Slightly Impaired Nutrition: Probably Inadequate Friction & Shear: Potential Problem Total Score - Skin Risk Assessment: 16 - Psychosocial Distress Patient screened for psychosocial distress: Yes Psychosocial Intervention(s): patient is highly distressed by her current condition and diagnosis. Patient begins to realize the prognosis is poor. Hospice care discussed. Patient cried , saying it was too sad, but accepted it. patient's decision was supported by her 2 sisters, Meli and Maral. Outcome: Other (Refered to Hospice) Palliative Care - Goals Goal(s) of care: Patient concerns and values of care discussed. Patient stated being determined to fight cancer. She wishes to be able to tolerate food and return home. Patient feels she is not offered food of choice while here; she feels if she was home she would be able to eat much better. Patient reports having sufficient support at home. 08/05/18 11 am Family meeting attended by patient, her sister Maral in person, sister Meli on the phone, VICKI Rogers and myself. Patient's clinical condition reviewed. Patient cried , complaining of severe pain not well managed by current pain meds. I offered information regarding the restrictions of increasing the pain meds dose due to risk of low BP and respiratory distress. Hospice care introduced. patient and family agreed. Patient's main goal was a pain relief at this time. Treatment Goal(s): Alleviate symptoms, Improve ADLs, Improve quality of life End of life care discussed: Yes End of life discussion: I reviewed patient's clinical condition and elicited her concerns and expectations. Patient is aware of her metastatic disease; on daily PO chemo Tx. Patient is willing to fight disease as long as possible. If her condition decline drastically and she should need life support to prolong her life, patient wishes to be allowed natural . Patient has a POA Document at home. She was able to show me copy of it on her phone. The copy of document indicates patient's wishes for DNR/DNI. Patient named her sister Meli Jade as her POA. ( [phone]). I spoke to Mrs. Meli Yanes over the phone. She lives in [place], unable to come for family meeting but agreed that the other sister Chris Alicia could be called for family meeting. Goals of care discussed with Mrs. Garrison over the phone. She understands patient's diagnosis and is not sure that patient would be able to return home as she DOES NOT have support as she stated it to me earlier. Mrs. Garrison would like [facility] to be considered first than later LTC or Hospice. We agreed to have Family meeting tomorrow with other sister Josee and Mrs. Garrison available on the speaker. - Plan Interdisciplinary involved: Nurse, community worker, Physician Discharge planning: Hospice Assessment & Plan - Assessment and Plan (Free Text) Assessment: Assessment * Food intolerance * Unwanted weight loss * Severe cancer related pain, not managed well by current dose * Patient is requesting increase in comfort over the curative measures * Patient and family understood that patient's condition is uncurable and are requesting comfort care * Patient is very weak, unable to leave bed st this time Suggestions * Would offer food of choice only, mostly cold and refreshing drinks, chicken broath, apple sauce * Would remove Port a Cath as it could be source of infection * Would stop all IV antibiotics, oral chemo Tx and blood work and diagnostic studies * Hospice eval * Would start on Morphine drip at 2 mg/hr for pain control * DNR/DNI Palliative care will remain on board until hospice takes over. This was shared with nursing and Doctor Yris. Advance Care planing 60 min
--- NOTE | 2018-08-05 13:43 | CP.PCM.PN ---
Subjective - Date & Time of Evaluation Date of Evaluation: 08/05/18 Time of Evaluation: 13:43 - Subjective Subjective: afebrile, Very weak and depressed. Events noted. s/p family meeting with palliative care. labs; Reviewed Repeat blood cultures -ve x 24 hours. Plan ' ON IV ABX As per family and patient -FOR HOSPICE CARE. CONTINUE SUPPORTIVE CARE Objective - Vital Signs/Intake and Output Vital Signs (last 24 hours): Temp Pulse Resp BP Pulse Ox 98.4 F 83 20 105/66 95 08/05/18 07:00 08/05/18 07:00 08/05/18 07:00 08/05/18 07:00 08/05/18 07:00 Intake and Output: 08/05/18 08/05/18 06:59 18:59 Intake Total 740 980 Balance 740 980 - Medications Medications: Current Medications Albuterol/Ipratropium (Duoneb 3 Mg/0.5 Mg (3 Ml) Ud) 3 ml INH RQ4 MELVA Last Admin: 08/05/18 13:09 Dose: Not Given Enoxaparin Sodium (Lovenox) 60 mg SC Q12 MELVA Last Admin: 08/05/18 10:12 Dose: 60 mg Famotidine (Pepcid) 20 mg PO DAILY MELVA Last Admin: 08/05/18 09:41 Dose: 20 mg Hydromorphone HCl (Dilaudid) 0.5 mg IVP Q4H MELVA Last Admin: 08/05/18 12:24 Dose: 0.5 mg Metronidazole (Flagyl) 500 mg in 100 mls @ 100 mls/hr IVPB Q8H MELVA; Protocol Last Admin: 08/05/18 05:30 Dose: 100 mls/hr Dextrose/Sodium Chloride (Dextrose 5%/0.9% Ns 1000 Ml) 1,000 mls @ 100 mls/hr IV .Q10H MELVA Last Admin: 08/05/18 13:27 Dose: Not Given Meropenem 1 gm/ Sodium (Chloride) 100 mls @ 100 mls/hr IVPB Q8H MELVA; Protocol Last Admin: 08/05/18 12:54 Dose: 100 mls/hr Multi-Ingredient Ointment (Prep-Hem) 0 ea TOP BID PRN PRN Reason: Hemorrhoids Last Admin: 07/24/18 21:35 Dose: 1 applic Multivitamins/Vitamin C (Multi-Delyn Liquid) 5 ml PO DAILY MELVA Last Admin: 08/05/18 10:11 Dose: 5 ml Ondansetron HCl (Zofran Inj) 4 mg IVP Q8H PRN PRN Reason: Nausea/Vomiting Last Admin: 08/05/18 00:50 Dose: 4 mg - Labs Labs: 08/04/18 11:37 08/04/18 11:37 PT 15.4 SECONDS (9.7-12.2) H 07/13/18 18:31 INR 1.4 07/13/18 18:31 APTT 34.0 SECONDS (21-34) 07/13/18 18:31 - Constitutional Appears: No Acute Distress, Chronically Ill - Head Exam Head Exam: NORMAL INSPECTION - Eye Exam Eye Exam: EOMI, PERRL - ENT Exam ENT Exam: Normal Oropharynx - Neck Exam Neck Exam: Normal Inspection - Respiratory Exam Respiratory Exam: Decreased Breath Sounds, NORMAL BREATHING PATTERN - Cardiovascular Exam Cardiovascular Exam: REGULAR RHYTHM, +S1, +S2 - GI/Abdominal Exam GI & Abdominal Exam: Soft, Tenderness (GENERALIZED), Hypoactive Bowel Sounds - Extremities Exam Extremities Exam: Normal Capillary Refill, Pedal Edema. absent: Calf Tenderness - Neurological Exam Neurological Exam: Alert, Awake, CN II-XII Intact, Oriented x3 - Psychiatric Exam Psychiatric exam: Depressed - Skin Skin Exam: Normal Color, Warm Assessment and Plan (1) Gram-negative sepsis Status: Acute (2) Pancreatic cancer metastasized to liver Status: Acute (3) Abdominal pain Status: Acute (4) Anemia Status: Acute
== END 2018-08-05 20:50 | disposition home health service (06) | DRG 872 ==
LOC: C.ER 16:41 → C.9E 19:17 → C.3T 21:09
PROVIDERS: ADMIT Internal Medicine; ATTEND Internal Medicine
PROC: 3E0436Z Introduction of Nutritional Substance into Central Vein, Percutaneous Approach (ICD-10-PCS; principal; 2018-07-27)
DX: A41.59 Other Gram-negative sepsis (principal); C25.9 Malignant neoplasm of pancreas, unspecified; I42.9 Cardiomyopathy, unspecified; R18.8 Other ascites; C78.7 Secondary malignant neoplasm of liver and intrahepatic bile duct; I82.491 Acute embolism and thrombosis of other specified deep vein of right lower extremity; R65.20 Severe sepsis without septic shock; M81.0 Age-related osteoporosis without current pathological fracture; Z87.891 Personal history of nicotine dependence; E11.9 Type 2 diabetes mellitus without complications; F41.9 Anxiety disorder, unspecified; K52.9 Noninfective gastroenteritis and colitis, unspecified; Z51.5 Encounter for palliative care; D63.0 Anemia in neoplastic disease; R63.0 Anorexia